=== PATIENT | female | born 1990 | race Caucasian/White ===

== ENCOUNTER 2017-10-14 06:07 | Inpatient (IN) | payer MEDICARE, MEDICAID ==
[~2017-10-14] VITALS: Ht 152.4 cm; Wt 53.1 kg
[~2017-10-14 06:07] MED LIST: ANAPROX DS550 MG PO; AUGMENTIN 875 M1 TAB PO; BACTRIM DS 8001 TA1 PO; CLARITIN10 MG PO; CLINDAMYCIN150 MG PO; CYMBALTA60 MG PO; DIFLUCAN150 MG PO; FLEXERIL10 MG; FLEXERIL10 MG PO; FLEXERIL5 MG PO; HUMALOG 751 UNIT/0.0 SC; HUMALOG100 U/ML SC; INSULIN REGULAR HUMAN IV; INSULIN SYRING1 EAC1 MC; LANTUS100 U/ML; LANTUS100 U/ML SC; LISINOPRIL10 MG PO; MIRALAX POWDER255 GM PO; MOTRIN400 MG PO; MOTRIN800 MG PO; NAPROSYN500 MG PO; NEURONTIN300 MG PO; NORCO 325 MG-51 TAB PO; PROVENTIL0.09 MG/AC IH; SEPTRA DS 800 M1 TAB PO; SEROQUEL200 MG PO; SLIDING SCALE INSULI; TEST STRIPS1 EACH MC; TRAMADOL HCL50 MG PO; TRICOR134 MG PO; ULTRAM50 MG PO; VICODIN 5/500 505 MG PO; VICODIN 500 MG-1 TAB PO; XANAX1 MG PO; ZANTAC150 MG PO; ZOCOR20 MG PO; ZOFRAN4 MG PO
[2017-10-14 06:10] VITALS: BP 132/92
[2017-10-14 06:38] LABS: BASO % 0.2 % (0.0-1.0); EOS % 0.1 % (1.0-4.0); HEMATOCRIT 42.2 % (37.0-47.0); HEMOGLOBIN 14.1 g/dl (12.0-16.0); LYMPH # 1.2 10*3/uL (1.3-4.4); MEAN CELL VOLUME 97.5 fl (81.0-99.0); MEAN CORPUSCULAR HGB 32.6 pg (27.0-31.0); MEAN CORPUSCULAR HGB CONC 33.4 g/dl (33.0-37.0); MEAN PLATELET VOLUME 10.2 fl (9.6-12.3); MONO # 0.7 10*3/uL (0.1-1.0); NEUT # 10.1 10*3/uL (2.3-7.9); NEUT % 82.6 % (47.0-73.0); PLATELET COUNT AUTOMATED 233 10*3/uL (130-400); RED BLOOD COUNT 4.33 10*6/uL (4.10-5.10); RED CELL DISTRI WIDTH 12.7 % (0-14.5); WHITE BLOOD COUNT 12.3 10*3/uL (4.8-10.8)
[2017-10-14 06:45] LABS: INTERNATIONAL NORM RATIO 0.9 (2.0-3.5)
[2017-10-14 06:53] LABS: ALBUMIN 3.9 gm/dl (3.1-4.5); ALKALINE PHOSPHATASE 184 U/L (45-117); BUN 25 mg/dl (7-24); CHLORIDE 86 mmol/L (98-107); CREATININE 2.11 mg/dL (0.55-1.02); LIPASE 48 U/L (73-393); POTASSIUM 3.9 mmol/L (3.5-5.1); SGOT/AST 15 IU/L (3-35); SGPT/ALT 28 U/L (12-78); SODIUM 129 mmol/L (136-145); TOTAL PROTEIN 8.8 gm/dL (6.4-8.2)
[2017-10-14 06:55] LABS: B-hCG (QUALITATIVE) NEGATIVE (NEGATIVE)
[2017-10-14 07:03] LABS: TROPONIN I < 0.015 ng/ml (<0.045)
[2017-10-14 07:31] VITALS: BP 118/72
[2017-10-14 08:00] VITALS: BP 123/54
[2017-10-14 09:05] LABS: BILIRUBIN NEGATIVE (NEGATIVE); BLOOD 1+ (NEGATIVE); CLARITY SL CLOUDY (CLEAR); COLOR YELLOW (YELLOW); GLUCOSE 2+ (NEGATIVE); KETONE 3+ (NEGATIVE); LEUKO ESTERASE NEGATIVE (NEGATIVE); NITRITE NEGATIVE (NEGATIVE); PH 5.5 (5.0-9.0); UROBILINOGEN 0.2 E.U./dl (0.2-1.0)
[2017-10-14 09:18] LABS: ALBUMIN 3.1 gm/dl (3.1-4.5); ALKALINE PHOSPHATASE 154 U/L (45-117); BUN 22 mg/dl (7-24); CHLORIDE 106 mmol/L (98-107); CREATININE 1.56 mg/dL (0.55-1.02); POTASSIUM 3.9 mmol/L (3.5-5.1); SGOT/AST 14 IU/L (3-35); SGPT/ALT 22 U/L (12-78); SODIUM 139 mmol/L (136-145)
[2017-10-14 09:27] LABS: TROPONIN I < 0.015 ng/ml (<0.045)
[2017-10-14] MEDS ORDERED: LANTUS SOL100 UNIT/1 SC (09:29)
[2017-10-14 09:37] LABS: BACTERIA 2+; EPITHELIAL CELLS 21-30; RBC 0-2 rbc/hpf (0-2)
[2017-10-14 09:54] LABS: VENOUS BLOOD GAS O2 SAT 85.9 % (40-85); VENOUS PH 7.102 (7.32-7.43)
[2017-10-14 12:00] VITALS: BP 131/89
[2017-10-14 12:23] LABS: ALBUMIN 3.2 gm/dl (3.1-4.5); ALKALINE PHOSPHATASE 145 U/L (45-117); BUN 19 mg/dl (7-24); CHLORIDE 109 mmol/L (98-107); PHOSPHOROUS 1.9 mg/dL (2.5-4.9); POTASSIUM 4.1 mmol/L (3.5-5.1); SGOT/AST 11 IU/L (3-35); SGPT/ALT 22 U/L (12-78); SODIUM 142 mmol/L (136-145); TOTAL PROTEIN 7.2 gm/dL (6.4-8.2)
[2017-10-14 12:24] LABS: TROPONIN I < 0.015 ng/ml (<0.045)
[2017-10-14 14:25] LABS: URINE AMPHETAMINES < 1000 (1000ng/ml); URINE BARBITURATES < 200 (200ng/ml); URINE BENZODIAZEPINES < 200 (200ng/ml); URINE CANNABINOIDS (THC) > 50 (50ng/ml); URINE COCAINE < 300 (300ng/ml); URINE METHADONE < 300 (300ng/ml); URINE OPIATES > 300 (300ng/ml); URINE PHENCYCLIDINE < 25 (25ng/ml)
[2017-10-14 16:00] VITALS: BP 108/69
[2017-10-14 16:11] LABS: ALBUMIN 3.1 gm/dl (3.1-4.5); CREATININE 1.41 mg/dL (0.55-1.02); PHOSPHOROUS 2.8 mg/dL (2.5-4.9); POTASSIUM 4.3 mmol/L (3.5-5.1); TOTAL PROTEIN 7.1 gm/dL (6.4-8.2)
[2017-10-14 18:35] LABS: ALBUMIN 2.8 gm/dl (3.1-4.5); CREATININE 1.37 mg/dL (0.55-1.02); PHOSPHOROUS 3.3 mg/dL (2.5-4.9); TOTAL PROTEIN 6.3 gm/dL (6.4-8.2)
[2017-10-14 20:00] VITALS: BP 120/78
[2017-10-15] VITALS: BP 92/58
[2017-10-15 00:20] LABS: BUN 11 mg/dl (7-24); CREATININE 1.25 mg/dL (0.55-1.02)
[2017-10-15 00:21] LABS: CHLORIDE 106 mmol/L (98-107); POTASSIUM 3.2 mmol/L (3.5-5.1); SODIUM 139 mmol/L (136-145)
[2017-10-15 04:00] VITALS: BP 95/62
[2017-10-15 04:05] LABS: BASO % 0.2 % (0.0-1.0); EOS # 0.1 10*3/uL (0.0-0.4); EOS % 0.8 % (1.0-4.0); LYMPH # 1.4 10*3/uL (1.3-4.4); LYMPH % 13.3 % (27.0-41.0); MEAN CELL VOLUME 96.4 fl (81.0-99.0); MEAN CORPUSCULAR HGB 32.5 pg (27.0-31.0); MEAN CORPUSCULAR HGB CONC 33.7 g/dl (33.0-37.0); MEAN PLATELET VOLUME 9.3 fl (9.6-12.3); MONO # 0.9 10*3/uL (0.1-1.0); MONO % 8.6 % (3.0-9.0); NEUT # 8.1 10*3/uL (2.3-7.9); NEUT % 76.7 % (47.0-73.0); RED BLOOD COUNT 3.05 10*6/uL (4.10-5.10); RED CELL DISTRI WIDTH 12.8 % (0-14.5); WHITE BLOOD COUNT 10.6 10*3/uL (4.8-10.8)
[2017-10-15 04:07] LABS: HEMATOCRIT 29.4 % (37.0-47.0); HEMOGLOBIN 9.9 g/dl (12.0-16.0); PLATELET COUNT AUTOMATED 162 10*3/uL (130-400)
[2017-10-15 04:38] LABS: BUN 9 mg/dl (7-24); CHLORIDE 106 mmol/L (98-107); CREATININE 1.13 mg/dL (0.55-1.02); POTASSIUM 3.5 mmol/L (3.5-5.1); SODIUM 139 mmol/L (136-145)
[2017-10-15 04:39] LABS: FREE T4 0.77 ng/dl (0.76-1.46); PHOSPHOROUS 1.3 mg/dL (2.5-4.9)
[2017-10-15 04:45] LABS: THYROID STIM HORMONE (HS) 1.85 uIU/ml (0.358-4.75)
[2017-10-15 07:24] LABS: VITAMIN D, 25-HYDROXY 12.8 ng/mL (30-100)
[2017-10-15 08:00] VITALS: BP 107/73
[2017-10-15 08:10] LABS: ALBUMIN 2.9 gm/dl (3.1-4.5); ALKALINE PHOSPHATASE 122 U/L (45-117); BUN 7 mg/dl (7-24); CHLORIDE 108 mmol/L (98-107); CREATININE 1.23 mg/dL (0.55-1.02); SGOT/AST 11 IU/L (3-35); SGPT/ALT 21 U/L (12-78); SODIUM 142 mmol/L (136-145); TOTAL PROTEIN 6.3 gm/dL (6.4-8.2)
[2017-10-15 08:17] LABS: PHOSPHOROUS 0.6 mg/dL (2.5-4.9)
[2017-10-15 10:52] LABS: ALBUMIN 2.8 gm/dl (3.1-4.5); ALKALINE PHOSPHATASE 117 U/L (45-117); BUN 6 mg/dl (7-24); CHLORIDE 106 mmol/L (98-107); CREATININE 1.16 mg/dL (0.55-1.02); PHOSPHOROUS 1.7 mg/dL (2.5-4.9); POTASSIUM 3.8 mmol/L (3.5-5.1); SGOT/AST 11 IU/L (3-35); SGPT/ALT 17 U/L (12-78); SODIUM 139 mmol/L (136-145); TOTAL PROTEIN 6.2 gm/dL (6.4-8.2)
[2017-10-15 12:00] VITALS: BP 108/66
[2017-10-15 13:24] LABS: BUN 6 mg/dl (7-24); CHLORIDE 105 mmol/L (98-107); POTASSIUM 3.5 mmol/L (3.5-5.1); SODIUM 138 mmol/L (136-145)
[2017-10-15 13:27] LABS: ALKALINE PHOSPHATASE 132 U/L (45-117); CREATININE 1.21 mg/dL (0.55-1.02); PHOSPHOROUS 3.1 mg/dL (2.5-4.9); SGOT/AST 12 IU/L (3-35); SGPT/ALT 21 U/L (12-78); TOTAL PROTEIN 6.7 gm/dL (6.4-8.2)
[2017-10-15 16:00] VITALS: BP 103/74
[2017-10-15 16:41] LABS: ALBUMIN 2.9 gm/dl (3.1-4.5); ALKALINE PHOSPHATASE 119 U/L (45-117); BUN 4 mg/dl (7-24); CHLORIDE 107 mmol/L (98-107); CREATININE 1.04 mg/dL (0.55-1.02); PHOSPHOROUS 2.8 mg/dL (2.5-4.9); POTASSIUM 3.5 mmol/L (3.5-5.1); SGOT/AST 12 IU/L (3-35); SGPT/ALT 18 U/L (12-78); SODIUM 140 mmol/L (136-145); TOTAL PROTEIN 6.4 gm/dL (6.4-8.2)
[2017-10-15 19:57] LABS: ALBUMIN 2.7 gm/dl (3.1-4.5); ALKALINE PHOSPHATASE 109 U/L (45-117); BUN 4 mg/dl (7-24); CHLORIDE 105 mmol/L (98-107); CREATININE 0.88 mg/dL (0.55-1.02); PHOSPHOROUS 3.9 mg/dL (2.5-4.9); POTASSIUM 3.8 mmol/L (3.5-5.1); SGOT/AST 13 IU/L (3-35); SGPT/ALT 16 U/L (12-78); SODIUM 138 mmol/L (136-145); TOTAL PROTEIN 5.9 gm/dL (6.4-8.2)
[2017-10-15 20:00] VITALS: BP 121/84
[2017-10-15 22:24] LABS: ALBUMIN 2.8 gm/dl (3.1-4.5); ALKALINE PHOSPHATASE 110 U/L (45-117); BUN 3 mg/dl (7-24); CHLORIDE 105 mmol/L (98-107); CREATININE 0.86 mg/dL (0.55-1.02); PHOSPHOROUS 2.4 mg/dL (2.5-4.9); POTASSIUM 3.5 mmol/L (3.5-5.1); SGOT/AST 11 IU/L (3-35); SGPT/ALT 19 U/L (12-78); SODIUM 139 mmol/L (136-145)
[2017-10-16] VITALS: BP 107/68
[2017-10-16 04:00] VITALS: BP 120/84
[2017-10-16 06:02] LABS: ALBUMIN 2.7 gm/dl (3.1-4.5); ALKALINE PHOSPHATASE 116 U/L (45-117); BUN 3 mg/dl (7-24); CHLORIDE 104 mmol/L (98-107); PHOSPHOROUS 1.7 mg/dL (2.5-4.9); POTASSIUM 3.6 mmol/L (3.5-5.1); SGOT/AST 15 IU/L (3-35); SGPT/ALT 18 U/L (12-78); SODIUM 138 mmol/L (136-145)
[2017-10-16 07:32] LABS: BASO % 0.1 % (0.0-1.0); EOS # 0.2 10*3/uL (0.0-0.4); EOS % 1.8 % (1.0-4.0); HEMOGLOBIN 10.3 g/dl (12.0-16.0); LYMPH # 1.7 10*3/uL (1.3-4.4); LYMPH % 19.5 % (27.0-41.0); MEAN CELL VOLUME 95.5 fl (81.0-99.0); MEAN CORPUSCULAR HGB 32.8 pg (27.0-31.0); MEAN CORPUSCULAR HGB CONC 34.3 g/dl (33.0-37.0); MEAN PLATELET VOLUME 10.4 fl (9.6-12.3); MONO # 0.6 10*3/uL (0.1-1.0); NEUT # 6.1 10*3/uL (2.3-7.9); NEUT % 71.4 % (47.0-73.0); PLATELET COUNT AUTOMATED 188 10*3/uL (130-400); RED BLOOD COUNT 3.14 10*6/uL (4.10-5.10); RED CELL DISTRI WIDTH 12.9 % (0-14.5); WHITE BLOOD COUNT 8.6 10*3/uL (4.8-10.8)
[2017-10-16 08:00] VITALS: BP 121/88
[2017-10-16 10:14] LABS: ALBUMIN 2.8 gm/dl (3.1-4.5); BUN 2 mg/dl (7-24); CHLORIDE 102 mmol/L (98-107); CREATININE 0.97 mg/dL (0.55-1.02); PHOSPHOROUS 2.1 mg/dL (2.5-4.9); POTASSIUM 3.8 mmol/L (3.5-5.1); SGOT/AST 16 IU/L (3-35); SGPT/ALT 16 U/L (12-78); SODIUM 136 mmol/L (136-145)
[2017-10-16 10:18] LABS: ALKALINE PHOSPHATASE 124 U/L (45-117)
[2017-10-16 12:00] VITALS: BP 106/74
[2017-10-16 14:52] LABS: ALKALINE PHOSPHATASE 126 U/L (45-117); BUN 2 mg/dl (7-24); CHLORIDE 105 mmol/L (98-107); CREATININE 0.96 mg/dL (0.55-1.02); PHOSPHOROUS 3.8 mg/dL (2.5-4.9); POTASSIUM 4.2 mmol/L (3.5-5.1); SGOT/AST 16 IU/L (3-35); SGPT/ALT 20 U/L (12-78); SODIUM 141 mmol/L (136-145); TOTAL PROTEIN 6.4 gm/dL (6.4-8.2)
[2017-10-16 16:00] VITALS: BP 119/83
[2017-10-16 18:07] LABS: ALKALINE PHOSPHATASE 132 U/L (45-117); BUN 2 mg/dl (7-24); CHLORIDE 103 mmol/L (98-107); CREATININE 0.85 mg/dL (0.55-1.02); PHOSPHOROUS 2.1 mg/dL (2.5-4.9); POTASSIUM 3.8 mmol/L (3.5-5.1); SGOT/AST 14 IU/L (3-35); SGPT/ALT 22 U/L (12-78); SODIUM 140 mmol/L (136-145); TOTAL PROTEIN 6.5 gm/dL (6.4-8.2)
[2017-10-16 20:00] VITALS: BP 134/86
[2017-10-17 00:06] VITALS: BP 122/78
[2017-10-17 04:07] VITALS: BP 95/59
[2017-10-17 05:37] LABS: ALBUMIN 2.8 gm/dl (3.1-4.5); ALKALINE PHOSPHATASE 124 U/L (45-117); BUN 7 mg/dl (7-24); CHLORIDE 102 mmol/L (98-107); PHOSPHOROUS 3.5 mg/dL (2.5-4.9); SGOT/AST 15 IU/L (3-35); SGPT/ALT 17 U/L (12-78); SODIUM 139 mmol/L (136-145)
[2017-10-17 05:54] LABS: BASO % 0.2 % (0.0-1.0); EOS # 0.2 10*3/uL (0.0-0.4); EOS % 3.6 % (1.0-4.0); HEMOGLOBIN 9.9 g/dl (12.0-16.0); LYMPH # 2.2 10*3/uL (1.3-4.4); LYMPH % 40.6 % (27.0-41.0); MEAN CELL VOLUME 95.4 fl (81.0-99.0); MEAN CORPUSCULAR HGB 32.6 pg (27.0-31.0); MEAN CORPUSCULAR HGB CONC 34.1 g/dl (33.0-37.0); MEAN PLATELET VOLUME 9.9 fl (9.6-12.3); MONO # 0.4 10*3/uL (0.1-1.0); MONO % 6.8 % (3.0-9.0); NEUT # 2.6 10*3/uL (2.3-7.9); NEUT % 48.6 % (47.0-73.0); PLATELET COUNT AUTOMATED 185 10*3/uL (130-400); RED BLOOD COUNT 3.04 10*6/uL (4.10-5.10); RED CELL DISTRI WIDTH 12.7 % (0-14.5); WHITE BLOOD COUNT 5.3 10*3/uL (4.8-10.8)
[2017-10-17 08:00] VITALS: BP 119/79
[2017-10-17 12:00] VITALS: BP 120/77
[2017-10-17] MEDS ORDERED: VITAMIN D5000 UNI1 PO (12:46)
[2017-10-17] MEDS ORDERED: NATURE'S BLEND F1 MG PO (12:46)
[2017-10-17] MEDS ORDERED: SEPTDS PO (12:46)
== END 2017-10-17 13:33 | disposition home or self-care (01) | DRG 871 ==
LOC: ED 06:07 → ICCU 06:27 → EDHOLD 06:27 → ICCU 07:15
PROVIDERS: Emergency Medicine Emergency Medical Services; Internal Medicine; Internal Medicine Hospice and Palliative Medicine
DX: A41.9 Sepsis, unspecified organism (principal); N17.0 Acute kidney failure with tubular necrosis; E10.10 Type 1 diabetes mellitus with ketoacidosis without coma; K31.84 Gastroparesis; E44.1 Mild protein-calorie malnutrition; E10.42 Type 1 diabetes mellitus with diabetic polyneuropathy; J18.9 Pneumonia, unspecified organism; N39.0 Urinary tract infection, site not specified; F31.30 Bipolar disorder, current episode depressed, mild or moderate severity, unspecified; E83.39 Other disorders of phosphorus metabolism; R65.20 Severe sepsis without septic shock; R31.9 Hematuria, unspecified; E87.8 Other disorders of electrolyte and fluid balance, not elsewhere classified; E83.51 Hypocalcemia; E83.41 Hypermagnesemia; R74.8 Abnormal levels of other serum enzymes; E10.65 Type 1 diabetes mellitus with hyperglycemia; E28.2 Polycystic ovarian syndrome; F41.1 Generalized anxiety disorder; D64.9 Anemia, unspecified; F11.10 Opioid abuse, uncomplicated; F12.10 Cannabis abuse, uncomplicated; E10.43 Type 1 diabetes mellitus with diabetic autonomic (poly)neuropathy; Z88.8 Allergy status to other drugs, medicaments and biological substances; Z91.040 Latex allergy status; Z79.899 Other long term (current) drug therapy; Z79.4 Long term (current) use of insulin; Z84.89 Family history of other specified conditions; Z68.22 Body mass index [BMI] 22.0-22.9, adult; M94.0 Chondrocostal junction syndrome [Tietze]; K21.9 Gastro-esophageal reflux disease without esophagitis

== ENCOUNTER 2019-09-20 12:33 | Inpatient (IN) | payer MEDICARE ==
[~2019-09-20] VITALS: Ht 152.4 cm; Wt 54.0 kg
[~2019-09-20 12:33] MED LIST changes: +LANTUS SOL100 UNIT/1 SC; +NATURE'S BLEND F1 MG PO; +SEPTDS PO; +VITAMIN D5000 UNI1 PO
[2019-09-20 12:41] VITALS: BP 124/82
[2019-09-20 13:00] VITALS: BP 118/80
[2019-09-20 13:01] LABS: BASO % 0.3 % (0.0-1.0); EOS % 0.1 % (1.0-4.0); HEMATOCRIT 46.1 % (37.0-47.0); LYMPH # 1.1 10*3/uL (1.3-4.4); LYMPH % 9.6 % (27.0-41.0); MEAN CELL VOLUME 94.1 fl (81.0-99.0); MEAN CORPUSCULAR HGB 32.4 pg (27.0-31.0); MEAN CORPUSCULAR HGB CONC 34.5 g/dl (33.0-37.0); MONO # 0.3 10*3/uL (0.1-1.0); MONO % 2.6 % (3.0-9.0); NEUT # 9.7 10*3/uL (2.3-7.9); NEUT % 87.1 % (47.0-73.0); PLATELET COUNT AUTOMATED 336 10*3/uL (130-400); RED CELL DISTRI WIDTH 12.1 % (0-14.5); WHITE BLOOD COUNT 11.1 10*3/uL (4.8-10.8)
[2019-09-20 13:14] LABS: ALBUMIN 4.2 gm/dl (3.1-4.5); CREATININE 1.56 mg/dL (0.55-1.02); POTASSIUM 4.2 mmol/L (3.5-5.1); TOTAL PROTEIN 8.7 gm/dL (6.4-8.2)
[2019-09-20 14:30] VITALS: BP 116/80
[2019-09-20 14:51] LABS: BILIRUBIN NEGATIVE (NEGATIVE); BLOOD 1+ (NEGATIVE); CLARITY SL CLOUDY (CLEAR); COLOR YELLOW (YELLOW); GLUCOSE 3+ (NEGATIVE); KETONE 3+ (NEGATIVE)
[2019-09-20 14:52] LABS: LEUKO ESTERASE NEGATIVE (NEGATIVE); NITRITE NEGATIVE (NEGATIVE); UROBILINOGEN 0.2 E.U./dl (0.2-1.0)
[2019-09-20 14:53] LABS: WBC 0-2 wbc/hpf (0-5)
[2019-09-20 14:54] LABS: BACTERIA 1+; EPITHELIAL CELLS 41-50
[2019-09-20 14:58] LABS: URINE AMPHETAMINES < 1000 (1000ng/ml); URINE BARBITURATES < 200 (200ng/ml); URINE BENZODIAZEPINES < 200 (200ng/ml); URINE CANNABINOIDS (THC) > 50 (50ng/ml); URINE COCAINE < 300 (300ng/ml); URINE METHADONE < 300 (300ng/ml); URINE OPIATES < 300 (300ng/ml)
[2019-09-20 15:00] VITALS: BP 121/82
[2019-09-20 15:00] LABS: URINE PHENCYCLIDINE < 25 (25ng/ml)
[2019-09-20 16:00] VITALS: BP 120/73; BP 126/73
--- NOTE | 2019-09-20 16:00 | NUR ---
A 28, admitted to [facility], under the services of CISCO Otto DO with a diagnosis of DKA. Chief complaint is HIGH BLOOD SUGAR,EMESIS. Patient arrived via stretcher from ER. Monitor applied. Initial assessment completed. Vital signs taken and recorded. CISCO OTTO DO notified of admission to the unit. Orders received. See assessment for past medical history, medications and allergies. Patient and/or family oriented to unit. [facility] visitation policy reviewed. Clothing/patient valuable form completed. EFRAIN GRULLON
--- NOTE | 2019-09-20 17:40 | NUR ---
MEDICATED WITH ZOFRAN AND TYLENOL FOR COMPLAINTS OF NAUSEA AND BODY ACHES.
[2019-09-20 17:44] LABS: BUN 13 mg/dl (7-24); CHLORIDE 106 mmol/L (98-107); CREATININE 1.15 mg/dL (0.55-1.02); POTASSIUM 4.4 mmol/L (3.5-5.1); SODIUM 137 mmol/L (136-145)
--- NOTE | 2019-09-20 18:30 | NUR ---
VOICES THAT ZOFRAN WAS EFFECTIVE FOR NAUSEA AND TYLENOL FOR BODY ACHES.
--- NOTE | 2019-09-20 19:52 | NUR ---
SHELLI INFORMED THAT PATIENTS HEART RATE HAS BEEN SITTING AT 130-140'S DURING REST. PATIENT DOES C/O PALITATIONS AND CURRENT HEADACHE. BGM IS 287 AND BLOOD PRESSURE OF 100/57. INFORMED OF WHAT PATIENT HAS RECEIVED IVF LEYVA. STATED HE WILL LOOK INTO CHART.
[2019-09-20 20:00] VITALS: BP 100/57
--- NOTE | 2019-09-20 20:23 | NUR ---
Pt. blood sugar result 287. Covered with 10 units of Regular Insulin as ordered. OLIVIA BARILLAS
--- NOTE | 2019-09-20 21:40 | NUR ---
PATIENT TAKEN OFF FLOOR FOR CT OF HEAD W/O CONTRAST.
--- NOTE | 2019-09-20 22:28 | NUR ---
PATIENT STATED THAT SHE WAS STARVING AND STATED THAT SHE WAS NO LONGER NAUSEATED, PATIENT REQUESTING FOR DIET TO BE UPGRADED. INFORMED. STATED HE WILL PLACED A SOFT DIET ORDER, AND OK TO GIVE BOX LUNCH.
[2019-09-20 22:40] LABS: BUN 10 mg/dl (7-24); CHLORIDE 110 mmol/L (98-107); CREATININE 1.15 mg/dL (0.55-1.02); POTASSIUM 3.7 mmol/L (3.5-5.1); SODIUM 138 mmol/L (136-145)
--- NOTE | 2019-09-20 23:00 | NUR ---
Pt. blood sugar result 129. NO COVERAGE NEEDED PER [facility] OLIVIA BARILLAS
[2019-09-21] VITALS: BP 106/57
--- NOTE | 2019-09-21 04:00 | NUR ---
PATIENT SLEEPING, EYES CLOSED. NO DISTRESS NOTED
[2019-09-21 05:52] LABS: BUN 8 mg/dl (7-24); CHLORIDE 112 mmol/L (98-107); CREATININE 1.09 mg/dL (0.55-1.02); POTASSIUM 3.2 mmol/L (3.5-5.1); SODIUM 143 mmol/L (136-145)
[2019-09-21 06:11] LABS: BASO % 0.1 % (0.0-1.0); EOS # 0.2 10*3/uL (0.0-0.4); EOS % 2.8 % (1.0-4.0); HEMATOCRIT 35.2 % (37.0-47.0); LYMPH # 2.8 10*3/uL (1.3-4.4); LYMPH % 39.4 % (27.0-41.0); MEAN CELL VOLUME 93.9 fl (81.0-99.0); MEAN CORPUSCULAR HGB CONC 34.1 g/dl (33.0-37.0); MEAN PLATELET VOLUME 9.4 fl (9.6-12.3); MONO # 0.5 10*3/uL (0.1-1.0); MONO % 7.2 % (3.0-9.0); NEUT # 3.5 10*3/uL (2.3-7.9); NEUT % 50.4 % (47.0-73.0); PLATELET COUNT AUTOMATED 277 10*3/uL (130-400); RED BLOOD COUNT 3.75 10*6/uL (4.10-5.10); RED CELL DISTRI WIDTH 12.2 % (0-14.5); WHITE BLOOD COUNT 7.1 10*3/uL (4.8-10.8)
--- NOTE | 2019-09-21 06:45 | NUR ---
IN TO SEE PATIENT. STATED 40 KDUR X1 ORDER WILL BE PLACED AND POSSIBLE D/C TODAY
[2019-09-21 08:00] VITALS: BP 112/75
--- NOTE | 2019-09-21 09:00 | NUR ---
ATE BREAKFAST WITH ANY SIGNS OF NAUSEA OR VOMITING. VOICS THAT SHE FEELS MUCH BETTER. IVF'S D/C'D. VITALS STABLE
[2019-09-21] MEDS ORDERED: INSULIN SYRING1 EA33 MC (09:48)
[2019-09-21] MEDS ORDERED: LANTUS SOL100 UNIT/1 SC (09:48)
[2019-09-21] MEDS ORDERED: ONDANSETRON4 MG/2 M3 PO (09:48)
[2019-09-21] MEDS ORDERED: HUMALOG100 UNIT/1 SC (09:48)
[2019-09-21] MEDS ORDERED: TEST STRIPS1 EACH MC (09:48)
--- NOTE | 2019-09-21 12:20 | NUR ---
PT BEING DISCHARGED TO HOME TODAY. NO NEEDS AT THIS TIME.
--- NOTE | 2019-09-21 12:30 | NUR ---
Discharge instructions reviewed with patient/family. Patient receptive and verbalizes understanding. Follow-up care arranged. Written instructions given to patient/family. FRANKLIN BORJA
== END 2019-09-21 12:30 | disposition home or self-care (01) | DRG 637 ==
LOC: ED 12:33 → EDBD 12:37 → EDHOLD 14:31 → ICCU 14:31
PROVIDERS: Internal Medicine; Nurse Practitioner Family; Student in an Organized Health Care Education/Training Program; ADMIT Internal Medicine
DX: E10.10 Type 1 diabetes mellitus with ketoacidosis without coma (principal); N17.0 Acute kidney failure with tubular necrosis; D72.829 Elevated white blood cell count, unspecified; R00.0 Tachycardia, unspecified; F31.9 Bipolar disorder, unspecified; E10.43 Type 1 diabetes mellitus with diabetic autonomic (poly)neuropathy; K31.84 Gastroparesis; F41.1 Generalized anxiety disorder; E10.40 Type 1 diabetes mellitus with diabetic neuropathy, unspecified; Z84.89 Family history of other specified conditions; Z88.8 Allergy status to other drugs, medicaments and biological substances; Z91.040 Latex allergy status

== ENCOUNTER 2019-11-27 16:25 | Inpatient (IN) | payer MEDICARE, OTHER ==
[~2019-11-27] VITALS: Ht 154.9 cm; Wt 60.5 kg
[~2019-11-27 16:25] MED LIST changes: +HUMALOG100 UNIT/1 SC; +INSULIN SYRING1 EA33 MC; +ONDANSETRON4 MG/2 M3 PO
[2019-11-27 16:30] VITALS: BP 124/77
[2019-11-27 17:49] LABS: BASO % 0.3 % (0.0-1.0); EOS # 0.4 10*3/uL (0.0-0.4); EOS % 3.9 % (1.0-4.0); LYMPH # 2.5 10*3/uL (1.3-4.4); LYMPH % 27.6 % (27.0-41.0); MEAN CELL VOLUME 91.1 fl (81.0-99.0); MEAN CORPUSCULAR HGB 31.4 pg (27.0-31.0); MEAN CORPUSCULAR HGB CONC 34.5 g/dl (33.0-37.0); MEAN PLATELET VOLUME 9.3 fl (9.6-12.3); MONO # 0.8 10*3/uL (0.1-1.0); MONO % 8.7 % (3.0-9.0); NEUT # 5.4 10*3/uL (2.3-7.9); NEUT % 59.4 % (47.0-73.0); PLATELET COUNT AUTOMATED 314 10*3/uL (130-400); RED BLOOD COUNT 4.17 10*6/uL (4.10-5.10); RED CELL DISTRI WIDTH 12.2 % (0-14.5); WHITE BLOOD COUNT 9.1 10*3/uL (4.8-10.8)
[2019-11-27 18:03] LABS: ALBUMIN 3.4 gm/dl (3.1-4.5); ALKALINE PHOSPHATASE 93 U/L (45-117); BUN 13 mg/dl (7-24); CHLORIDE 102 mmol/L (98-107); CREATININE 1.05 mg/dL (0.55-1.02); LIPASE 35 U/L (73-393); POTASSIUM 3.4 mmol/L (3.5-5.1); SGOT/AST 16 IU/L (3-35); SGPT/ALT 31 U/L (12-78); SODIUM 137 mmol/L (136-145); TOTAL PROTEIN 7.3 gm/dL (6.4-8.2)
[2019-11-27 18:47] LABS: CLARITY CLEAR (CLEAR); COLOR YELLOW (YELLOW); GLUCOSE 3+ (NEGATIVE)
[2019-11-27 18:48] LABS: BILIRUBIN NEGATIVE (NEGATIVE); BLOOD NEGATIVE (NEGATIVE); KETONE NEGATIVE (NEGATIVE); LEUKO ESTERASE NEGATIVE (NEGATIVE); NITRITE NEGATIVE (NEGATIVE); PH 6.5 (5.0-9.0); SPECIFIC GRAVITY 1.015 (1.005-1.030); UROBILINOGEN 0.2 E.U./dl (0.2-1.0)
[2019-11-27 18:55] LABS: BACTERIA 1+
[2019-11-27 20:22] VITALS: BP 102/64
[2019-11-27 22:34] VITALS: BP 94/60
[2019-11-27 22:50] VITALS: BP 98/60
[2019-11-28 00:50] VITALS: BP 111/71
[2019-11-28 03:15] VITALS: BP 107/69
[2019-11-28 06:11] LABS: BASO % 0.3 % (0.0-1.0); EOS # 0.5 10*3/uL (0.0-0.4); EOS % 4.8 % (1.0-4.0); HEMATOCRIT 36.1 % (37.0-47.0); LYMPH # 2.7 10*3/uL (1.3-4.4); LYMPH % 25.8 % (27.0-41.0); MEAN CORPUSCULAR HGB 31.5 pg (27.0-31.0); MEAN CORPUSCULAR HGB CONC 33.5 g/dl (33.0-37.0); MEAN PLATELET VOLUME 10.1 fl (9.6-12.3); MONO % 9.6 % (3.0-9.0); NEUT # 6.2 10*3/uL (2.3-7.9); NEUT % 59.3 % (47.0-73.0); PLATELET COUNT AUTOMATED 291 10*3/uL (130-400); RED BLOOD COUNT 3.84 10*6/uL (4.10-5.10); RED CELL DISTRI WIDTH 12.2 % (0-14.5); WHITE BLOOD COUNT 10.5 10*3/uL (4.8-10.8)
[2019-11-28 06:39] LABS: BUN 17 mg/dl (7-24); CHLORIDE 106 mmol/L (98-107); POTASSIUM 3.5 mmol/L (3.5-5.1); SODIUM 141 mmol/L (136-145)
[2019-11-28 06:52] LABS: CHOLESTEROL 162 mg/dL (<200); CREATININE 1.02 mg/dL (0.55-1.02); HDL CHOLESTEROL 33 mg/dl (40-60); LDL CHOLESTEROL 67 mg/dL (9-159); TRIGLYCERIDES 308 mg/dl (<150); VLDL CHOLESTEROL 62 mg/dL (6-40)
[2019-11-28 08:00] VITALS: BP 128/81
[2019-11-28 12:00] VITALS: BP 119/74
[2019-11-28 16:00] VITALS: BP 100/59
[2019-11-28 20:00] VITALS: BP 117/76
[2019-11-29] VITALS: BP 97/57
[2019-11-29 02:30] VITALS: BP 102/71
[2019-11-29 06:00] VITALS: BP 109/74
[2019-11-29 12:00] VITALS: BP 112/82
[2019-11-29 16:00] VITALS: BP 139/69
== END 2019-11-29 18:55 | disposition left against medical advice (07) | DRG 158 ==
LOC: ED 16:25 → EDHOLD 21:03 → 4E 21:03
PROVIDERS: Nurse Practitioner Family; Student in an Organized Health Care Education/Training Program; ADMIT Emergency Medicine
DX: K04.7 Periapical abscess without sinus (principal); E44.0 Moderate protein-calorie malnutrition; F41.1 Generalized anxiety disorder; E10.65 Type 1 diabetes mellitus with hyperglycemia; F12.90 Cannabis use, unspecified, uncomplicated; Z53.29 Procedure and treatment not carried out because of patient's decision for other reasons; E78.1 Pure hyperglyceridemia; F31.9 Bipolar disorder, unspecified; F17.210 Nicotine dependence, cigarettes, uncomplicated; E10.40 Type 1 diabetes mellitus with diabetic neuropathy, unspecified; Z81.1 Family history of alcohol abuse and dependence; Z88.8 Allergy status to other drugs, medicaments and biological substances; Z91.040 Latex allergy status; Z71.6 Tobacco abuse counseling; Z68.25 Body mass index [BMI] 25.0-25.9, adult

== ENCOUNTER 2020-01-05 15:28 | Inpatient (IN) | payer MEDICARE, OTHER ==
[~2020-01-05] VITALS: Ht 155 cm; Wt 55.9 kg
[~2020-01-05 15:28] MED LIST changes: -SEROQUEL200 MG PO; +SEROQUEL300 MG PO
[2020-01-05 15:36] VITALS: BP 125/88
[2020-01-05 16:04] LABS: BASO % 0.3 % (0.0-1.0); EOS % 0.3 % (1.0-4.0); HEMATOCRIT 42.2 % (37.0-47.0); LYMPH # 1.3 10*3/uL (1.3-4.4); LYMPH % 18.5 % (27.0-41.0); MEAN CELL VOLUME 93.4 fl (81.0-99.0); MEAN CORPUSCULAR HGB 31.2 pg (27.0-31.0); MEAN CORPUSCULAR HGB CONC 33.4 g/dl (33.0-37.0); MEAN PLATELET VOLUME 9.2 fl (9.6-12.3); MONO # 0.3 10*3/uL (0.1-1.0); MONO % 3.8 % (3.0-9.0); NEUT # 5.2 10*3/uL (2.3-7.9); PLATELET COUNT AUTOMATED 395 10*3/uL (130-400); RED BLOOD COUNT 4.52 10*6/uL (4.10-5.10); RED CELL DISTRI WIDTH 12.3 % (0-14.5); WHITE BLOOD COUNT 6.8 10*3/uL (4.8-10.8)
[2020-01-05 16:15] LABS: ACT PARTIAL THROMBO TIME 25.7 SECONDS (20.0-32.1); INTERNATIONAL NORM RATIO 0.9 (2.0-3.5)
[2020-01-05 16:20] LABS: ALKALINE PHOSPHATASE 93 U/L (45-117); BUN 13 mg/dl (7-24); CHLORIDE 102 mmol/L (98-107); CREATININE 1.53 mg/dL (0.55-1.02); LIPASE 32 U/L (73-393); POTASSIUM 4.1 mmol/L (3.5-5.1); SGOT/AST 13 IU/L (3-35); SGPT/ALT 21 U/L (12-78); SODIUM 137 mmol/L (136-145); TOTAL PROTEIN 8.7 gm/dL (6.4-8.2)
[2020-01-05 16:21] LABS: B-hCG (QUALITATIVE) NEGATIVE (NEGATIVE); TROPONIN I < 0.015 ng/ml (<0.045)
[2020-01-05 17:03] LABS: BILIRUBIN NEGATIVE; BLOOD TRACE-LYSED (NEGATIVE); CLARITY CLEAR (CLEAR); COLOR YELLOW (YELLOW); GLUCOSE 3+; KETONE 3+; LEUKO ESTERASE NEGATIVE (NEGATIVE); NITRITE NEGATIVE (NEGATIVE); SPECIFIC GRAVITY >= 1.030 (1.001-1.030)
[2020-01-05 17:05] LABS: BACTERIA TRACE; RBC 0-2 rbc/hpf (0-2); WBC 0-2 wbc/hpf (0-5)
[2020-01-05 17:06] LABS: HYALINE CAST 16-20
[2020-01-05 17:26] VITALS: BP 146/92
[2020-01-05 18:01] VITALS: BP 126/90
[2020-01-05 20:00] VITALS: BP 124/84
[2020-01-05 22:32] LABS: BUN 10 mg/dl (7-24); CHLORIDE 115 mmol/L (98-107); CREATININE 1.26 mg/dL (0.55-1.02); POTASSIUM 4.2 mmol/L (3.5-5.1); SODIUM 144 mmol/L (136-145)
[2020-01-06] VITALS: BP 91/55
[2020-01-06 04:00] VITALS: BP 112/70
[2020-01-06 04:26] LABS: BASO % 0.1 % (0.0-1.0); EOS % 0.3 % (1.0-4.0); HEMATOCRIT 32.3 % (37.0-47.0); LYMPH # 2.1 10*3/uL (1.3-4.4); LYMPH % 21.1 % (27.0-41.0); MEAN CORPUSCULAR HGB 31.3 pg (27.0-31.0); MEAN CORPUSCULAR HGB CONC 34.1 g/dl (33.0-37.0); MEAN PLATELET VOLUME 9.1 fl (9.6-12.3); MONO # 0.6 10*3/uL (0.1-1.0); MONO % 6.2 % (3.0-9.0); NEUT # 7.2 10*3/uL (2.3-7.9); NEUT % 72.1 % (47.0-73.0); PLATELET COUNT AUTOMATED 302 10*3/uL (130-400); RED BLOOD COUNT 3.51 10*6/uL (4.10-5.10); RED CELL DISTRI WIDTH 12.6 % (0-14.5); WHITE BLOOD COUNT 9.9 10*3/uL (4.8-10.8)
[2020-01-06 04:38] LABS: BUN 7 mg/dl (7-24); CHLORIDE 111 mmol/L (98-107); CREATININE 1.12 mg/dL (0.55-1.02); POTASSIUM 3.5 mmol/L (3.5-5.1); SODIUM 140 mmol/L (136-145)
[2020-01-06 08:00] VITALS: BP 108/73
[2020-01-06 12:00] VITALS: BP 104/67
[2020-01-06 16:00] VITALS: BP 131/85
== END 2020-01-06 19:43 | disposition home or self-care (01) | DRG 637 ==
LOC: ED 15:28 → EDHOLD 16:34 → ICCU 16:34
PROVIDERS: Emergency Medicine; Internal Medicine; ADMIT Family Medicine; ATTEND Family Medicine
DX: E10.10 Type 1 diabetes mellitus with ketoacidosis without coma (principal); N17.0 Acute kidney failure with tubular necrosis; R00.0 Tachycardia, unspecified; E28.2 Polycystic ovarian syndrome; F31.9 Bipolar disorder, unspecified; F12.90 Cannabis use, unspecified, uncomplicated; F41.1 Generalized anxiety disorder; E10.42 Type 1 diabetes mellitus with diabetic polyneuropathy; Z88.8 Allergy status to other drugs, medicaments and biological substances; Z91.040 Latex allergy status; Z79.899 Other long term (current) drug therapy

== ENCOUNTER 2020-02-09 10:56 | Inpatient (IN) | payer MEDICARE, OTHER ==
[~2020-02-09] VITALS: Ht 152.4 cm; Wt 54.4 kg
[2020-02-09 10:57] VITALS: BP 107/55
[2020-02-09 11:28] LABS: MEAN CORPUSCULAR HGB 31.7 pg (27.0-31.0); MEAN CORPUSCULAR HGB CONC 31.7 g/dl (33.0-37.0); MEAN PLATELET VOLUME 9.8 fl (9.6-12.3); PLATELET COUNT AUTOMATED 382 10*3/uL (130-400); RED CELL DISTRI WIDTH 12.2 % (0-14.5); WHITE BLOOD COUNT 25.1 10*3/uL (4.8-10.8)
[2020-02-09 11:39] LABS: ACT PARTIAL THROMBO TIME 27.6 SECONDS (20.0-32.1)
[2020-02-09 11:44] LABS: ALKALINE PHOSPHATASE 122 U/L (45-117); BUN 39 mg/dl (7-24); CHLORIDE 96 mmol/L (98-107); CREATININE 2.18 mg/dL (0.55-1.02); LIPASE 22 U/L (73-393); POTASSIUM 4.3 mmol/L (3.5-5.1); SGOT/AST 8 IU/L (3-35); SGPT/ALT 22 U/L (12-78); SODIUM 132 mmol/L (136-145); TOTAL PROTEIN 7.9 gm/dL (6.4-8.2)
[2020-02-09 11:46] LABS: PLATELET SUFFICIENCY NORMAL (NORMAL); TOTAL CELLS COUNTED 100 #CELLS
[2020-02-09 11:49] LABS: TROPONIN I < 0.015 ng/ml (<0.045)
[2020-02-09 12:28] LABS: BILIRUBIN Negative (Negative); BLOOD Negative (Negative); CLARITY Clear (Clear); COLOR Yellow (Yellow); GLUCOSE 3+ (Negative); LEUKO ESTERASE Negative (Negative); NITRITE Negative (Negative); UROBILINOGEN 0.2 E.U./dl (0.0-1.0)
[2020-02-09 12:38] VITALS: BP 96/40
[2020-02-09 12:49] LABS: KETONE 4+ (Negative)
[2020-02-09 12:59] LABS: RBC 0-2 rbc/hpf (0-2)
[2020-02-09 13:00] VITALS: BP 110/58
[2020-02-09] MEDS ORDERED: TYLENOL325 M1 PO (13:20)
[2020-02-09 13:39] LABS: ALBUMIN 3.3 gm/dl (3.1-4.5); CREATININE 1.84 mg/dL (0.55-1.02); POTASSIUM 4.2 mmol/L (3.5-5.1); TOTAL PROTEIN 6.5 gm/dL (6.4-8.2)
[2020-02-09 15:41] LABS: CREATININE 1.63 mg/dL (0.55-1.02); POTASSIUM 4.4 mmol/L (3.5-5.1)
[2020-02-09 16:00] VITALS: BP 93/45
[2020-02-09 18:10] LABS: CREATININE 1.61 mg/dL (0.55-1.02)
[2020-02-09 20:00] VITALS: BP 92/56
[2020-02-09 23:27] LABS: CREATININE 1.46 mg/dL (0.55-1.02); POTASSIUM 3.5 mmol/L (3.5-5.1)
[2020-02-10] VITALS: BP 90/50
[2020-02-10 00:09] LABS: URINE AMPHETAMINES < 1000 (1000ng/ml); URINE BARBITURATES < 200 (200ng/ml); URINE BENZODIAZEPINES < 200 (200ng/ml); URINE CANNABINOIDS (THC) > 50 (50ng/ml); URINE COCAINE < 300 (300ng/ml); URINE METHADONE < 300 (300ng/ml); URINE OPIATES > 300 (300ng/ml)
[2020-02-10 00:13] LABS: URINE PHENCYCLIDINE < 25 (25ng/ml)
[2020-02-10 04:00] VITALS: BP 94/50
[2020-02-10 05:21] LABS: ALBUMIN 2.8 gm/dl (3.1-4.5); CREATININE 1.28 mg/dL (0.55-1.02); FREE T4 0.78 ng/dl (0.76-1.46); POTASSIUM 3.5 mmol/L (3.5-5.1); TOTAL PROTEIN 5.4 gm/dL (6.4-8.2)
[2020-02-10 05:25] LABS: THYROID STIM HORMONE (HS) 4.35 uIU/ml (0.358-4.75)
[2020-02-10 06:24] LABS: BASO % 0.2 % (0.0-1.0); EOS # 0.1 10*3/uL (0.0-0.4); EOS % 0.6 % (1.0-4.0); HEMATOCRIT 29.2 % (37.0-47.0); LYMPH % 23.9 % (27.0-41.0); MEAN CORPUSCULAR HGB 32.4 pg (27.0-31.0); MEAN CORPUSCULAR HGB CONC 34.2 g/dl (33.0-37.0); MEAN PLATELET VOLUME 9.8 fl (9.6-12.3); MONO # 0.9 10*3/uL (0.1-1.0); MONO % 7.2 % (3.0-9.0); NEUT # 8.4 10*3/uL (2.3-7.9); NEUT % 67.7 % (47.0-73.0); RED BLOOD COUNT 3.09 10*6/uL (4.10-5.10); RED CELL DISTRI WIDTH 12.3 % (0-14.5); WHITE BLOOD COUNT 12.4 10*3/uL (4.8-10.8)
[2020-02-10 06:27] LABS: MEAN CELL VOLUME 94.5 fl (81.0-99.0); PLATELET COUNT AUTOMATED 239 10*3/uL (130-400)
[2020-02-10 07:44] LABS: VITAMIN D, 25-HYDROXY 8.6 ng/mL (30-100)
[2020-02-10 08:00] VITALS: BP 96/50
[2020-02-10 09:20] LABS: CREATININE 1.32 mg/dL (0.55-1.02); POTASSIUM 3.3 mmol/L (3.5-5.1)
[2020-02-10 12:00] VITALS: BP 96/50
[2020-02-10 14:36] LABS: BUN 13 mg/dl (7-24); CHLORIDE 115 mmol/L (98-107); CREATININE 1.19 mg/dL (0.55-1.02); POTASSIUM 3.6 mmol/L (3.5-5.1); SODIUM 142 mmol/L (136-145)
[2020-02-10 16:00] VITALS: BP 94/54
== END 2020-02-10 16:48 | disposition home or self-care (01) | DRG 637 ==
LOC: ED 10:56 → EDHOLD 12:32 → ICCU 12:32
PROVIDERS: Emergency Medicine; Student in an Organized Health Care Education/Training Program; ADMIT Internal Medicine; ATTEND Internal Medicine
DX: E10.10 Type 1 diabetes mellitus with ketoacidosis without coma (principal); N17.0 Acute kidney failure with tubular necrosis; R65.10 Systemic inflammatory response syndrome (SIRS) of non-infectious origin without acute organ dysfunction; E87.1 Hypo-osmolality and hyponatremia; E86.0 Dehydration; E10.40 Type 1 diabetes mellitus with diabetic neuropathy, unspecified; F31.9 Bipolar disorder, unspecified; F41.1 Generalized anxiety disorder; E87.8 Other disorders of electrolyte and fluid balance, not elsewhere classified; E83.39 Other disorders of phosphorus metabolism; Z88.8 Allergy status to other drugs, medicaments and biological substances; Z91.040 Latex allergy status; Z84.89 Family history of other specified conditions

== ENCOUNTER 2020-03-14 16:26 | Inpatient (IN) | payer MEDICARE, OTHER ==
[~2020-03-14] VITALS: Ht 154.9 cm; Wt 55.0 kg
[~2020-03-14 16:26] MED LIST changes: +TYLENOL325 M1 PO
[2020-03-14 16:38] VITALS: BP 109/72
[2020-03-14 17:23] LABS: BASO % 0.5 % (0.0-1.0); EOS # 0.2 10*3/uL (0.0-0.4); EOS % 2.3 % (1.0-4.0); HEMATOCRIT 41.6 % (37.0-47.0); LYMPH # 2.2 10*3/uL (1.3-4.4); LYMPH % 24.6 % (27.0-41.0); MEAN CELL VOLUME 91.4 fl (81.0-99.0); MEAN CORPUSCULAR HGB 31.6 pg (27.0-31.0); MEAN CORPUSCULAR HGB CONC 34.6 g/dl (33.0-37.0); MEAN PLATELET VOLUME 9.5 fl (9.6-12.3); MONO # 0.5 10*3/uL (0.1-1.0); MONO % 5.8 % (3.0-9.0); NEUT # 5.8 10*3/uL (2.3-7.9); NEUT % 66.5 % (47.0-73.0); PLATELET COUNT AUTOMATED 317 10*3/uL (130-400); RED BLOOD COUNT 4.55 10*6/uL (4.10-5.10); RED CELL DISTRI WIDTH 12.4 % (0-14.5); WHITE BLOOD COUNT 8.8 10*3/uL (4.8-10.8)
[2020-03-14 17:39] LABS: ALBUMIN 3.7 gm/dl (3.1-4.5); CREATININE 1.55 mg/dL (0.55-1.02); TOTAL PROTEIN 7.4 gm/dL (6.4-8.2)
[2020-03-14 18:59] VITALS: BP 102/49
[2020-03-14 19:15] VITALS: BP 107/58
[2020-03-14 20:29] LABS: CREATININE 1.8 mg/dL (0.55-1.02); POTASSIUM 3.5 mmol/L (3.5-5.1)
[2020-03-14 21:19] LABS: BILIRUBIN Negative (Negative); BLOOD Negative (Negative); CLARITY Clear (Clear); COLOR Yellow (Yellow); GLUCOSE 3+ (Negative); KETONE 3+ (Negative); LEUKO ESTERASE Negative (Negative); NITRITE Negative (Negative); PH 5.5 (4.5-8.0); SPECIFIC GRAVITY >= 1.030 (1.001-1.030); UROBILINOGEN 0.2 E.U./dl (0.0-1.0)
[2020-03-14 21:30] LABS: BACTERIA TRACE; RBC 0-2 rbc/hpf (0-2); WBC 0-2 wbc/hpf (0-5)
[2020-03-14 23:34] VITALS: BP 98/53
[2020-03-15 00:27] LABS: CREATININE 1.41 mg/dL (0.55-1.02); POTASSIUM 3.5 mmol/L (3.5-5.1)
[2020-03-15 04:00] VITALS: BP 110/69
[2020-03-15 06:18] LABS: BASO % 0.4 % (0.0-1.0); EOS # 0.3 10*3/uL (0.0-0.4); EOS % 5.1 % (1.0-4.0); HEMATOCRIT 34.8 % (37.0-47.0); LYMPH # 2.9 10*3/uL (1.3-4.4); LYMPH % 42.7 % (27.0-41.0); MEAN CELL VOLUME 92.8 fl (81.0-99.0); MEAN CORPUSCULAR HGB 31.7 pg (27.0-31.0); MEAN CORPUSCULAR HGB CONC 34.2 g/dl (33.0-37.0); MEAN PLATELET VOLUME 9.8 fl (9.6-12.3); MONO # 0.5 10*3/uL (0.1-1.0); NEUT % 44.7 % (47.0-73.0); PLATELET COUNT AUTOMATED 277 10*3/uL (130-400); RED BLOOD COUNT 3.75 10*6/uL (4.10-5.10); RED CELL DISTRI WIDTH 12.3 % (0-14.5); WHITE BLOOD COUNT 6.7 10*3/uL (4.8-10.8)
[2020-03-15 06:42] LABS: ALBUMIN 2.8 gm/dl (3.1-4.5); POTASSIUM 3.1 mmol/L (3.5-5.1)
[2020-03-15 06:53] LABS: CREATININE 1.31 mg/dL (0.55-1.02); THYROID STIM HORMONE (HS) 3.98 uIU/ml (0.358-4.75); TOTAL PROTEIN 5.8 gm/dL (6.4-8.2)
[2020-03-15 08:00] VITALS: BP 110/66
[2020-03-15 12:00] VITALS: BP 116/70
[2020-03-15] MEDS ORDERED: AVPAK AZITHROM250 MG PO ×2 (15:19)
[2020-03-15 16:00] VITALS: BP 118/65
[2020-03-15] MEDS ORDERED: HUMALOG100 UNIT/1 SC (16:28)
[2020-03-15] MEDS ORDERED: LANTUS SOL100 UNIT/1 SC (16:28)
== END 2020-03-15 17:31 | disposition home or self-care (01) | DRG 637 ==
LOC: ED 16:26 → ICCU 18:11 → EDHOLD 18:11 → ICCU 18:16
PROVIDERS: Nurse Practitioner Family; Student in an Organized Health Care Education/Training Program; ADMIT Internal Medicine; ATTEND Internal Medicine
DX: E10.10 Type 1 diabetes mellitus with ketoacidosis without coma (principal); N17.0 Acute kidney failure with tubular necrosis; E87.1 Hypo-osmolality and hyponatremia; F32.9 Major depressive disorder, single episode, unspecified; E10.40 Type 1 diabetes mellitus with diabetic neuropathy, unspecified; F41.1 Generalized anxiety disorder; E86.0 Dehydration; E10.69 Type 1 diabetes mellitus with other specified complication; E83.39 Other disorders of phosphorus metabolism; E10.42 Type 1 diabetes mellitus with diabetic polyneuropathy; Z88.8 Allergy status to other drugs, medicaments and biological substances; Z91.040 Latex allergy status; W55.03XA Scratched by cat, initial encounter

== ENCOUNTER 2020-05-09 04:39 | Inpatient (IN) | payer MEDICARE, OTHER ==
[~2020-05-09] VITALS: Ht 155 cm; Wt 54.0 kg
[2020-05-09] VITALS (7 sets, daily range): BP systolic 111–137; BP diastolic 62–86
[~2020-05-09 04:39] MED LIST changes: +AVPAK AZITHROM250 MG PO
[2020-05-09] MEDS ORDERED: MINIPRESS2 M1 PO (04:43)
[2020-05-09] MEDS ORDERED: CYMBALTA60 MG PO (04:43)
[2020-05-09 05:33] LABS: ABG BASE EXCESS -13.9 mmol/L (-2.0-2.0); ARTERIAL BLOOD GAS PH 7.27 (7.35-7.45)
[2020-05-09 05:38] LABS: ALBUMIN 4.1 gm/dl (3.1-4.5); CREATININE 1.73 mg/dL (0.55-1.02); POTASSIUM 3.9 mmol/L (3.5-5.1); TOTAL PROTEIN 8.7 gm/dL (6.4-8.2)
[2020-05-09 06:01] LABS: HEMATOCRIT 46.1 % (37.0-47.0); MEAN CELL VOLUME 98.7 fl (81.0-99.0); MEAN CORPUSCULAR HGB 31.7 pg (27.0-31.0); MEAN CORPUSCULAR HGB CONC 32.1 g/dl (33.0-37.0); MEAN PLATELET VOLUME 10.2 fl (9.6-12.3); PLATELET COUNT AUTOMATED 330 10*3/uL (130-400); RED BLOOD COUNT 4.67 10*6/uL (4.10-5.10); RED CELL DISTRI WIDTH 12.5 % (0-14.5); WHITE BLOOD COUNT 27.2 10*3/uL (4.8-10.8)
--- NOTE | 2020-05-09 06:06 | NUR ---
PATIENT IN BED AWAKE AND ALERT NO DISTRESS NOTED. STATES FEELS BETTER AFTER MEDICATION GIVEN. RN WILL CONT TO MONITOR
[2020-05-09 06:28] LABS: BILIRUBIN Negative (Negative); BLOOD Trace-Lysed (Negative); CLARITY Clear (Clear); COLOR Yellow (Yellow); GLUCOSE 3+ (Negative); KETONE 3+ (Negative); LEUKO ESTERASE Negative (Negative); NITRITE Negative (Negative); SPECIFIC GRAVITY 1.025 (1.001-1.030); UROBILINOGEN 0.2 E.U./dl (0.0-1.0)
[2020-05-09 06:36] LABS: BACTERIA 2+; RBC 0-2 rbc/hpf (0-2)
[2020-05-09 07:07] LABS: PLATELET SUFFICIENCY NORMAL (NORMAL); TOTAL CELLS COUNTED 100 #CELLS
--- NOTE | 2020-05-09 07:28 | NUR ---
PT W/O ACUTE DISTRESS NOTED WITH [employer] INTACT AND CALL LIGHT WITHIN REACH,NO ADDITIONAL COMPLAINTS VOICED @ THIS TIME,WILL CONTINUE TO MONITOR.
--- NOTE | 2020-05-09 07:40 | NUR ---
PT C/O NAUSEA W/O EMESIS.
[2020-05-09 09:05] LABS: CREATININE 1.43 mg/dL (0.55-1.02); POTASSIUM 4.5 mmol/L (3.5-5.1)
[2020-05-09 11:02] LABS: URINE AMPHETAMINES < 1000 (1000ng/ml); URINE BARBITURATES < 200 (200ng/ml); URINE BENZODIAZEPINES < 200 (200ng/ml); URINE CANNABINOIDS (THC) > 50 (50ng/ml); URINE COCAINE < 300 (300ng/ml); URINE METHADONE < 300 (300ng/ml); URINE OPIATES < 300 (300ng/ml)
[2020-05-09 11:03] LABS: URINE PHENCYCLIDINE < 25 (25ng/ml)
--- NOTE | 2020-05-09 15:49 | NUR ---
INSULIN DRIP TURNED DOWN TO 2. PER DR. BAKER. SEEN PT IN ER.
--- NOTE | 2020-05-09 18:04 | NUR ---
PT REFUSED DINNER TRAY. PT REPORTS NAUSEA AND IT MADE HER SICK. PRN PHENERGAN WAS GIVEN.
--- NOTE | 2020-05-09 19:15 | NUR ---
PT VOMITING AFTER MEDS GIVEN, AND REPORTING PAIN. CALLED DR. BAKER. HE ORDERED PAIN MEDS.
[2020-05-09 20:09] LABS: BUN 13 mg/dl (7-24); CHLORIDE 107 mmol/L (98-107); CREATININE 1.27 mg/dL (0.55-1.02); POTASSIUM 3.4 mmol/L (3.5-5.1); SODIUM 139 mmol/L (136-145)
--- NOTE | 2020-05-09 23:32 | NUR ---
PT BGM 109. PT STATES THAT SHE TOOK 10 UNITS OF HER OWN RAPID ACTING INSULING ABOUT AN HOUR AGO. PATIENT EDUCATED ON THE RISKS OF RAPIDLY LOWERING BLOOD GLUCOSE IN DKA. DR. WHELAN NOTIFIED. INSULIN DRIP DECREASED TO 1U/H.
[2020-05-09 23:59] LABS: BUN 11 mg/dl (7-24); CHLORIDE 112 mmol/L (98-107); CREATININE 1.16 mg/dL (0.55-1.02); POTASSIUM 3.5 mmol/L (3.5-5.1); SODIUM 144 mmol/L (136-145)
[2020-05-10 01:29] VITALS: BP 126/68
[2020-05-10 02:52] LABS: BUN 10 mg/dl (7-24); CHLORIDE 111 mmol/L (98-107); CREATININE 1.02 mg/dL (0.55-1.02); POTASSIUM 3.8 mmol/L (3.5-5.1); SODIUM 142 mmol/L (136-145)
--- NOTE | 2020-05-10 03:09 | NUR ---
INSULIN DRIP INCREASED TO 3U/H. DR. WHELAN AWARE.
--- NOTE | 2020-05-10 04:23 | NUR ---
BGM WAS 236 AND INSULIN DRIP WAS INCREASED TO 3U/H. DR. CLEOPATRA CRABTREE.
[2020-05-10 04:50] VITALS: BP 122/68
[2020-05-10 05:55] LABS: BUN 8 mg/dl (7-24); CHLORIDE 109 mmol/L (98-107); CREATININE 1.11 mg/dL (0.55-1.02); POTASSIUM 3.4 mmol/L (3.5-5.1); SODIUM 139 mmol/L (136-145)
[2020-05-10 06:08] LABS: BASO % 0.2 % (0.0-1.0); EOS % 0.1 % (1.0-4.0); HEMATOCRIT 33.8 % (37.0-47.0); LYMPH # 1.6 10*3/uL (1.3-4.4); LYMPH % 9.3 % (27.0-41.0); MEAN CELL VOLUME 97.4 fl (81.0-99.0); MEAN CORPUSCULAR HGB 31.7 pg (27.0-31.0); MEAN CORPUSCULAR HGB CONC 32.5 g/dl (33.0-37.0); MEAN PLATELET VOLUME 10.3 fl (9.6-12.3); MONO % 5.8 % (3.0-9.0); NEUT # 14.5 10*3/uL (2.3-7.9); NEUT % 84.3 % (47.0-73.0); PLATELET COUNT AUTOMATED 236 10*3/uL (130-400); RED BLOOD COUNT 3.47 10*6/uL (4.10-5.10); RED CELL DISTRI WIDTH 12.6 % (0-14.5); WHITE BLOOD COUNT 17.2 10*3/uL (4.8-10.8)
--- NOTE | 2020-05-10 08:00 | NUR ---
RESIDENT PHONE CONTACTED AT THIS TIME ABOUT MEDICATION DUPLICATIONS. MD REQUESTS THAT ONE DOSE OF MEDICATION BE DC'D AT THIS TIME. THIS RN PUT IN DC ORDER. WILL CONTINUE TO MONITOR.
[2020-05-10 08:35] LABS: VITAMIN D, 25-HYDROXY 7.2 ng/mL (30-100)
[2020-05-10 09:45] VITALS: BP 122/68
[2020-05-10 09:45] LABS: BUN 7 mg/dl (7-24); CHLORIDE 109 mmol/L (98-107); CREATININE 1.02 mg/dL (0.55-1.02); SODIUM 142 mmol/L (136-145)
--- NOTE | 2020-05-10 10:23 | NUR ---
UNABLE TO INITIATE NEWLY MEDICATIONS AT THIS TIME D/T AMOUNT OF MEDICATIONS CURRENTLY RUNNING AT THIS TIME.
[2020-05-10 11:37] VITALS: BP 143/89
[2020-05-10 13:29] LABS: BUN 5 mg/dl (7-24); CHLORIDE 105 mmol/L (98-107); CREATININE 1.09 mg/dL (0.55-1.02); POTASSIUM 3.7 mmol/L (3.5-5.1); SODIUM 141 mmol/L (136-145)
--- NOTE | 2020-05-10 13:30 | NUR ---
PT REQUESTING MEDICATION FOR PAIN OF 10/18. THIS RN TO GIVE NORCO AT THIS TIME. WILL CONTINUE TO MONITOR.
[2020-05-10 15:38] LABS: BUN 5 mg/dl (7-24); CHLORIDE 106 mmol/L (98-107); CREATININE 0.97 mg/dL (0.55-1.02); POTASSIUM 3.8 mmol/L (3.5-5.1); SODIUM 142 mmol/L (136-145)
--- NOTE | 2020-05-10 18:47 | NUR ---
PT REQUESTING MD AT THIS TIME. STATES SHE "DOES NOT WANT TO PUKE ANY MORE". THIS RN WILL CONTACT RESIDENTS AT THIS TIME.
[2020-05-10 18:54] LABS: BUN 4 mg/dl (7-24); CHLORIDE 105 mmol/L (98-107); CREATININE 1.01 mg/dL (0.55-1.02); POTASSIUM 3.6 mmol/L (3.5-5.1); SODIUM 140 mmol/L (136-145)
[2020-05-10 20:00] VITALS: BP 137/70
--- NOTE | 2020-05-10 21:43 | NUR ---
THE PATIENT C/O NAUSEA. 12.5 IV PHENERGAN GIVEN PER EMAR. THE PT DID REFUSE THE PO POTASSIUM. THE RESIDENT NOTIFIED
--- NOTE | 2020-05-10 22:10 | NUR ---
THE IV IN THE RIGHT FOREARM INFILTRATED. IT WAS DISCONTINUED
[2020-05-10] MEDS ORDERED: SEROQUEL300 MG PO (23:09)
[2020-05-10] MEDS ORDERED: CYMBALTA60 MG PO (23:10)
[2020-05-10] MEDS ORDERED: MINIPRESS2 M2 PO (23:10)
--- NOTE | 2020-05-11 04:12 | NUR ---
THE PATIENT IS SIGNING OUT AMA THE RESIDENT WAS NOTIFIED.
--- NOTE | 2020-05-11 04:14 | NUR ---
THE PATIENT IS NOT SURE NOW IF SHE WANTS TO SIGN OUT AMA. SHE IS GOING TO TALK WITH HER MOM. I WILL LET THE RESIDENT WHEN SHE DECIDES
[2020-05-11 05:45] LABS: BUN 6 mg/dl (7-24); CHLORIDE 106 mmol/L (98-107); CREATININE 0.94 mg/dL (0.55-1.02); POTASSIUM 3.4 mmol/L (3.5-5.1); SODIUM 142 mmol/L (136-145)
[2020-05-11 06:15] LABS: BASO % 0.1 % (0.0-1.0); EOS % 0.1 % (1.0-4.0); LYMPH # 1.5 10*3/uL (1.3-4.4); LYMPH % 10.2 % (27.0-41.0); MEAN CELL VOLUME 95.4 fl (81.0-99.0); MEAN CORPUSCULAR HGB 31.6 pg (27.0-31.0); MEAN CORPUSCULAR HGB CONC 33.1 g/dl (33.0-37.0); MEAN PLATELET VOLUME 10.5 fl (9.6-12.3); MONO # 1.2 10*3/uL (0.1-1.0); MONO % 8.5 % (3.0-9.0); NEUT # 11.4 10*3/uL (2.3-7.9); NEUT % 80.8 % (47.0-73.0); PLATELET COUNT AUTOMATED 211 10*3/uL (130-400); RED BLOOD COUNT 3.67 10*6/uL (4.10-5.10); RED CELL DISTRI WIDTH 12.3 % (0-14.5); WHITE BLOOD COUNT 14.2 10*3/uL (4.8-10.8)
[2020-05-11 08:11] VITALS: BP 128/70
[2020-05-11 10:47] LABS: BUN 7 mg/dl (7-24); CHLORIDE 106 mmol/L (98-107); CREATININE 0.99 mg/dL (0.55-1.02); POTASSIUM 3.3 mmol/L (3.5-5.1); SODIUM 141 mmol/L (136-145)
[2020-05-11] MEDS ORDERED: CIPRO500 MG PO (11:50)
[2020-05-11] MEDS ORDERED: FLAGYL500 MG PO (11:50)
== END 2020-05-11 12:32 | disposition home or self-care (01) | DRG 637 ==
LOC: ED 04:39 → EDHOLD 06:10 → ICCU 05-11 09:12 → EDHOLD 05-11 09:12 → ICCU 05-11 09:12 → EDHOLD 05-11 12:32
PROVIDERS: Emergency Medicine; Hospitalist; Internal Medicine; Student in an Organized Health Care Education/Training Program; ADMIT Student in an Organized Health Care Education/Training Program; ATTEND Student in an Organized Health Care Education/Training Program
DX: E10.10 Type 1 diabetes mellitus with ketoacidosis without coma (principal); N17.0 Acute kidney failure with tubular necrosis; R65.11 Systemic inflammatory response syndrome (SIRS) of non-infectious origin with acute organ dysfunction; E86.0 Dehydration; F31.9 Bipolar disorder, unspecified; E10.40 Type 1 diabetes mellitus with diabetic neuropathy, unspecified; F41.1 Generalized anxiety disorder; E10.69 Type 1 diabetes mellitus with other specified complication; E83.51 Hypocalcemia; F12.10 Cannabis abuse, uncomplicated; D72.829 Elevated white blood cell count, unspecified; E87.8 Other disorders of electrolyte and fluid balance, not elsewhere classified; E87.6 Hypokalemia; D64.9 Anemia, unspecified; E83.39 Other disorders of phosphorus metabolism; Z88.8 Allergy status to other drugs, medicaments and biological substances; Z91.040 Latex allergy status; Z81.3 Family history of other psychoactive substance abuse and dependence; Z79.899 Other long term (current) drug therapy; K52.9 Noninfective gastroenteritis and colitis, unspecified

== ENCOUNTER 2020-08-14 17:23 | Inpatient (IN) | payer MEDICARE, OTHER ==
[~2020-08-14] VITALS: Ht 154.9 cm; Wt 59.0 kg
[~2020-08-14 17:23] MED LIST changes: +CIPRO500 MG PO; +FLAGYL500 MG PO; +MINIPRESS2 M1 PO; +MINIPRESS2 M2 PO
[2020-08-14 17:26] VITALS: BP 111/74
[2020-08-14 18:18] LABS: HEMATOCRIT 41.1 % (37.0-47.0); MEAN CELL VOLUME 97.6 fl (81.0-99.0); MEAN CORPUSCULAR HGB 31.8 pg (27.0-31.0); MEAN CORPUSCULAR HGB CONC 32.6 g/dl (33.0-37.0); MEAN PLATELET VOLUME 9.7 fl (9.6-12.3); PLATELET COUNT AUTOMATED 310 10*3/uL (130-400); RED BLOOD COUNT 4.21 10*6/uL (4.10-5.10); RED CELL DISTRI WIDTH 12.6 % (0-14.5)
[2020-08-14 18:37] LABS: BASOPHILS 1 % (0-1); PLATELET SUFFICIENCY NORMAL (NORMAL); TOTAL CELLS COUNTED 100 #CELLS
[2020-08-14 18:38] LABS: BURR CELLS FEW
[2020-08-14 18:48] LABS: ALBUMIN 3.9 gm/dl (3.1-4.5); ALKALINE PHOSPHATASE 102 U/L (45-117); BUN 18 mg/dl (7-24); CHLORIDE 103 mmol/L (98-107); CREATININE 1.38 mg/dL (0.55-1.02); POTASSIUM 3.8 mmol/L (3.5-5.1); SGOT/AST 15 IU/L (3-35); SGPT/ALT 26 U/L (12-78); SODIUM 137 mmol/L (136-145); TOTAL PROTEIN 7.8 gm/dL (6.4-8.2)
[2020-08-14 18:49] LABS: B-hCG (QUALITATIVE) NEGATIVE (NEGATIVE)
[2020-08-14 18:56] LABS: TROPONIN I < 0.015 ng/ml (<0.045)
[2020-08-14 20:27] VITALS: BP 101/54
[2020-08-14 20:31] LABS: BUN 17 mg/dl (7-24); CHLORIDE 110 mmol/L (98-107); CREATININE 1.17 mg/dL (0.55-1.02); POTASSIUM 4.5 mmol/L (3.5-5.1); SODIUM 139 mmol/L (136-145)
[2020-08-14 20:45] VITALS: BP 105/62
[2020-08-14 22:16] LABS: BUN 14 mg/dl (7-24); CHLORIDE 114 mmol/L (98-107); CREATININE 1.04 mg/dL (0.55-1.02); SODIUM 143 mmol/L (136-145)
[2020-08-14 22:19] LABS: POTASSIUM 3.3 mmol/L (3.5-5.1)
[2020-08-15] VITALS: BP 93/53
[2020-08-15 00:03] LABS: BILIRUBIN Negative (Negative); BLOOD Negative (Negative); CLARITY Clear (Clear); COLOR Yellow (Yellow); GLUCOSE 3+ (Negative); KETONE 4+ (Negative); LEUKO ESTERASE Negative (Negative); NITRITE Negative (Negative); SPECIFIC GRAVITY >= 1.030 (1.001-1.030); UROBILINOGEN 0.2 E.U./dl (0.0-1.0)
[2020-08-15 00:20] LABS: WBC 0-2 wbc/hpf (0-5); YEAST TRACE
[2020-08-15 00:21] LABS: RBC 0-2 rbc/hpf (0-2)
[2020-08-15 00:48] LABS: BUN 14 mg/dl (7-24); CHLORIDE 113 mmol/L (98-107); CREATININE 0.94 mg/dL (0.55-1.02); SODIUM 142 mmol/L (136-145)
[2020-08-15 02:22] LABS: BUN 14 mg/dl (7-24); CHLORIDE 113 mmol/L (98-107); CREATININE 1.01 mg/dL (0.55-1.02); POTASSIUM 4.3 mmol/L (3.5-5.1); SODIUM 141 mmol/L (136-145)
[2020-08-15 04:00] VITALS: BP 92/56
[2020-08-15 04:09] LABS: BUN 13 mg/dl (7-24); CHLORIDE 111 mmol/L (98-107); CREATININE 1.08 mg/dL (0.55-1.02); POTASSIUM 4.6 mmol/L (3.5-5.1); SODIUM 140 mmol/L (136-145)
[2020-08-15 06:15] LABS: BASO % 0.4 % (0.0-1.0); EOS # 0.3 10*3/uL (0.0-0.4); EOS % 2.4 % (1.0-4.0); HEMATOCRIT 34.3 % (37.0-47.0); LYMPH # 2.8 10*3/uL (1.3-4.4); LYMPH % 27.8 % (27.0-41.0); MEAN CORPUSCULAR HGB 31.6 pg (27.0-31.0); MEAN CORPUSCULAR HGB CONC 33.2 g/dl (33.0-37.0); MEAN PLATELET VOLUME 9.7 fl (9.6-12.3); MONO # 0.6 10*3/uL (0.1-1.0); NEUT # 6.5 10*3/uL (2.3-7.9); NEUT % 63.1 % (47.0-73.0); PLATELET COUNT AUTOMATED 291 10*3/uL (130-400); RED BLOOD COUNT 3.61 10*6/uL (4.10-5.10); RED CELL DISTRI WIDTH 12.6 % (0-14.5); WHITE BLOOD COUNT 10.2 10*3/uL (4.8-10.8)
[2020-08-15 06:28] LABS: ALBUMIN 2.8 gm/dl (3.1-4.5); ALKALINE PHOSPHATASE 74 U/L (45-117); BUN 14 mg/dl (7-24); CHLORIDE 109 mmol/L (98-107); CREATININE 1.08 mg/dL (0.55-1.02); POTASSIUM 4.6 mmol/L (3.5-5.1); SGOT/AST 12 IU/L (3-35); SGPT/ALT 19 U/L (12-78); SODIUM 137 mmol/L (136-145); TOTAL PROTEIN 5.6 gm/dL (6.4-8.2)
[2020-08-15 06:34] LABS: FREE T4 0.86 ng/dl (0.76-1.46); THYROID STIM HORMONE (HS) 0.853 uIU/ml (0.358-4.75)
[2020-08-15 08:00] VITALS: BP 92/50
[2020-08-15 12:00] VITALS: BP 109/71
[2020-08-15 14:10] VITALS: BP 91/74
== END 2020-08-15 16:03 | disposition left against medical advice (07) | DRG 637 ==
LOC: ED 17:23 → EDHOLD 19:34 → ICCU 19:34 → 5E 08-15 13:49
PROVIDERS: Emergency Medicine; Internal Medicine; ADMIT Family Medicine; ATTEND Family Medicine
DX: E10.10 Type 1 diabetes mellitus with ketoacidosis without coma (principal); N17.0 Acute kidney failure with tubular necrosis; R65.10 Systemic inflammatory response syndrome (SIRS) of non-infectious origin without acute organ dysfunction; E10.42 Type 1 diabetes mellitus with diabetic polyneuropathy; F31.9 Bipolar disorder, unspecified; F41.1 Generalized anxiety disorder; F43.10 Post-traumatic stress disorder, unspecified; Z53.29 Procedure and treatment not carried out because of patient's decision for other reasons; Z88.8 Allergy status to other drugs, medicaments and biological substances; Z91.040 Latex allergy status; Z84.89 Family history of other specified conditions; Z79.899 Other long term (current) drug therapy

== ENCOUNTER 2020-09-22 01:27 | Inpatient (IN) | payer MEDICARE, OTHER ==
[~2020-09-22] VITALS: Ht 154.9 cm; Wt 54.4 kg
[2020-09-22 01:30] VITALS: BP 116/80
[2020-09-22 02:54] LABS: BASO % 0.3 % (0.0-1.0); EOS % 0.3 % (1.0-4.0); HEMATOCRIT 37.6 % (37.0-47.0); LYMPH # 1.8 10*3/uL (1.3-4.4); LYMPH % 25.2 % (27.0-41.0); MEAN CORPUSCULAR HGB CONC 35.1 g/dl (33.0-37.0); MEAN PLATELET VOLUME 9.1 fl (9.6-12.3); MONO # 0.5 10*3/uL (0.1-1.0); MONO % 6.4 % (3.0-9.0); NEUT % 67.7 % (47.0-73.0); PLATELET COUNT AUTOMATED 317 10*3/uL (130-400); RED BLOOD COUNT 4.13 10*6/uL (4.10-5.10); RED CELL DISTRI WIDTH 12.9 % (0-14.5); WHITE BLOOD COUNT 7.3 10*3/uL (4.8-10.8)
[2020-09-22 03:00] VITALS: BP 96/54
[2020-09-22 03:17] LABS: ALBUMIN 3.1 gm/dl (3.1-4.5); CREATININE 1.4 mg/dL (0.55-1.02); POTASSIUM 3.8 mmol/L (3.5-5.1); TOTAL PROTEIN 6.9 gm/dL (6.4-8.2)
[2020-09-22 04:16] VITALS: BP 100/61
[2020-09-22 05:10] VITALS: BP 99/63
== END 2020-09-22 06:16 | disposition left against medical advice (07) | DRG 638 ==
LOC: ED 01:27 → EDHOLD 05:09
PROVIDERS: Emergency Medicine; ADMIT Family Medicine; ATTEND Family Medicine
DX: E10.649 Type 1 diabetes mellitus with hypoglycemia without coma (principal); R65.10 Systemic inflammatory response syndrome (SIRS) of non-infectious origin without acute organ dysfunction; R10.9 Unspecified abdominal pain; N17.0 Acute kidney failure with tubular necrosis; E86.0 Dehydration; F31.9 Bipolar disorder, unspecified; E10.40 Type 1 diabetes mellitus with diabetic neuropathy, unspecified; F41.1 Generalized anxiety disorder; F43.10 Post-traumatic stress disorder, unspecified; Z53.29 Procedure and treatment not carried out because of patient's decision for other reasons; Z88.8 Allergy status to other drugs, medicaments and biological substances; Z91.040 Latex allergy status; Z84.89 Family history of other specified conditions; Z79.899 Other long term (current) drug therapy

== ENCOUNTER 2020-10-13 10:39 | Inpatient (IN) | payer MEDICARE, OTHER ==
[~2020-10-13] VITALS: Ht 154.9 cm; Wt 56.3 kg
[2020-10-13 10:41] VITALS: BP 111/81
[2020-10-13 10:56] LABS: BASO % 0.3 % (0.0-1.0); EOS % 0.2 % (1.0-4.0); HEMATOCRIT 46.5 % (37.0-47.0); LYMPH # 1.9 10*3/uL (1.3-4.4); LYMPH % 14.1 % (27.0-41.0); MEAN CELL VOLUME 95.5 fl (81.0-99.0); MEAN CORPUSCULAR HGB 32.9 pg (27.0-31.0); MEAN CORPUSCULAR HGB CONC 34.4 g/dl (33.0-37.0); MEAN PLATELET VOLUME 9.2 fl (9.6-12.3); MONO # 0.6 10*3/uL (0.1-1.0); MONO % 4.8 % (3.0-9.0); NEUT # 10.6 10*3/uL (2.3-7.9); NEUT % 80.3 % (47.0-73.0); PLATELET COUNT AUTOMATED 447 10*3/uL (130-400); RED BLOOD COUNT 4.87 10*6/uL (4.10-5.10); RED CELL DISTRI WIDTH 14.4 % (0-14.5); WHITE BLOOD COUNT 13.2 10*3/uL (4.8-10.8)
[2020-10-13 11:10] LABS: CREATININE 2.63 mg/dL (0.55-1.02); POTASSIUM 3.6 mmol/L (3.5-5.1); TOTAL PROTEIN 8.7 gm/dL (6.4-8.2)
[2020-10-13 13:00] VITALS: BP 102/64
[2020-10-13 13:19] VITALS: BP 114/65
[2020-10-13 16:37] VITALS: BP 104/65
[2020-10-13 19:00] VITALS: BP 128/79
[2020-10-13 19:40] LABS: BILIRUBIN Negative (Negative); BLOOD Trace-Lysed (Negative); CLARITY Cloudy (Clear); COLOR Dark Yellow (Yellow); GLUCOSE 2+ (Negative); KETONE 1+ (Negative); LEUKO ESTERASE 1+ (Negative); NITRITE Negative (Negative); SPECIFIC GRAVITY 1.025 (1.001-1.030)
[2020-10-13 19:47] LABS: BACTERIA 2+; CALCIUM OXALATE CRYSTALS 4+; EPITHELIAL CELLS TNTC; MUCOUS TRACE; RBC 0-2 rbc/hpf (0-2)
[2020-10-13] MEDS ORDERED: ATIVAN0.5 MG PO (20:20)
[2020-10-13 20:59] VITALS: BP 140/97
[2020-10-14] VITALS (7 sets, daily range): BP systolic 90–122; BP diastolic 50–84
[2020-10-14 05:17] LABS: ALBUMIN 2.6 gm/dl (3.1-4.5); CREATININE 1.43 mg/dL (0.55-1.02); POTASSIUM 4.3 mmol/L (3.5-5.1); TOTAL PROTEIN 5.8 gm/dL (6.4-8.2)
[2020-10-14 05:23] LABS: THYROID STIM HORMONE (HS) 2.12 uIU/ml (0.358-4.75)
[2020-10-14 06:10] LABS: BASO % 0.4 % (0.0-1.0); EOS # 0.2 10*3/uL (0.0-0.4); EOS % 2.1 % (1.0-4.0); HEMATOCRIT 35.7 % (37.0-47.0); LYMPH # 2.5 10*3/uL (1.3-4.4); LYMPH % 34.7 % (27.0-41.0); MEAN CELL VOLUME 97.8 fl (81.0-99.0); MEAN CORPUSCULAR HGB 32.3 pg (27.0-31.0); MEAN CORPUSCULAR HGB CONC 33.1 g/dl (33.0-37.0); MONO # 0.4 10*3/uL (0.1-1.0); NEUT # 4.1 10*3/uL (2.3-7.9); NEUT % 56.7 % (47.0-73.0); PLATELET COUNT AUTOMATED 320 10*3/uL (130-400); RED BLOOD COUNT 3.65 10*6/uL (4.10-5.10); RED CELL DISTRI WIDTH 14.4 % (0-14.5); WHITE BLOOD COUNT 7.2 10*3/uL (4.8-10.8)
[2020-10-14 07:49] LABS: VITAMIN D, 25-HYDROXY 12.6 ng/mL (30-100)
[2020-10-15] VITALS: BP 106/65
[2020-10-15 06:37] LABS: BUN 20 mg/dl (7-24); CHLORIDE 111 mmol/L (98-107); CREATININE 1.03 mg/dL (0.55-1.02); POTASSIUM 4.4 mmol/L (3.5-5.1); SODIUM 143 mmol/L (136-145)
[2020-10-15 08:00] VITALS: BP 117/79
[2020-10-15] MEDS ORDERED: ATORVASTATIN CA40 M1 PO (08:52)
[2020-10-15] MEDS ORDERED: NATURE'S BLEND F1 MG PO (08:52)
[2020-10-15] MEDS ORDERED: VITAMIN D350 MC2 PO (08:52)
[2020-10-15] MEDS ORDERED: PHARMASSURE V500 MCG PO (08:52)
== END 2020-10-15 13:00 | disposition home or self-care (01) | DRG 637 ==
LOC: ED 10:39 → 4E 11:52 → EDHOLD 11:52 → 4E 10-14 12:53
PROVIDERS: Student in an Organized Health Care Education/Training Program; ADMIT Family Medicine; ATTEND Family Medicine
DX: E10.65 Type 1 diabetes mellitus with hyperglycemia (principal); N17.0 Acute kidney failure with tubular necrosis; R65.10 Systemic inflammatory response syndrome (SIRS) of non-infectious origin without acute organ dysfunction; F31.60 Bipolar disorder, current episode mixed, unspecified; E86.0 Dehydration; E28.2 Polycystic ovarian syndrome; F41.1 Generalized anxiety disorder; F12.10 Cannabis abuse, uncomplicated; E10.40 Type 1 diabetes mellitus with diabetic neuropathy, unspecified; D72.829 Elevated white blood cell count, unspecified; R00.0 Tachycardia, unspecified; Z79.4 Long term (current) use of insulin; Z79.899 Other long term (current) drug therapy; Z91.040 Latex allergy status; Z88.8 Allergy status to other drugs, medicaments and biological substances

== ENCOUNTER 2020-12-14 10:32 | Inpatient (IN) | payer MEDICARE, OTHER ==
[~2020-12-14] VITALS: Ht 154.9 cm; Wt 51.5 kg
[2020-12-14 10:32] VITALS: BP 125/58
[~2020-12-14 10:32] MED LIST changes: +ATIVAN0.5 MG PO; +ATORVASTATIN CA40 M1 PO; +PHARMASSURE V500 MCG PO; +VITAMIN D350 MC2 PO
[2020-12-14 11:17] LABS: HEMATOCRIT 42.3 % (37.0-47.0); MEAN CORPUSCULAR HGB 34.2 pg (27.0-31.0); MEAN CORPUSCULAR HGB CONC 32.6 g/dl (33.0-37.0); MEAN PLATELET VOLUME 9.7 fl (9.6-12.3); PLATELET COUNT AUTOMATED 416 10*3/uL (130-400); RED BLOOD COUNT 4.03 10*6/uL (4.10-5.10); RED CELL DISTRI WIDTH 12.3 % (0-14.5); WHITE BLOOD COUNT 26.5 10*3/uL (4.8-10.8)
[2020-12-14 11:35] LABS: ALBUMIN 3.8 gm/dl (3.1-4.5); ALKALINE PHOSPHATASE 117 U/L (45-117); BUN 25 mg/dl (7-24); CHLORIDE 98 mmol/L (98-107); CREATININE 1.58 mg/dL (0.55-1.02); LIPASE 34 U/L (73-393); PLATELET SUFFICIENCY HIGH (NORMAL); POTASSIUM 5.5 mmol/L (3.5-5.1); SGOT/AST 15 IU/L (3-35); SGPT/ALT 33 U/L (12-78); SODIUM 134 mmol/L (136-145); TOTAL CELLS COUNTED 100 #CELLS; TOTAL PROTEIN 7.6 gm/dL (6.4-8.2)
[2020-12-14 11:38] LABS: BETA-HCG, QUANT < 1.0 mIU/mL (1-3); TROPONIN I < 0.015 ng/ml (<0.045)
[2020-12-14 13:54] LABS: CREATININE 1.64 mg/dL (0.55-1.02); POTASSIUM 4.7 mmol/L (3.5-5.1)
[2020-12-14 14:35] LABS: BILIRUBIN Negative (Negative); BLOOD Negative (Negative); CLARITY Clear (Clear); COLOR Yellow (Yellow); GLUCOSE 3+ (Negative); KETONE 4+ (Negative); LEUKO ESTERASE Negative (Negative); NITRITE Negative (Negative); SPECIFIC GRAVITY 1.025 (1.001-1.030); UROBILINOGEN 0.2 E.U./dl (0.0-1.0)
[2020-12-14 14:40] VITALS: BP 120/58
[2020-12-14 14:48] LABS: BACTERIA 3+; EPITHELIAL CELLS 16-20; MUCOUS 1+
[2020-12-14 16:00] VITALS: BP 120/64
[2020-12-14 18:35] LABS: CREATININE 1.3 mg/dL (0.55-1.02); POTASSIUM 4.6 mmol/L (3.5-5.1)
[2020-12-14 20:00] VITALS: BP 124/72
[2020-12-14 21:59] LABS: HEMATOCRIT 32.1 % (37.0-47.0); MEAN CELL VOLUME 103.2 fl (81.0-99.0); MEAN CORPUSCULAR HGB 33.8 pg (27.0-31.0); MEAN CORPUSCULAR HGB CONC 32.7 g/dl (33.0-37.0); MEAN PLATELET VOLUME 8.9 fl (9.6-12.3); PLATELET COUNT AUTOMATED 306 10*3/uL (130-400); RED BLOOD COUNT 3.11 10*6/uL (4.10-5.10); RED CELL DISTRI WIDTH 12.4 % (0-14.5); WHITE BLOOD COUNT 21.2 10*3/uL (4.8-10.8)
[2020-12-14 22:12] LABS: BUN 17 mg/dl (7-24); CHLORIDE 114 mmol/L (98-107); CREATININE 1.25 mg/dL (0.55-1.02); POTASSIUM 3.9 mmol/L (3.5-5.1); SODIUM 142 mmol/L (136-145)
[2020-12-14 22:53] LABS: TOTAL CELLS COUNTED 100 #CELLS
[2020-12-14 22:54] LABS: BURR CELLS FEW; PLATELET SUFFICIENCY NORMAL (NORMAL)
[2020-12-15] VITALS: BP 113/60
[2020-12-15 02:22] LABS: CREATININE 1.28 mg/dL (0.55-1.02)
[2020-12-15 02:28] LABS: POTASSIUM 4.2 mmol/L (3.5-5.1)
[2020-12-15 04:00] VITALS: BP 115/67
[2020-12-15 06:00] LABS: BASO # 0.1 10*3/uL (0.0-0.1); BASO % 0.3 % (0.0-1.0); EOS # 0.1 10*3/uL (0.0-0.4); EOS % 0.3 % (1.0-4.0); HEMATOCRIT 33.7 % (37.0-47.0); LYMPH # 2.4 10*3/uL (1.3-4.4); LYMPH % 13.3 % (27.0-41.0); MEAN CELL VOLUME 101.8 fl (81.0-99.0); MEAN CORPUSCULAR HGB 33.8 pg (27.0-31.0); MEAN CORPUSCULAR HGB CONC 33.2 g/dl (33.0-37.0); MEAN PLATELET VOLUME 9.5 fl (9.6-12.3); MONO # 1.5 10*3/uL (0.1-1.0); MONO % 8.2 % (3.0-9.0); NEUT # 13.9 10*3/uL (2.3-7.9); NEUT % 76.3 % (47.0-73.0); PLATELET COUNT AUTOMATED 333 10*3/uL (130-400); RED BLOOD COUNT 3.31 10*6/uL (4.10-5.10); RED CELL DISTRI WIDTH 12.2 % (0-14.5); WHITE BLOOD COUNT 18.2 10*3/uL (4.8-10.8)
[2020-12-15 06:15] LABS: ALBUMIN 3.4 gm/dl (3.1-4.5); BUN 13 mg/dl (7-24); CHLORIDE 107 mmol/L (98-107); CREATININE 1.16 mg/dL (0.55-1.02); POTASSIUM 3.5 mmol/L (3.5-5.1); SGOT/AST 9 IU/L (3-35); SGPT/ALT 25 U/L (12-78); SODIUM 138 mmol/L (136-145); TOTAL PROTEIN 6.2 gm/dL (6.4-8.2)
[2020-12-15 06:20] LABS: ALKALINE PHOSPHATASE 94 U/L (45-117)
[2020-12-15 08:00] VITALS: BP 99/51
[2020-12-15 09:50] LABS: BUN 12 mg/dl (7-24); CHLORIDE 111 mmol/L (98-107); POTASSIUM 3.5 mmol/L (3.5-5.1); SODIUM 140 mmol/L (136-145)
[2020-12-15 12:00] VITALS: BP 97/53
[2020-12-15 14:26] LABS: BUN 10 mg/dl (7-24); CHLORIDE 110 mmol/L (98-107); CREATININE 1.04 mg/dL (0.55-1.02); POTASSIUM 3.9 mmol/L (3.5-5.1); SODIUM 139 mmol/L (136-145)
[2020-12-15 15:38] LABS: CLARITY CLEAR; COLOR COLORLESS
[2020-12-15 15:53] LABS: CSF GLUCOSE 142 mg/dL (40-70); CSF TOTAL PROTEIN 49.5 mg/dL (15-45)
[2020-12-15 15:57] LABS: CSF RBC 1000 /uL; CSF WBC 3 /uL
[2020-12-15 15:59] VITALS: BP 136/73
[2020-12-15 16:43] LABS: CSF LYMPHOCYTES 69 % (40-80); CSF MONOCYTES 31 % (15-45)
[2020-12-15 18:27] LABS: BUN 8 mg/dl (7-24); CHLORIDE 110 mmol/L (98-107); CREATININE 1.04 mg/dL (0.55-1.02); POTASSIUM 3.9 mmol/L (3.5-5.1); SODIUM 140 mmol/L (136-145)
[2020-12-15 20:00] VITALS: BP 131/80
[2020-12-16] VITALS: BP 134/83
== END 2020-12-16 03:36 | disposition short-term general hospital (02) | DRG 64 ==
LOC: ED 10:32 → EDHOLD 12:19 → ICCU 14:25
PROVIDERS: Emergency Medicine; Internal Medicine; ADMIT Internal Medicine; ATTEND Internal Medicine
PROC: 009U3ZX Drainage of Spinal Canal, Percutaneous Approach, Diagnostic (ICD-10-PCS; principal; 2020-12-15)
DX: I60.9 Nontraumatic subarachnoid hemorrhage, unspecified (principal); E10.10 Type 1 diabetes mellitus with ketoacidosis without coma; N17.0 Acute kidney failure with tubular necrosis; R65.10 Systemic inflammatory response syndrome (SIRS) of non-infectious origin without acute organ dysfunction; E87.1 Hypo-osmolality and hyponatremia; E86.0 Dehydration; D47.3 Essential (hemorrhagic) thrombocythemia; E87.5 Hyperkalemia; F31.9 Bipolar disorder, unspecified; E10.42 Type 1 diabetes mellitus with diabetic polyneuropathy; E10.22 Type 1 diabetes mellitus with diabetic chronic kidney disease; N18.9 Chronic kidney disease, unspecified; E28.2 Polycystic ovarian syndrome; F41.1 Generalized anxiety disorder; R51.9 Headache, unspecified; F43.10 Post-traumatic stress disorder, unspecified; Z88.8 Allergy status to other drugs, medicaments and biological substances; Z91.040 Latex allergy status; Z84.89 Family history of other specified conditions; Z79.899 Other long term (current) drug therapy

== ENCOUNTER 2020-12-26 11:44 | Inpatient (IN) | payer MEDICARE, OTHER ==
[~2020-12-26] VITALS: Ht 154.9 cm; Wt 56.3 kg
[2020-12-26 11:46] VITALS: BP 137/94
[2020-12-26 12:31] VITALS: BP 136/85
[2020-12-26 12:42] LABS: BASO % 0.3 % (0.0-1.0); EOS % 0.3 % (1.0-4.0); HEMATOCRIT 35.6 % (37.0-47.0); LYMPH # 1.1 10*3/uL (1.3-4.4); LYMPH % 12.5 % (27.0-41.0); MEAN CELL VOLUME 99.2 fl (81.0-99.0); MEAN CORPUSCULAR HGB 33.7 pg (27.0-31.0); MEAN PLATELET VOLUME 9.2 fl (9.6-12.3); MONO # 0.4 10*3/uL (0.1-1.0); MONO % 4.2 % (3.0-9.0); NEUT # 7.1 10*3/uL (2.3-7.9); NEUT % 82.4 % (47.0-73.0); PLATELET COUNT AUTOMATED 297 10*3/uL (130-400); RED BLOOD COUNT 3.59 10*6/uL (4.10-5.10); WHITE BLOOD COUNT 8.6 10*3/uL (4.8-10.8)
[2020-12-26 12:57] LABS: ALBUMIN 3.6 gm/dl (3.1-4.5); ALKALINE PHOSPHATASE 92 U/L (45-117); BUN 17 mg/dl (7-24); CHLORIDE 101 mmol/L (98-107); CREATININE 1.01 mg/dL (0.55-1.02); POTASSIUM 3.6 mmol/L (3.5-5.1); SGOT/AST 22 IU/L (3-35); SGPT/ALT 50 U/L (12-78); SODIUM 140 mmol/L (136-145); TOTAL PROTEIN 7.2 gm/dL (6.4-8.2)
[2020-12-26 13:00] LABS: BETA-HCG, QUANT < 1.0 mIU/mL (1-3)
[2020-12-26 14:10] VITALS: BP 131/78
[2020-12-26 14:58] VITALS: BP 128/80
[2020-12-26 16:25] LABS: BILIRUBIN Negative (Negative); BLOOD Negative (Negative); CLARITY Turbid (Clear); COLOR Yellow (Yellow); GLUCOSE 2+ (Negative); KETONE Negative (Negative); LEUKO ESTERASE Negative (Negative); NITRITE Negative (Negative); PH 8.5 (4.5-8.0); UROBILINOGEN 0.2 E.U./dl (0.0-1.0)
[2020-12-26 16:34] LABS: BACTERIA 2+; RBC 0-2 rbc/hpf (0-2); WBC 0-2 wbc/hpf (0-5)
[2020-12-26 17:15] LABS: URINE AMPHETAMINES < 1000 (1000ng/ml); URINE BARBITURATES < 200 (200ng/ml); URINE BENZODIAZEPINES > 200 (200ng/ml); URINE CANNABINOIDS (THC) > 50 (50ng/ml); URINE COCAINE < 300 (300ng/ml); URINE METHADONE < 300 (300ng/ml); URINE OPIATES > 300 (300ng/ml)
[2020-12-26 17:24] LABS: URINE PHENCYCLIDINE < 25 (25ng/ml)
[2020-12-26 22:03] VITALS: BP 131/84
[2020-12-27 02:31] VITALS: BP 156/98
[2020-12-27 04:37] LABS: BASO % 0.3 % (0.0-1.0); EOS # 0.1 10*3/uL (0.0-0.4); EOS % 1.9 % (1.0-4.0); HEMATOCRIT 30.9 % (37.0-47.0); LYMPH # 1.9 10*3/uL (1.3-4.4); LYMPH % 25.3 % (27.0-41.0); MEAN CELL VOLUME 101.6 fl (81.0-99.0); MEAN CORPUSCULAR HGB 33.6 pg (27.0-31.0); MEAN PLATELET VOLUME 9.2 fl (9.6-12.3); MONO # 0.7 10*3/uL (0.1-1.0); MONO % 9.1 % (3.0-9.0); NEUT # 4.6 10*3/uL (2.3-7.9); PLATELET COUNT AUTOMATED 255 10*3/uL (130-400); RED BLOOD COUNT 3.04 10*6/uL (4.10-5.10); RED CELL DISTRI WIDTH 12.1 % (0-14.5); WHITE BLOOD COUNT 7.4 10*3/uL (4.8-10.8)
[2020-12-27 04:57] LABS: ALBUMIN 2.8 gm/dl (3.1-4.5); BUN 15 mg/dl (7-24); CHLORIDE 105 mmol/L (98-107); CREATININE 1.14 mg/dL (0.55-1.02); POTASSIUM 4.1 mmol/L (3.5-5.1); SGOT/AST 27 IU/L (3-35); SGPT/ALT 38 U/L (12-78); SODIUM 137 mmol/L (136-145)
[2020-12-27 05:05] LABS: ALKALINE PHOSPHATASE 69 U/L (45-117); TOTAL PROTEIN 5.8 gm/dL (6.4-8.2)
[2020-12-27 05:06] LABS: FREE T4 0.56 ng/dl (0.76-1.46)
[2020-12-27 06:34] VITALS: BP 165/92
[2020-12-27 08:01] VITALS: BP 138/74
[2020-12-27 12:00] VITALS: BP 142/71
[2020-12-27 13:50] VITALS: BP 143/88
== END 2020-12-27 16:40 | disposition left against medical advice (07) | DRG 103 ==
LOC: ED 11:44 → EDHOLD 20:08 → 4E 12-27 08:32 → EDHOLD 12-27 08:45 → 5E 12-27 13:17
PROVIDERS: Emergency Medicine; Internal Medicine; ADMIT Family Medicine; ATTEND Family Medicine
DX: G43.919 Migraine, unspecified, intractable, without status migrainosus (principal); E87.2 Acidosis; R65.10 Systemic inflammatory response syndrome (SIRS) of non-infectious origin without acute organ dysfunction; G89.29 Other chronic pain; F31.9 Bipolar disorder, unspecified; F41.1 Generalized anxiety disorder; R82.71 Bacteriuria; E11.65 Type 2 diabetes mellitus with hyperglycemia; E11.40 Type 2 diabetes mellitus with diabetic neuropathy, unspecified; F12.90 Cannabis use, unspecified, uncomplicated; F43.10 Post-traumatic stress disorder, unspecified; Z53.29 Procedure and treatment not carried out because of patient's decision for other reasons; Z88.8 Allergy status to other drugs, medicaments and biological substances; Z91.040 Latex allergy status

== ENCOUNTER 2021-01-05 15:06 | Emergency (ER) | payer MEDICARE, OTHER ==
[~2021-01-05] VITALS: Ht 154.9 cm; Wt 52.2 kg
[2021-01-05 15:28] LABS: BASO % 0.3 % (0.0-1.0); EOS # 0.3 10*3/uL (0.0-0.4); EOS % 3.3 % (1.0-4.0); HEMATOCRIT 35.9 % (37.0-47.0); LYMPH # 1.8 10*3/uL (1.3-4.4); LYMPH % 18.1 % (27.0-41.0); MEAN CELL VOLUME 96.8 fl (81.0-99.0); MEAN CORPUSCULAR HGB 33.7 pg (27.0-31.0); MEAN CORPUSCULAR HGB CONC 34.8 g/dl (33.0-37.0); MEAN PLATELET VOLUME 8.9 fl (9.6-12.3); MONO # 0.7 10*3/uL (0.1-1.0); MONO % 6.8 % (3.0-9.0); NEUT % 71.1 % (47.0-73.0); PLATELET COUNT AUTOMATED 410 10*3/uL (130-400); RED BLOOD COUNT 3.71 10*6/uL (4.10-5.10); RED CELL DISTRI WIDTH 11.8 % (0-14.5); WHITE BLOOD COUNT 9.8 10*3/uL (4.8-10.8)
[2021-01-05 15:43] LABS: ALBUMIN 3.5 gm/dl (3.1-4.5); ALKALINE PHOSPHATASE 93 U/L (45-117); BUN 15 mg/dl (7-24); CHLORIDE 101 mmol/L (98-107); CREATININE 0.91 mg/dL (0.55-1.02); POTASSIUM 4.6 mmol/L (3.5-5.1); SGOT/AST 20 IU/L (3-35); SGPT/ALT 30 U/L (12-78); SODIUM 135 mmol/L (136-145); TOTAL PROTEIN 6.8 gm/dL (6.4-8.2)
[2021-01-05 15:45] LABS: B-hCG (QUALITATIVE) NEGATIVE (NEGATIVE)
[2021-01-05 15:48] LABS: ETHYL ALCOHOL < 3.0 mg/dl (<3)
[2021-01-05 15:55] LABS: BILIRUBIN Negative (Negative); BLOOD Negative (Negative); CLARITY Cloudy (Clear); COLOR Yellow (Yellow); GLUCOSE 3+ (Negative); KETONE Negative (Negative); LEUKO ESTERASE Negative (Negative); NITRITE Negative (Negative); SPECIFIC GRAVITY 1.015 (1.001-1.030); UROBILINOGEN 0.2 E.U./dl (0.0-1.0)
[2021-01-05 16:02] LABS: URINE AMPHETAMINES < 1000 (1000ng/ml); URINE BARBITURATES < 200 (200ng/ml); URINE BENZODIAZEPINES > 200 (200ng/ml); URINE CANNABINOIDS (THC) > 50 (50ng/ml); URINE COCAINE < 300 (300ng/ml); URINE METHADONE < 300 (300ng/ml); URINE OPIATES < 300 (300ng/ml); URINE PHENCYCLIDINE < 25 (25ng/ml)
[2021-01-05 16:06] LABS: BACTERIA 2+; RBC 0-2 rbc/hpf (0-2)
== END 2021-01-05 19:00 | disposition home or self-care (01) ==
LOC: ED 15:06
PROVIDERS: Emergency Medicine
DX: G43.119 Migraine with aura, intractable, without status migrainosus (principal); E10.9 Type 1 diabetes mellitus without complications; Z79.899 Other long term (current) drug therapy; Z91.040 Latex allergy status

== ENCOUNTER 2021-04-21 12:37 | Emergency (ER) | payer MEDICARE, OTHER ==
[~2021-04-21] VITALS: Ht 154.9 cm; Wt 54.4 kg
== END 2021-04-21 17:39 | disposition home or self-care (01) ==
LOC: ED 12:37
DX: G43.909 Migraine, unspecified, not intractable, without status migrainosus (principal); H57.12 Ocular pain, left eye; Z88.8 Allergy status to other drugs, medicaments and biological substances; Z91.040 Latex allergy status; Z79.899 Other long term (current) drug therapy

== ENCOUNTER 2021-05-30 08:01 | Inpatient (IN) | payer OTHER ==
[~2021-05-30] VITALS: Ht 154.9 cm; Wt 56.7 kg
[2021-05-30 08:06] VITALS: BP 112/68
[2021-05-30] MEDS ORDERED: TOPAMAX100 M1 PO (08:15)
[2021-05-30] MEDS ORDERED: IMITREX50 MG PO (08:16)
[2021-05-30 09:13] LABS: BASO % 0.4 % (0.0-1.0); EOS # 0.1 10*3/uL (0.0-0.4); EOS % 1.6 % (1.0-4.0); HEMATOCRIT 35.6 % (37.0-47.0); LYMPH # 0.5 10*3/uL (1.3-4.4); LYMPH % 7.3 % (27.0-41.0); MEAN CELL VOLUME 98.9 fl (81.0-99.0); MEAN CORPUSCULAR HGB 33.1 pg (27.0-31.0); MEAN CORPUSCULAR HGB CONC 33.4 g/dl (33.0-37.0); MONO # 0.6 10*3/uL (0.1-1.0); MONO % 8.2 % (3.0-9.0); NEUT # 5.5 10*3/uL (2.3-7.9); NEUT % 82.4 % (47.0-73.0); PLATELET COUNT AUTOMATED 350 10*3/uL (130-400); RED CELL DISTRI WIDTH 12.4 % (0-14.5); WHITE BLOOD COUNT 6.7 10*3/uL (4.8-10.8)
[2021-05-30 09:36] LABS: ALBUMIN 2.8 gm/dl (3.1-4.5); ALKALINE PHOSPHATASE 171 U/L (45-117); BUN 15 mg/dl (7-24); CHLORIDE 105 mmol/L (98-107); CREATININE 1.21 mg/dL (0.55-1.02); POTASSIUM 4.5 mmol/L (3.5-5.1); SGPT/ALT 406 U/L (12-78); SODIUM 141 mmol/L (136-145)
[2021-05-30 09:41] LABS: SGOT/AST 1357 IU/L (3-35)
[2021-05-30 09:49] LABS: BILIRUBIN Negative (Negative); BLOOD 1+ (Negative); CLARITY Turbid (Clear); COLOR Yellow (Yellow); GLUCOSE 2+ (Negative); KETONE Negative (Negative); LEUKO ESTERASE 3+ (Negative); NITRITE Negative (Negative); UROBILINOGEN 0.2 E.U./dl (0.0-1.0)
[2021-05-30 10:09] LABS: WBC TNTC wbc/hpf (0-5)
[2021-05-30 10:19] LABS: URINE AMPHETAMINES < 1000 (1000ng/ml); URINE BARBITURATES < 200 (200ng/ml); URINE BENZODIAZEPINES > 200 (200ng/ml); URINE CANNABINOIDS (THC) > 50 (50ng/ml); URINE COCAINE < 300 (300ng/ml); URINE METHADONE < 300 (300ng/ml); URINE OPIATES > 300 (300ng/ml); URINE PHENCYCLIDINE < 25 (25ng/ml)
[2021-05-30 19:15] VITALS: BP 120/76
[2021-05-30 22:08] VITALS: BP 153/66
[2021-05-31 01:30] VITALS: BP 136/87
[2021-05-31 04:31] VITALS: BP 135/80
[2021-05-31 06:02] LABS: BASO % 0.7 % (0.0-1.0); EOS # 0.5 10*3/uL (0.0-0.4); EOS % 7.8 % (1.0-4.0); HEMATOCRIT 31.3 % (37.0-47.0); LYMPH # 1.3 10*3/uL (1.3-4.4); LYMPH % 22.4 % (27.0-41.0); MEAN CELL VOLUME 99.4 fl (81.0-99.0); MEAN CORPUSCULAR HGB CONC 33.2 g/dl (33.0-37.0); MEAN PLATELET VOLUME 9.1 fl (9.6-12.3); MONO # 0.5 10*3/uL (0.1-1.0); MONO % 8.8 % (3.0-9.0); NEUT # 3.6 10*3/uL (2.3-7.9); NEUT % 60.1 % (47.0-73.0); PLATELET COUNT AUTOMATED 303 10*3/uL (130-400); RED BLOOD COUNT 3.15 10*6/uL (4.10-5.10); RED CELL DISTRI WIDTH 12.3 % (0-14.5); WHITE BLOOD COUNT 5.9 10*3/uL (4.8-10.8)
[2021-05-31 06:13] LABS: ALBUMIN 2.2 gm/dl (3.1-4.5); BUN 13 mg/dl (7-24); CHLORIDE 104 mmol/L (98-107); POTASSIUM 4.4 mmol/L (3.5-5.1); SGOT/AST 251 IU/L (3-35); SGPT/ALT 238 U/L (12-78); SODIUM 138 mmol/L (136-145)
[2021-05-31 06:20] LABS: ALKALINE PHOSPHATASE 138 U/L (45-117); CHOLESTEROL 153 mg/dL (<200); FREE T4 0.71 ng/dl (0.76-1.46); LDL CHOLESTEROL 74 mg/dL (9-159); TOTAL PROTEIN 5.8 gm/dL (6.4-8.2); TRIGLYCERIDES 224 mg/dl (<150)
[2021-05-31 07:06] LABS: HEP B CORE AB, IGM Negative (Negative); HEPATITIS B SURFACE AG Negative (Negative); HEPATITIS C VIRUS ANTIBODY <0.1 s/co (0.0-0.9)
[2021-05-31 08:00] VITALS: BP 114/76
[2021-05-31 12:00] VITALS: BP 117/68
[2021-05-31 16:00] VITALS: BP 116/73
[2021-05-31 20:00] VITALS: BP 112/75
[2021-06-01] VITALS: BP 112/74
[2021-06-01 06:32] LABS: ALBUMIN 2.3 gm/dl (3.1-4.5); ALKALINE PHOSPHATASE 118 U/L (45-117); BUN 7 mg/dl (7-24); CHLORIDE 112 mmol/L (98-107); POTASSIUM 3.7 mmol/L (3.5-5.1); SGOT/AST 74 IU/L (3-35); SGPT/ALT 158 U/L (12-78); SODIUM 145 mmol/L (136-145); TOTAL PROTEIN 5.8 gm/dL (6.4-8.2)
[2021-06-01 08:00] VITALS: BP 113/77
[2021-06-01 11:43] VITALS: BP 91/62
[2021-06-01 16:00] VITALS: BP 113/77
[2021-06-01 20:00] VITALS: BP 117/73
[2021-06-02] VITALS: BP 120/77
[2021-06-02 06:57] LABS: BASO % 0.8 % (0.0-1.0); EOS # 0.6 10*3/uL (0.0-0.4); EOS % 11.8 % (1.0-4.0); LYMPH # 1.5 10*3/uL (1.3-4.4); LYMPH % 27.8 % (27.0-41.0); MEAN CELL VOLUME 96.9 fl (81.0-99.0); MEAN CORPUSCULAR HGB 32.5 pg (27.0-31.0); MEAN CORPUSCULAR HGB CONC 33.5 g/dl (33.0-37.0); MEAN PLATELET VOLUME 9.1 fl (9.6-12.3); MONO # 0.4 10*3/uL (0.1-1.0); MONO % 7.4 % (3.0-9.0); NEUT # 2.7 10*3/uL (2.3-7.9); NEUT % 51.8 % (47.0-73.0); PLATELET COUNT AUTOMATED 392 10*3/uL (130-400); RED BLOOD COUNT 3.51 10*6/uL (4.10-5.10); RED CELL DISTRI WIDTH 12.3 % (0-14.5); WHITE BLOOD COUNT 5.3 10*3/uL (4.8-10.8)
[2021-06-02 07:17] LABS: ALBUMIN 2.7 gm/dl (3.1-4.5); BUN 6 mg/dl (7-24); CHLORIDE 111 mmol/L (98-107); CREATININE 0.85 mg/dL (0.55-1.02); POTASSIUM 3.3 mmol/L (3.5-5.1); SGOT/AST 56 IU/L (3-35); SGPT/ALT 134 U/L (12-78); SODIUM 143 mmol/L (136-145); TOTAL PROTEIN 6.4 gm/dL (6.4-8.2)
[2021-06-02 07:18] LABS: ALKALINE PHOSPHATASE 118 U/L (45-117)
[2021-06-02 08:00] VITALS: BP 127/85
[2021-06-02] MEDS ORDERED: OMNICEF300 MG PO (11:14)
[2021-06-02] MEDS ORDERED: HYDROCODONE-AC1 EAC1 PO (11:15)
== END 2021-06-02 12:23 | disposition home or self-care (01) | DRG 689 ==
LOC: ED 08:01 → EDHOLD 12:02 → 4E 12:02
PROVIDERS: Emergency Medicine; Internal Medicine; Student in an Organized Health Care Education/Training Program; ADMIT Internal Medicine; ATTEND Internal Medicine
DX: N10 Acute pyelonephritis (principal); E43 Unspecified severe protein-calorie malnutrition; N17.0 Acute kidney failure with tubular necrosis; Z20.822 Contact with and (suspected) exposure to COVID-19; R74.01 Elevation of levels of liver transaminase levels; D64.9 Anemia, unspecified; B96.20 Unspecified Escherichia coli [E. coli] as the cause of diseases classified elsewhere; K82.8 Other specified diseases of gallbladder; G43.909 Migraine, unspecified, not intractable, without status migrainosus; E10.65 Type 1 diabetes mellitus with hyperglycemia; E10.42 Type 1 diabetes mellitus with diabetic polyneuropathy; Z68.23 Body mass index [BMI] 23.0-23.9, adult; Z79.4 Long term (current) use of insulin; Z91.040 Latex allergy status; Z88.8 Allergy status to other drugs, medicaments and biological substances; Z79.899 Other long term (current) drug therapy

== ENCOUNTER 2021-07-15 23:17 | Inpatient (IN) | payer OTHER ==
[~2021-07-15] VITALS: Ht 154.9 cm; Wt 55.3 kg
[~2021-07-15 23:17] MED LIST changes: +HYDROCODONE-AC1 EAC1 PO; +IMITREX50 MG PO; +OMNICEF300 MG PO; +TOPAMAX100 M1 PO
[2021-07-15 23:25] VITALS: BP 140/85
[2021-07-15 23:42] LABS: BASO # 0.1 10*3/uL (0.0-0.1); BASO % 0.4 % (0.0-1.0); EOS # 0.1 10*3/uL (0.0-0.4); EOS % 0.4 % (1.0-4.0); HEMATOCRIT 40.4 % (37.0-47.0); LYMPH # 2.5 10*3/uL (1.3-4.4); LYMPH % 16.6 % (27.0-41.0); MEAN CELL VOLUME 96.2 fl (81.0-99.0); MEAN CORPUSCULAR HGB 32.4 pg (27.0-31.0); MEAN CORPUSCULAR HGB CONC 33.7 g/dl (33.0-37.0); MEAN PLATELET VOLUME 9.5 fl (9.6-12.3); MONO # 0.9 10*3/uL (0.1-1.0); MONO % 5.9 % (3.0-9.0); NEUT # 11.1 10*3/uL (2.3-7.9); NEUT % 75.3 % (47.0-73.0); PLATELET COUNT AUTOMATED 375 10*3/uL (130-400); RED CELL DISTRI WIDTH 12.2 % (0-14.5); WHITE BLOOD COUNT 14.8 10*3/uL (4.8-10.8)
[2021-07-15 23:57] LABS: CREATININE 1.64 mg/dL (0.55-1.02); POTASSIUM 4.1 mmol/L (3.5-5.1); TOTAL PROTEIN 7.9 gm/dL (6.4-8.2)
[2021-07-16] VITALS (12 sets, daily range): BP systolic 113–153; BP diastolic 56–89
[2021-07-16 02:55] LABS: BUN 24 mg/dl (7-24); CHLORIDE 104 mmol/L (98-107); CREATININE 1.59 mg/dL (0.55-1.02); POTASSIUM 3.7 mmol/L (3.5-5.1); SODIUM 139 mmol/L (136-145)
[2021-07-16 03:00] LABS: BETA-HCG, QUANT < 1.0 mIU/mL (1-3)
[2021-07-16 05:56] LABS: CREATININE 1.72 mg/dL (0.55-1.02); POTASSIUM 3.8 mmol/L (3.5-5.1)
[2021-07-16 06:18] LABS: HEMATOCRIT 40.8 % (37.0-47.0); MEAN CORPUSCULAR HGB CONC 33.3 g/dl (33.0-37.0); MEAN PLATELET VOLUME 9.8 fl (9.6-12.3); PLATELET COUNT AUTOMATED 350 10*3/uL (130-400); RED BLOOD COUNT 4.12 10*6/uL (4.10-5.10); RED CELL DISTRI WIDTH 12.4 % (0-14.5); WHITE BLOOD COUNT 23.9 10*3/uL (4.8-10.8)
[2021-07-16 06:19] LABS: MANUAL DIFF REFLEX YES
[2021-07-16 07:02] LABS: PLATELET SUFFICIENCY NORMAL (NORMAL); TOTAL CELLS COUNTED 100 #CELLS
[2021-07-16 07:12] LABS: VITAMIN D, 25-HYDROXY 9.7 ng/mL (30-100)
[2021-07-16 08:01] LABS: BILIRUBIN Negative (Negative); BLOOD Negative (Negative); CLARITY Clear (Clear); COLOR Yellow (Yellow); GLUCOSE 3+ (Negative); KETONE 4+ (Negative); LEUKO ESTERASE Negative (Negative); NITRITE Negative (Negative); UROBILINOGEN 0.2 E.U./dl (0.0-1.0)
[2021-07-16 08:10] LABS: BACTERIA 2+; EPITHELIAL CELLS 16-20; RBC 0-2 rbc/hpf (0-2)
[2021-07-16 08:12] LABS: URINE AMPHETAMINES < 1000 (1000ng/ml); URINE BARBITURATES < 200 (200ng/ml); URINE BENZODIAZEPINES < 200 (200ng/ml); URINE CANNABINOIDS (THC) > 50 (50ng/ml); URINE COCAINE < 300 (300ng/ml); URINE METHADONE < 300 (300ng/ml); URINE OPIATES > 300 (300ng/ml)
[2021-07-16 08:23] LABS: URINE PHENCYCLIDINE < 25 (25ng/ml)
[2021-07-16 09:43] LABS: CREATININE 1.6 mg/dL (0.55-1.02); POTASSIUM 4.7 mmol/L (3.5-5.1)
[2021-07-16 12:23] LABS: CREATININE 1.83 mg/dL (0.55-1.02); POTASSIUM 4.2 mmol/L (3.5-5.1)
[2021-07-16 15:40] LABS: CREATININE 1.82 mg/dL (0.55-1.02); POTASSIUM 3.6 mmol/L (3.5-5.1)
[2021-07-16 22:41] LABS: CREATININE 1.89 mg/dL (0.55-1.02); POTASSIUM 3.5 mmol/L (3.5-5.1)
[2021-07-17] VITALS: BP 164/89
[2021-07-17 04:00] VITALS: BP 133/85
[2021-07-17 06:35] LABS: BASO % 0.1 % (0.0-1.0); EOS % 0.1 % (1.0-4.0); LYMPH # 1.4 10*3/uL (1.3-4.4); LYMPH % 9.9 % (27.0-41.0); MEAN CELL VOLUME 98.6 fl (81.0-99.0); MEAN CORPUSCULAR HGB CONC 33.4 g/dl (33.0-37.0); MEAN PLATELET VOLUME 9.9 fl (9.6-12.3); MONO # 0.9 10*3/uL (0.1-1.0); MONO % 6.4 % (3.0-9.0); NEUT # 11.6 10*3/uL (2.3-7.9); RED BLOOD COUNT 2.94 10*6/uL (4.10-5.10); RED CELL DISTRI WIDTH 12.5 % (0-14.5)
[2021-07-17 06:36] LABS: CREATININE 1.66 mg/dL (0.55-1.02); POTASSIUM 2.7 mmol/L (3.5-5.1)
[2021-07-17 06:38] LABS: PLATELET COUNT AUTOMATED 237 10*3/uL (130-400)
[2021-07-17 08:00] VITALS: BP 133/81
[2021-07-17 12:00] VITALS: BP 137/72
[2021-07-17 16:00] VITALS: BP 112/74
[2021-07-17 17:39] LABS: CREATININE 1.45 mg/dL (0.55-1.02)
[2021-07-17 20:00] VITALS: BP 100/63
[2021-07-17 23:55] LABS: CREATININE 1.29 mg/dL (0.55-1.02); POTASSIUM 3.2 mmol/L (3.5-5.1)
[2021-07-18] VITALS: BP 147/82
[2021-07-18 04:00] VITALS: BP 118/80
[2021-07-18 05:42] LABS: CREATININE 1.28 mg/dL (0.55-1.02); POTASSIUM 3.3 mmol/L (3.5-5.1)
[2021-07-18 06:18] LABS: BASO % 0.2 % (0.0-1.0); EOS # 0.1 10*3/uL (0.0-0.4); EOS % 0.5 % (1.0-4.0); HEMATOCRIT 29.8 % (37.0-47.0); LYMPH % 27.8 % (27.0-41.0); MEAN CELL VOLUME 95.8 fl (81.0-99.0); MEAN CORPUSCULAR HGB 32.8 pg (27.0-31.0); MEAN CORPUSCULAR HGB CONC 34.2 g/dl (33.0-37.0); MEAN PLATELET VOLUME 9.8 fl (9.6-12.3); MONO # 0.8 10*3/uL (0.1-1.0); MONO % 6.9 % (3.0-9.0); NEUT % 64.2 % (47.0-73.0); PLATELET COUNT AUTOMATED 228 10*3/uL (130-400); RED BLOOD COUNT 3.11 10*6/uL (4.10-5.10); RED CELL DISTRI WIDTH 12.1 % (0-14.5); WHITE BLOOD COUNT 10.9 10*3/uL (4.8-10.8)
[2021-07-18 08:00] VITALS: BP 142/89
[2021-07-18 12:00] VITALS: BP 157/86
== END 2021-07-18 16:10 | disposition left against medical advice (07) | DRG 871 ==
LOC: ED 23:17 → EDBD 23:22 → ICCU 07-16 02:15 → EDHOLD 07-16 02:15 → ICCU 07-16 10:43
PROVIDERS: Internal Medicine; Student in an Organized Health Care Education/Training Program; ADMIT Family Medicine; ATTEND Family Medicine
DX: A41.9 Sepsis, unspecified organism (principal); N17.0 Acute kidney failure with tubular necrosis; E10.10 Type 1 diabetes mellitus with ketoacidosis without coma; K52.9 Noninfective gastroenteritis and colitis, unspecified; K20.90 Esophagitis, unspecified without bleeding; F31.9 Bipolar disorder, unspecified; E28.2 Polycystic ovarian syndrome; F41.1 Generalized anxiety disorder; E10.49 Type 1 diabetes mellitus with other diabetic neurological complication; F43.10 Post-traumatic stress disorder, unspecified; Z53.29 Procedure and treatment not carried out because of patient's decision for other reasons; R65.20 Severe sepsis without septic shock; Z79.1 Long term (current) use of non-steroidal anti-inflammatories (NSAID); Z79.899 Other long term (current) drug therapy; Z91.040 Latex allergy status; Z88.8 Allergy status to other drugs, medicaments and biological substances

== ENCOUNTER 2021-09-21 09:50 | Emergency (ER) | payer OTHER ==
[~2021-09-21] VITALS: Wt 54.4 kg
[2021-09-21 10:51] LABS: BASO % 0.3 % (0.0-1.0); EOS # 0.2 10*3/uL (0.0-0.4); EOS % 3.6 % (1.0-4.0); HEMATOCRIT 36.2 % (37.0-47.0); LYMPH # 2.4 10*3/uL (1.3-4.4); LYMPH % 35.6 % (27.0-41.0); MEAN CELL VOLUME 95.8 fl (81.0-99.0); MEAN CORPUSCULAR HGB 33.1 pg (27.0-31.0); MEAN CORPUSCULAR HGB CONC 34.5 g/dl (33.0-37.0); MEAN PLATELET VOLUME 8.7 fl (9.6-12.3); MONO # 0.5 10*3/uL (0.1-1.0); MONO % 7.4 % (3.0-9.0); NEUT # 3.6 10*3/uL (2.3-7.9); NEUT % 52.8 % (47.0-73.0); PLATELET COUNT AUTOMATED 351 10*3/uL (130-400); RED BLOOD COUNT 3.78 10*6/uL (4.10-5.10); RED CELL DISTRI WIDTH 13.3 % (0-14.5); WHITE BLOOD COUNT 6.7 10*3/uL (4.8-10.8)
[2021-09-21 11:07] LABS: BUN 20 mg/dl (7-24); CHLORIDE 109 mmol/L (98-107); CREATININE 1.09 mg/dL (0.55-1.02); SODIUM 141 mmol/L (136-145)
[2021-09-21] MEDS ORDERED: SEPTDS PO (14:14)
[2021-09-21] MEDS ORDERED: AUGMENTIN 875-875 MG PO (14:14)
== END 2021-09-21 14:37 | disposition home or self-care (01) ==
LOC: ED 09:50
PROVIDERS: Emergency Medicine
DX: L03.213 Periorbital cellulitis (principal); R51.9 Headache, unspecified; F12.90 Cannabis use, unspecified, uncomplicated; E10.40 Type 1 diabetes mellitus with diabetic neuropathy, unspecified; Z79.4 Long term (current) use of insulin; Z91.040 Latex allergy status; Z88.8 Allergy status to other drugs, medicaments and biological substances

== ENCOUNTER 2021-12-06 14:23 | Inpatient (IN) | payer OTHER ==
[~2021-12-06] VITALS: Ht 154.9 cm; Wt 57.4 kg
[~2021-12-06 14:23] MED LIST changes: +AUGMENTIN 875-875 MG PO; +COMPAZINE10 M1 PO; +MINIPRESS1 M1 PO; +TOPIRAMATE100 M2 PO
[2021-12-06 14:27] VITALS: BP 145/80
[2021-12-06 15:08] LABS: BASO # 0.1 10*3/uL (0.0-0.1); BASO % 0.5 % (0.0-1.0); EOS # 0.1 10*3/uL (0.0-0.4); EOS % 0.8 % (1.0-4.0); HEMATOCRIT 40.9 % (37.0-47.0); LYMPH # 1.9 10*3/uL (1.3-4.4); LYMPH % 17.4 % (27.0-41.0); MEAN CELL VOLUME 95.1 fl (81.0-99.0); MEAN CORPUSCULAR HGB 32.3 pg (27.0-31.0); MONO # 0.6 10*3/uL (0.1-1.0); MONO % 5.1 % (3.0-9.0); NEUT # 8.2 10*3/uL (2.3-7.9); NEUT % 75.7 % (47.0-73.0); PLATELET COUNT AUTOMATED 317 10*3/uL (130-400); WHITE BLOOD COUNT 10.8 10*3/uL (4.8-10.8)
[2021-12-06 15:24] LABS: ACT PARTIAL THROMBO TIME 21.3 SECONDS (20.0-32.1); INTERNATIONAL NORM RATIO 0.9 (2.0-3.5)
[2021-12-06 15:27] LABS: ALKALINE PHOSPHATASE 82 U/L (45-117); BUN 13 mg/dl (7-24); CHLORIDE 104 mmol/L (98-107); POTASSIUM 3.5 mmol/L (3.5-5.1); SGOT/AST 22 IU/L (3-35); SGPT/ALT 23 U/L (12-78); SODIUM 141 mmol/L (136-145); TOTAL PROTEIN 7.6 gm/dL (6.4-8.2)
[2021-12-06 15:30] LABS: B-hCG (QUALITATIVE) NEGATIVE (NEGATIVE)
[2021-12-06 16:08] LABS: BILIRUBIN Negative (Negative); BLOOD Trace-Lysed (Negative); CLARITY Clear (Clear); COLOR Yellow (Yellow); GLUCOSE 3+ (Negative); KETONE 4+ (Negative); LEUKO ESTERASE Negative (Negative); NITRITE Negative (Negative); PH 5.5 (4.5-8.0); UROBILINOGEN 0.2 E.U./dl (0.0-1.0)
[2021-12-06 16:17] LABS: BACTERIA 3+
[2021-12-06] MEDS ORDERED: QUETIAPINE FUM300 M1 PO (17:50)
[2021-12-06] MEDS ORDERED: ONETOUCH ULTRA1 EACH MC (17:50)
[2021-12-06] MEDS ORDERED: NOVOLOG FL100 UNIT/2 SQ (17:51)
[2021-12-06] MEDS ORDERED: BASAG SOL SQ (17:51)
[2021-12-06 18:21] LABS: BUN 10 mg/dl (7-24); CHLORIDE 111 mmol/L (98-107); CREATININE 0.99 mg/dL (0.55-1.02); POTASSIUM 3.5 mmol/L (3.5-5.1); SODIUM 142 mmol/L (136-145)
[2021-12-06 18:44] VITALS: BP 140/79
[2021-12-06 22:22] LABS: BUN 9 mg/dl (7-24); CHLORIDE 112 mmol/L (98-107); CREATININE 1.19 mg/dL (0.55-1.02); POTASSIUM 3.6 mmol/L (3.5-5.1); SODIUM 139 mmol/L (136-145)
[2021-12-07 02:21] LABS: BUN 6 mg/dl (7-24); CHLORIDE 108 mmol/L (98-107); CREATININE 1.07 mg/dL (0.55-1.02); POTASSIUM 3.4 mmol/L (3.5-5.1); SODIUM 140 mmol/L (136-145)
[2021-12-07 06:06] LABS: BASO % 0.1 % (0.0-1.0); EOS # 0.1 10*3/uL (0.0-0.4); EOS % 0.6 % (1.0-4.0); HEMATOCRIT 31.9 % (37.0-47.0); LYMPH # 2.9 10*3/uL (1.3-4.4); LYMPH % 29.5 % (27.0-41.0); MEAN CELL VOLUME 94.1 fl (81.0-99.0); MEAN CORPUSCULAR HGB CONC 35.1 g/dl (33.0-37.0); MONO # 0.7 10*3/uL (0.1-1.0); MONO % 7.4 % (3.0-9.0); NEUT % 62.1 % (47.0-73.0); PLATELET COUNT AUTOMATED 265 10*3/uL (130-400); RED BLOOD COUNT 3.39 10*6/uL (4.10-5.10); RED CELL DISTRI WIDTH 11.9 % (0-14.5); WHITE BLOOD COUNT 9.7 10*3/uL (4.8-10.8)
[2021-12-07 06:21] LABS: BUN 5 mg/dl (7-24); CHLORIDE 111 mmol/L (98-107); CHOLESTEROL 167 mg/dL (<200); CREATININE 1.13 mg/dL (0.55-1.02); LDL CHOLESTEROL 83 mg/dL (9-159); POTASSIUM 3.2 mmol/L (3.5-5.1); SGOT/AST 18 IU/L (3-35); SGPT/ALT 17 U/L (12-78); SODIUM 143 mmol/L (136-145); TOTAL PROTEIN 5.8 gm/dL (6.4-8.2); TRIGLYCERIDES 240 mg/dl (<150)
[2021-12-07 06:27] LABS: ALKALINE PHOSPHATASE 64 U/L (45-117); FREE T4 0.78 ng/dl (0.76-1.46)
[2021-12-07 07:01] VITALS: BP 118/76
[2021-12-07 09:44] LABS: VITAMIN D, 25-HYDROXY 12.6 ng/mL (30-100)
[2021-12-07 09:46] VITALS: BP 120/68
[2021-12-07 11:11] LABS: BUN 4 mg/dl (7-24); CHLORIDE 112 mmol/L (98-107); CREATININE 1.09 mg/dL (0.55-1.02); POTASSIUM 3.6 mmol/L (3.5-5.1); SODIUM 141 mmol/L (136-145)
[2021-12-07 15:02] VITALS: BP 107/71
[2021-12-07 20:00] VITALS: BP 107/69
[2021-12-08] VITALS: BP 112/73
[2021-12-08 06:05] LABS: BUN 5 mg/dl (7-24); CHLORIDE 116 mmol/L (98-107); CREATININE 0.88 mg/dL (0.55-1.02); POTASSIUM 3.3 mmol/L (3.5-5.1); SODIUM 144 mmol/L (136-145)
[2021-12-08 06:08] LABS: BASO % 0.4 % (0.0-1.0); EOS # 0.2 10*3/uL (0.0-0.4); EOS % 3.6 % (1.0-4.0); HEMATOCRIT 38.8 % (37.0-47.0); LYMPH # 1.8 10*3/uL (1.3-4.4); LYMPH % 33.8 % (27.0-41.0); MEAN CORPUSCULAR HGB 33.4 pg (27.0-31.0); MEAN PLATELET VOLUME 9.2 fl (9.6-12.3); MONO # 0.5 10*3/uL (0.1-1.0); MONO % 8.7 % (3.0-9.0); NEUT # 2.8 10*3/uL (2.3-7.9); NEUT % 53.3 % (47.0-73.0); PLATELET COUNT AUTOMATED 272 10*3/uL (130-400); RED BLOOD COUNT 3.95 10*6/uL (4.10-5.10); RED CELL DISTRI WIDTH 11.9 % (0-14.5); WHITE BLOOD COUNT 5.3 10*3/uL (4.8-10.8)
[2021-12-08 06:26] LABS: MEAN CELL VOLUME 98.2 fl (81.0-99.0)
[2021-12-08 08:00] VITALS: BP 128/82
[2021-12-08] MEDS ORDERED: OMNICEF300 MG PO (09:57)
== END 2021-12-08 11:25 | disposition home or self-care (01) | DRG 637 ==
LOC: ED 14:23 → EDHOLD 16:09 → 5E 12-07 14:09
PROVIDERS: Emergency Medicine; Family Medicine; Internal Medicine; ADMIT Emergency Medicine; ATTEND Emergency Medicine
DX: E10.10 Type 1 diabetes mellitus with ketoacidosis without coma (principal); N17.0 Acute kidney failure with tubular necrosis; N18.30 Chronic kidney disease, stage 3 unspecified; F41.1 Generalized anxiety disorder; F32.9 Major depressive disorder, single episode, unspecified; E87.6 Hypokalemia; F12.90 Cannabis use, unspecified, uncomplicated; R82.71 Bacteriuria; E10.42 Type 1 diabetes mellitus with diabetic polyneuropathy; E10.22 Type 1 diabetes mellitus with diabetic chronic kidney disease

== ENCOUNTER 2023-02-12 12:38 | Inpatient (IN) | payer OTHER ==
[~2023-02-12] VITALS: Ht 154.9 cm; Wt 63.2 kg
[~2023-02-12 12:38] MED LIST changes: +BASAG SOL SQ; +LANTUS SOL100 UNIT/1 SQ; +NOVOLOG FL100 UNIT/2 SQ; +ONETOUCH ULTRA1 EACH MC; +ONETOUCH ULTRA1 EACH SC; +PRILOSEC20 M1 PO; +QUETIAPINE FUM300 M1 PO; +REGLAN10 M1 PO
[2023-02-12 12:53] VITALS: BP 94/63
[2023-02-12 13:46] LABS: BASO % 0.2 % (0.0-1.0); EOS % 0.1 % (1.0-4.0); HEMATOCRIT 42.4 % (37.0-47.0); LYMPH # 1.3 10*3/uL (1.3-4.4); LYMPH % 7.7 % (27.0-41.0); MEAN CELL VOLUME 97.5 fl (81.0-99.0); MEAN CORPUSCULAR HGB CONC 32.8 g/dl (33.0-37.0); MEAN PLATELET VOLUME 9.3 fl (9.6-12.3); MONO # 0.5 10*3/uL (0.1-1.0); MONO % 3.3 % (3.0-9.0); NEUT # 14.6 10*3/uL (2.3-7.9); NEUT % 88.2 % (47.0-73.0); PLATELET COUNT AUTOMATED 355 10*3/uL (130-400); RED BLOOD COUNT 4.35 10*6/uL (4.10-5.10); RED CELL DISTRI WIDTH 12.6 % (0-14.5); WHITE BLOOD COUNT 16.5 10*3/uL (4.8-10.8)
[2023-02-12 14:02] LABS: ACT PARTIAL THROMBO TIME 23.5 SECONDS (20.0-32.1); INTERNATIONAL NORM RATIO 0.9 (2.0-3.5)
[2023-02-12 14:03] VITALS: BP 105/62
[2023-02-12 14:17] LABS: ALKALINE PHOSPHATASE 124 U/L (46-116); BUN 21 mg/dl (9-23); CHLORIDE 105 mmol/L (98-107); LIPASE 25 U/L (12-53); POTASSIUM 4.1 mmol/L (3.4-5.1); SGPT/ALT 30 U/L (10-49); TOTAL PROTEIN 8.4 gm/dL (6.0-8.0)
[2023-02-12 14:52] VITALS: BP 108/63
[2023-02-12 16:28] LABS: ARTERIAL BLOOD GAS PH 7.211 (7.35-7.45)
[2023-02-12 16:30] LABS: ABG BASE EXCESS -11.1 mmol/L (-2.0-2.0); ARTERIAL BLOOD GAS PO2 38.9 (80-90)
[2023-02-12] MEDS ORDERED: BASAG SOL SC (20:25)
[2023-02-12] MEDS ORDERED: ATORVASTATIN CA40 M1 PO (20:26)
[2023-02-12 20:32] VITALS: BP 102/61
[2023-02-12 20:45] VITALS: BP 102/57
[2023-02-12 20:57] LABS: POTASSIUM 5.1 mmol/L (3.4-5.1)
[2023-02-12 22:16] LABS: POTASSIUM 4.2 mmol/L (3.4-5.1)
[2023-02-13] VITALS: BP 108/61
[2023-02-13 02:23] LABS: POTASSIUM 4.4 mmol/L (3.4-5.1)
[2023-02-13 04:00] VITALS: BP 110/69
[2023-02-13 05:24] LABS: BILIRUBIN Negative (Negative); BLOOD Negative (Negative); CLARITY Clear (Clear); COLOR Yellow (Yellow); GLUCOSE 3+ (Negative); KETONE 3+ (Negative); LEUKO ESTERASE Negative (Negative); NITRITE Negative (Negative); PH 5.5 (4.5-8.0); SPECIFIC GRAVITY 1.025 (1.001-1.030)
[2023-02-13 05:31] LABS: BACTERIA TRACE; FINE GRANULAR CAST 0-2; MUCOUS 1+; RBC 0-2 rbc/hpf (0-2)
[2023-02-13 05:32] LABS: URINE AMPHETAMINES Negative (1000ng/ml); URINE BARBITURATES Negative (200ng/ml); URINE BENZODIAZEPINES Positive (200ng/ml); URINE CANNABINOIDS (THC) Positive (50ng/ml); URINE COCAINE Negative (300ng/ml); URINE METHADONE Negative (300ng/ml); URINE OPIATES Negative (300ng/ml); URINE PHENCYCLIDINE Negative (25ng/ml)
[2023-02-13 06:40] LABS: BASO % 0.3 % (0.0-1.0); EOS # 0.1 10*3/uL (0.0-0.4); EOS % 0.8 % (1.0-4.0); HEMATOCRIT 30.2 % (37.0-47.0); LYMPH # 3.6 10*3/uL (1.3-4.4); LYMPH % 30.4 % (27.0-41.0); MEAN CELL VOLUME 94.7 fl (81.0-99.0); MEAN CORPUSCULAR HGB 32.9 pg (27.0-31.0); MEAN CORPUSCULAR HGB CONC 34.8 g/dl (33.0-37.0); MEAN PLATELET VOLUME 9.3 fl (9.6-12.3); MONO # 0.9 10*3/uL (0.1-1.0); MONO % 7.1 % (3.0-9.0); NEUT # 7.3 10*3/uL (2.3-7.9); NEUT % 61.1 % (47.0-73.0); PLATELET COUNT AUTOMATED 272 10*3/uL (130-400); RED BLOOD COUNT 3.19 10*6/uL (4.10-5.10); RED CELL DISTRI WIDTH 12.6 % (0-14.5)
[2023-02-13 06:50] LABS: ACT PARTIAL THROMBO TIME 24.5 SECONDS (20.0-32.1)
[2023-02-13 07:09] LABS: FREE T4 0.65 ng/dl (0.89-1.76); POTASSIUM 4.1 mmol/L (3.4-5.1)
[2023-02-13 08:00] VITALS: BP 100/52
[2023-02-13 10:49] LABS: POTASSIUM 3.8 mmol/L (3.4-5.1)
[2023-02-13] MEDS ORDERED: AMOX-CLAV 500-1 EACH PO (12:21)
== END 2023-02-13 14:00 | disposition home or self-care (01) | DRG 637 ==
LOC: ED 12:38 → EDHOLD 14:42 → ICCU 14:42
PROVIDERS: Emergency Medicine; Student in an Organized Health Care Education/Training Program; ADMIT Internal Medicine; ATTEND Internal Medicine
DX: E10.10 Type 1 diabetes mellitus with ketoacidosis without coma (principal); N17.0 Acute kidney failure with tubular necrosis; R65.10 Systemic inflammatory response syndrome (SIRS) of non-infectious origin without acute organ dysfunction; E10.40 Type 1 diabetes mellitus with diabetic neuropathy, unspecified; F41.1 Generalized anxiety disorder; N18.32 Chronic kidney disease, stage 3b; E55.9 Vitamin D deficiency, unspecified; E10.22 Type 1 diabetes mellitus with diabetic chronic kidney disease; F32.9 Major depressive disorder, single episode, unspecified; Z88.8 Allergy status to other drugs, medicaments and biological substances; Z91.040 Latex allergy status

== ENCOUNTER 2023-07-24 20:28 | Inpatient (IN) | payer OTHER ==
[~2023-07-24] VITALS: Ht 157.4 cm; Wt 60.8 kg
[~2023-07-24 20:28] MED LIST changes: +AMOX-CLAV 500-1 EACH PO; +BASAG SOL SC; +PHENERGAN25 M3 PO; +Phenergan25 MG PO
[2023-07-24 20:32] VITALS: BP 140/88
[2023-07-24] MEDS ORDERED: SODIUM CHLORIDE 0.9% 1,000 ML IV ONE ×3 (20:35→21:30)
[2023-07-24] MEDS ORDERED: INSULIN REGULAR, HUMAN 1 UNIT/0.01 ML IV ONE ×2 (20:35)
[2023-07-24 20:42] LABS: HEMATOCRIT 38.6 % (37.0-47.0); MEAN CELL VOLUME 95.1 fl (81.0-99.0); MEAN CORPUSCULAR HGB 30.8 pg (27.0-31.0); MEAN CORPUSCULAR HGB CONC 32.4 g/dl (33.0-37.0); MEAN PLATELET VOLUME 9.5 fl (9.6-12.3); PLATELET COUNT AUTOMATED 420 10*3/uL (130-400); RED BLOOD COUNT 4.06 10*6/uL (4.10-5.10); RED CELL DISTRI WIDTH 12.5 % (0-14.5); WHITE BLOOD COUNT 26.6 10*3/uL (4.8-10.8)
[2023-07-24] MEDS ORDERED: TOUJEO MAX300 UNIT/1 SQ (20:42)
[2023-07-24] MEDS ORDERED: LIPITOR40 MG PO (20:43)
[2023-07-24 20:44] LABS: MANUAL DIFF REFLEX YES
[2023-07-24 20:51] LABS: ARTERIAL BLOOD GAS PH 7.286 (7.35-7.45)
[2023-07-24 20:55] LABS: ABG BASE EXCESS -12.1 mmol/L (-2.0-2.0)
[2023-07-24 21:11] LABS: OVALOCYTES FEW; PLATELET SUFFICIENCY HIGH (NORMAL); SPHEROCYTES FEW; STOMATOCYTE FEW; TOTAL CELLS COUNTED 100 #CELLS
[2023-07-24 21:21] LABS: POTASSIUM 4.5 mmol/L (3.4-5.1); TOTAL PROTEIN 7.9 gm/dL (6.0-8.0)
[2023-07-24] MEDS ORDERED: INSULIN REGULAR IN 0.9 % NACL 100 ML IV SCH (21:30)
[2023-07-24 21:43] VITALS: BP 134/81
[2023-07-24] MEDS ORDERED: TEMAZEPAM 15 MG CAP PO PRN (22:05)
[2023-07-24] MEDS ORDERED: Magnesium Hydroxide 30 ML UDC PO PRN (22:05)
[2023-07-24] MEDS ORDERED: Ondansetron Hydrochloride 4 MG/2 ML VIAL IV PRN (22:05)
[2023-07-24] MEDS ORDERED: ACETAMINOPHEN 650 MG SUPP R PRN (22:05)
[2023-07-24] MEDS ORDERED: ACETAMINOPHEN 325 MG TAB PO PRN (22:05)
[2023-07-24] MEDS ORDERED: BISACODYL 5 MG TAB PO PRN (22:05)
[2023-07-24] MEDS ORDERED: MORPHINE Sulfate 2 MG/ML SYR IV PRN (22:05)
[2023-07-24] MEDS ORDERED: BISACODYL 10 MG SUPP R PRN (22:05)
[2023-07-24] MEDS ORDERED: POTASSIUM CHLORIDE 20 MEQ TAB PO PRN (22:10)
[2023-07-24] MEDS ORDERED: DEXTROSE 10 % IN WATER 250 ML IV PRN (22:10)
[2023-07-24] MEDS ORDERED: POTASSIUM CHLORIDE IN WATER 100 ML IV PRN (22:10)
[2023-07-24 22:37] VITALS: BP 130/85
[2023-07-24 23:00] VITALS: BP 148/89
[2023-07-24] MEDS ORDERED: SODIUM CHLORIDE 0.9% 10 ML VIAL IV SCH (23:55)
[2023-07-25] VITALS: BP 137/81
[2023-07-25] MEDS ORDERED: SODIUM CHLORIDE 0.9% 1,000 ML IV SCH (00:05)
[2023-07-25] MEDS ORDERED: DEXTROSE 5% SALINE 0.9% 1,000 ML IV SCH (00:25)
[2023-07-25 00:46] LABS: POTASSIUM 4.5 mmol/L (3.4-5.1)
[2023-07-25 04:00] VITALS: BP 159/84
[2023-07-25 04:35] LABS: HEMATOCRIT 33.7 % (37.0-47.0); MEAN CORPUSCULAR HGB 31.4 pg (27.0-31.0); MEAN CORPUSCULAR HGB CONC 34.7 g/dl (33.0-37.0); MEAN PLATELET VOLUME 8.9 fl (9.6-12.3); PLATELET COUNT AUTOMATED 362 10*3/uL (130-400); RED BLOOD COUNT 3.73 10*6/uL (4.10-5.10); RED CELL DISTRI WIDTH 12.8 % (0-14.5); WHITE BLOOD COUNT 22.1 10*3/uL (4.8-10.8)
[2023-07-25 04:36] LABS: MANUAL DIFF REFLEX YES; MEAN CELL VOLUME 90.3 fl (81.0-99.0)
[2023-07-25 04:50] LABS: POTASSIUM 3.9 mmol/L (3.4-5.1)
[2023-07-25 05:23] LABS: PLATELET SUFFICIENCY NORMAL (NORMAL); TOTAL CELLS COUNTED 100 #CELLS
[2023-07-25] MEDS ORDERED: Pantoprazole Sodium 40 MG VIAL IV SCH (06:00)
[2023-07-25] MEDS ORDERED: INSULIN LISPRO 1 UNIT/0.01 ML SQ SCH (07:30)
[2023-07-25 08:00] VITALS: BP 147/86
[2023-07-25 09:05] LABS: BILIRUBIN Negative (Negative); BLOOD Trace-Lysed (Negative); CLARITY Clear (Clear); COLOR Yellow (Yellow); GLUCOSE 3+ (Negative); KETONE 3+ (Negative); LEUKO ESTERASE Negative (Negative); NITRITE Negative (Negative); PH 5.5 (4.5-8.0); UROBILINOGEN 0.2 E.U./dl (0.0-1.0)
[2023-07-25] MEDS ORDERED: DEXTROSE 5% SALINE 0.45% 1,000 ML IV SCH (09:10)
[2023-07-25 09:59] LABS: POTASSIUM 3.7 mmol/L (3.4-5.1)
[2023-07-25] MEDS ORDERED: HEPARIN SODIUM 5,000 UNIT/ML VIAL SC SCH (10:00)
[2023-07-25 10:06] LABS: BACTERIA 2+
[2023-07-25] MEDS ORDERED: Promethazine Hydrochloride 25 MG/ML VIAL IV PRN (10:35)
[2023-07-25 12:00] VITALS: BP 144/94
[2023-07-25 16:00] VITALS: BP 117/70
[2023-07-25 20:00] VITALS: BP 161/92
[2023-07-25 20:30] LABS: CHLORIDE 103 mmol/L (98-107); POTASSIUM 3.3 mmol/L (3.4-5.1)
[2023-07-25 20:35] LABS: BUN 10 mg/dl (9-23)
[2023-07-25] MEDS ORDERED: LORazepam 0.5 MG TAB PO SCH (22:00)
[2023-07-25] MEDS ORDERED: QUETIAPINE FUMARATE 300 MG TAB PO SCH (22:00)
[2023-07-26] VITALS: BP 144/84
[2023-07-26 04:00] VITALS: BP 125/74
[2023-07-26 05:46] LABS: BUN 7 mg/dl (9-23); CHLORIDE 104 mmol/L (98-107); POTASSIUM 3.1 mmol/L (3.4-5.1)
[2023-07-26 06:25] LABS: BASO % 0.1 % (0.0-1.0); EOS % 0.1 % (1.0-4.0); HEMATOCRIT 30.9 % (37.0-47.0); LYMPH # 1.9 10*3/uL (1.3-4.4); LYMPH % 12.5 % (27.0-41.0); MEAN CORPUSCULAR HGB 30.7 pg (27.0-31.0); MEAN CORPUSCULAR HGB CONC 33.3 g/dl (33.0-37.0); MEAN PLATELET VOLUME 9.5 fl (9.6-12.3); MONO % 6.3 % (3.0-9.0); NEUT # 12.3 10*3/uL (2.3-7.9); NEUT % 80.8 % (47.0-73.0); PLATELET COUNT AUTOMATED 301 10*3/uL (130-400); RED BLOOD COUNT 3.36 10*6/uL (4.10-5.10); RED CELL DISTRI WIDTH 12.6 % (0-14.5); WHITE BLOOD COUNT 15.2 10*3/uL (4.8-10.8)
[2023-07-26 08:00] VITALS: BP 123/77
[2023-07-26] MEDS ORDERED: Duloxetine Hydrochloride 60 MG CAP PO SCH (10:00)
[2023-07-26] MEDS ORDERED: ATORVASTATIN CALCIUM 40 MG TABLET PO SCH (10:00)
[2023-07-26 12:00] VITALS: BP 158/86
[2023-07-26] MEDS ORDERED: FAMOTIDINE 50 ML IV ONE (12:10)
[2023-07-26 12:43] LABS: CHLORIDE 103 mmol/L (98-107); POTASSIUM 2.7 mmol/L (3.4-5.1)
[2023-07-26 12:44] LABS: BUN < 5 mg/dl (9-23)
[2023-07-26] MEDS ORDERED: POTASSIUM CHLORIDE IN WATER 100 ML IV SCH (14:00)
[2023-07-26] MEDS ORDERED: POTASSIUM CL D5/.45NS SOL. 1,000 ML IV SCH (15:55)
[2023-07-26 16:00] VITALS: BP 150/86
[2023-07-26 16:26] LABS: BUN 7 mg/dl (9-23); CHLORIDE 101 mmol/L (98-107)
[2023-07-26] MEDS ORDERED: POTASSIUM CHLORIDE 20 MEQ TAB PO ONE (16:30)
[2023-07-26 16:31] LABS: POTASSIUM 4.3 mmol/L (3.4-5.1)
[2023-07-26 20:00] VITALS: BP 156/97
[2023-07-26 20:27] LABS: BUN 9 mg/dl (9-23); CHLORIDE 102 mmol/L (98-107); POTASSIUM 3.7 mmol/L (3.4-5.1)
[2023-07-26] MEDS ORDERED: POTASSIUM CH/0.45 NS 1,000 ML IV SCH (21:05)
[2023-07-26] MEDS ORDERED: DEXTROSE 5% SALINE 0.45% 1,000 ML IV SCH (22:25)
[2023-07-27] VITALS: BP 156/97
[2023-07-27 00:34] LABS: BUN 7 mg/dl (9-23); CHLORIDE 102 mmol/L (98-107); POTASSIUM 3.7 mmol/L (3.4-5.1)
[2023-07-27 04:00] VITALS: BP 136/86
[2023-07-27 05:26] LABS: BUN 6 mg/dl (9-23); CHLORIDE 102 mmol/L (98-107); POTASSIUM 3.6 mmol/L (3.4-5.1)
[2023-07-27 06:32] LABS: BASO % 0.1 % (0.0-1.0); EOS % 0.3 % (1.0-4.0); LYMPH # 2.8 10*3/uL (1.3-4.4); LYMPH % 24.8 % (27.0-41.0); MEAN CELL VOLUME 92.3 fl (81.0-99.0); MEAN CORPUSCULAR HGB 30.7 pg (27.0-31.0); MEAN CORPUSCULAR HGB CONC 33.2 g/dl (33.0-37.0); MEAN PLATELET VOLUME 9.4 fl (9.6-12.3); MONO # 0.8 10*3/uL (0.1-1.0); MONO % 6.9 % (3.0-9.0); NEUT # 7.6 10*3/uL (2.3-7.9); NEUT % 67.6 % (47.0-73.0); PLATELET COUNT AUTOMATED 299 10*3/uL (130-400); RED BLOOD COUNT 3.36 10*6/uL (4.10-5.10); RED CELL DISTRI WIDTH 11.9 % (0-14.5); WHITE BLOOD COUNT 11.2 10*3/uL (4.8-10.8)
[2023-07-27 08:00] VITALS: BP 156/97
[2023-07-27 12:00] VITALS: BP 169/92
[2023-07-27] MEDS ORDERED: Dicyclomine Hydrochloride 20 MG/10 ML OSYR PO STA (13:46)
[2023-07-27] MEDS ORDERED: Lidocaine Hydrochloride 15 ML UDC PO STA (13:46)
[2023-07-27] MEDS ORDERED: MG-AL HYDROXIDE/SIMETICONE 30 ML UDC PO STA (13:46)
[2023-07-27 16:00] VITALS: BP 152/99
[2023-07-27 16:54] LABS: BUN 6 mg/dl (9-23); CHLORIDE 100 mmol/L (98-107); POTASSIUM 3.7 mmol/L (3.4-5.1)
[2023-07-27] MEDS ORDERED: Insulin Glargine, Recombinan 1 UNIT/0.01 ML SC ONE (18:00)
[2023-07-27 20:00] VITALS: BP 143/97
[2023-07-28] VITALS: BP 127/88
[2023-07-28 04:00] VITALS: BP 117/81
[2023-07-28 04:59] LABS: BUN 6 mg/dl (9-23); CHLORIDE 103 mmol/L (98-107); POTASSIUM 3.4 mmol/L (3.4-5.1)
[2023-07-28 06:06] LABS: BASO % 0.3 % (0.0-1.0); EOS # 0.2 10*3/uL (0.0-0.4); EOS % 2.4 % (1.0-4.0); LYMPH # 3.6 10*3/uL (1.3-4.4); LYMPH % 46.2 % (27.0-41.0); MEAN CELL VOLUME 91.2 fl (81.0-99.0); MEAN CORPUSCULAR HGB 31.1 pg (27.0-31.0); MEAN CORPUSCULAR HGB CONC 34.1 g/dl (33.0-37.0); MEAN PLATELET VOLUME 9.5 fl (9.6-12.3); MONO # 0.7 10*3/uL (0.1-1.0); MONO % 8.3 % (3.0-9.0); NEUT # 3.3 10*3/uL (2.3-7.9); NEUT % 42.7 % (47.0-73.0); PLATELET COUNT AUTOMATED 301 10*3/uL (130-400); RED BLOOD COUNT 3.51 10*6/uL (4.10-5.10); WHITE BLOOD COUNT 7.8 10*3/uL (4.8-10.8)
[2023-07-28 08:00] VITALS: BP 131/89
[2023-07-28 12:00] VITALS: BP 137/89
== END 2023-07-28 13:58 | disposition home or self-care (01) | DRG 637 ==
LOC: ED 20:28 → ICCU 21:50 → EDHOLD 21:50 → ICCU 22:43
PROVIDERS: Family Medicine; Internal Medicine; Student in an Organized Health Care Education/Training Program; ADMIT Internal Medicine; ATTEND Internal Medicine
DX: E10.10 Type 1 diabetes mellitus with ketoacidosis without coma (principal); N17.0 Acute kidney failure with tubular necrosis; R65.10 Systemic inflammatory response syndrome (SIRS) of non-infectious origin without acute organ dysfunction; E78.5 Hyperlipidemia, unspecified; E55.9 Vitamin D deficiency, unspecified; N18.31 Chronic kidney disease, stage 3a; F41.1 Generalized anxiety disorder; E10.22 Type 1 diabetes mellitus with diabetic chronic kidney disease; E10.49 Type 1 diabetes mellitus with other diabetic neurological complication; F32.9 Major depressive disorder, single episode, unspecified; E87.8 Other disorders of electrolyte and fluid balance, not elsewhere classified; Z91.040 Latex allergy status; Z88.8 Allergy status to other drugs, medicaments and biological substances; Z79.4 Long term (current) use of insulin; Z79.899 Other long term (current) drug therapy

== ENCOUNTER → 2023-08-08 | Outpatient (CLI) | payer OTHER ==
[~2023-08-08] MED LIST changes: +LIPITOR40 MG PO; +TOUJEO MAX300 UNIT/1 SQ
[2023-08-08 09:56] LABS: BASO % 0.6 % (0.0-1.0); EOS # 0.5 10*3/uL (0.0-0.4); EOS % 8.2 % (1.0-4.0); HEMATOCRIT 38.3 % (37.0-47.0); LYMPH # 2.6 10*3/uL (1.3-4.4); LYMPH % 41.5 % (27.0-41.0); MEAN CELL VOLUME 96.5 fl (81.0-99.0); MEAN CORPUSCULAR HGB CONC 32.1 g/dl (33.0-37.0); MEAN PLATELET VOLUME 8.4 fl (9.6-12.3); MONO # 0.4 10*3/uL (0.1-1.0); MONO % 6.6 % (3.0-9.0); NEUT # 2.7 10*3/uL (2.3-7.9); NEUT % 42.8 % (47.0-73.0); PLATELET COUNT AUTOMATED 397 10*3/uL (130-400); RED BLOOD COUNT 3.97 10*6/uL (4.10-5.10); RED CELL DISTRI WIDTH 13.2 % (0-14.5); WHITE BLOOD COUNT 6.4 10*3/uL (4.8-10.8)
[2023-08-08 10:19] LABS: TOTAL PROTEIN 7.4 gm/dL (6.0-8.0)
== END | disposition home or self-care (01) ==
LOC: LAB 09:35
PROVIDERS: ATTEND Internal Medicine
DX: E11.10 Type 2 diabetes mellitus with ketoacidosis without coma (principal); N17.0 Acute kidney failure with tubular necrosis

== ENCOUNTER → 2023-08-12 | Outpatient (CLI) | payer MEDICARE, OTHER | END | disposition home or self-care (01) | LOC: WOUNDCARE | PROVIDERS: ATTEND Nurse Practitioner Family | DX: E11.621 Type 2 diabetes mellitus with foot ulcer (principal); L97.521 Non-pressure chronic ulcer of other part of left foot limited to breakdown of skin; L97.511 Non-pressure chronic ulcer of other part of right foot limited to breakdown of skin; L97.411 Non-pressure chronic ulcer of right heel and midfoot limited to breakdown of skin; L84 Corns and callosities; E11.65 Type 2 diabetes mellitus with hyperglycemia; E11.22 Type 2 diabetes mellitus with diabetic chronic kidney disease; N18.30 Chronic kidney disease, stage 3 unspecified; E11.10 Type 2 diabetes mellitus with ketoacidosis without coma; E11.40 Type 2 diabetes mellitus with diabetic neuropathy, unspecified; E55.9 Vitamin D deficiency, unspecified; E78.5 Hyperlipidemia, unspecified; L20.9 Atopic dermatitis, unspecified; F31.9 Bipolar disorder, unspecified; Z98.890 Other specified postprocedural states; Z79.4 Long term (current) use of insulin; Z79.899 Other long term (current) drug therapy ==

== ENCOUNTER → 2023-08-19 | Outpatient (CLI) | payer MEDICARE, OTHER | END | disposition home or self-care (01) | LOC: WOUNDCARE 01:43 | PROVIDERS: ATTEND Nurse Practitioner Family | DX: E11.621 Type 2 diabetes mellitus with foot ulcer (principal); L97.412 Non-pressure chronic ulcer of right heel and midfoot with fat layer exposed; L97.521 Non-pressure chronic ulcer of other part of left foot limited to breakdown of skin; L97.511 Non-pressure chronic ulcer of other part of right foot limited to breakdown of skin; E11.65 Type 2 diabetes mellitus with hyperglycemia; E11.22 Type 2 diabetes mellitus with diabetic chronic kidney disease; N18.30 Chronic kidney disease, stage 3 unspecified; E11.10 Type 2 diabetes mellitus with ketoacidosis without coma; E11.40 Type 2 diabetes mellitus with diabetic neuropathy, unspecified; E55.9 Vitamin D deficiency, unspecified; E78.5 Hyperlipidemia, unspecified; L20.9 Atopic dermatitis, unspecified; L84 Corns and callosities; F31.9 Bipolar disorder, unspecified; Z79.4 Long term (current) use of insulin; Z79.899 Other long term (current) drug therapy ==

== ENCOUNTER → 2023-08-27 | Outpatient (CLI) | payer MEDICARE, OTHER | END | disposition home or self-care (01) | LOC: WOUNDCARE 02:42 | PROVIDERS: ATTEND Nurse Practitioner Family | DX: E11.621 Type 2 diabetes mellitus with foot ulcer (principal); L97.411 Non-pressure chronic ulcer of right heel and midfoot limited to breakdown of skin; L97.521 Non-pressure chronic ulcer of other part of left foot limited to breakdown of skin; L97.511 Non-pressure chronic ulcer of other part of right foot limited to breakdown of skin; E11.65 Type 2 diabetes mellitus with hyperglycemia; E11.22 Type 2 diabetes mellitus with diabetic chronic kidney disease; N18.30 Chronic kidney disease, stage 3 unspecified; E11.10 Type 2 diabetes mellitus with ketoacidosis without coma; E11.40 Type 2 diabetes mellitus with diabetic neuropathy, unspecified; E55.9 Vitamin D deficiency, unspecified; E78.5 Hyperlipidemia, unspecified; L20.9 Atopic dermatitis, unspecified; L84 Corns and callosities; F31.9 Bipolar disorder, unspecified; F12.90 Cannabis use, unspecified, uncomplicated; Z79.4 Long term (current) use of insulin; Z79.899 Other long term (current) drug therapy ==

== ENCOUNTER → 2023-09-03 | Outpatient (CLI) | payer MEDICARE, OTHER | END | disposition home or self-care (01) | LOC: WOUNDCARE 00:54 | PROVIDERS: ATTEND Nurse Practitioner Family | DX: E10.621 Type 1 diabetes mellitus with foot ulcer (principal); L97.411 Non-pressure chronic ulcer of right heel and midfoot limited to breakdown of skin; L97.521 Non-pressure chronic ulcer of other part of left foot limited to breakdown of skin; L97.511 Non-pressure chronic ulcer of other part of right foot limited to breakdown of skin; L84 Corns and callosities; E10.65 Type 1 diabetes mellitus with hyperglycemia; E10.22 Type 1 diabetes mellitus with diabetic chronic kidney disease; N18.30 Chronic kidney disease, stage 3 unspecified; E10.40 Type 1 diabetes mellitus with diabetic neuropathy, unspecified; E55.9 Vitamin D deficiency, unspecified; E78.5 Hyperlipidemia, unspecified; L20.9 Atopic dermatitis, unspecified; F31.9 Bipolar disorder, unspecified; F12.90 Cannabis use, unspecified, uncomplicated; Z79.4 Long term (current) use of insulin; Z79.899 Other long term (current) drug therapy ==

== ENCOUNTER → 2023-09-10 | Outpatient (CLI) | payer MEDICARE, OTHER | END | disposition home or self-care (01) | LOC: WOUNDCARE 00:55 | PROVIDERS: ATTEND Nurse Practitioner Family | DX: E10.621 Type 1 diabetes mellitus with foot ulcer (principal); L97.521 Non-pressure chronic ulcer of other part of left foot limited to breakdown of skin; L97.511 Non-pressure chronic ulcer of other part of right foot limited to breakdown of skin; L97.411 Non-pressure chronic ulcer of right heel and midfoot limited to breakdown of skin; L84 Corns and callosities; E10.65 Type 1 diabetes mellitus with hyperglycemia; E10.22 Type 1 diabetes mellitus with diabetic chronic kidney disease; N18.30 Chronic kidney disease, stage 3 unspecified; E10.40 Type 1 diabetes mellitus with diabetic neuropathy, unspecified; E10.620 Type 1 diabetes mellitus with diabetic dermatitis; E55.9 Vitamin D deficiency, unspecified; E78.5 Hyperlipidemia, unspecified; L30.1 Dyshidrosis [pompholyx]; F31.9 Bipolar disorder, unspecified; F12.90 Cannabis use, unspecified, uncomplicated; Z79.4 Long term (current) use of insulin; Z79.899 Other long term (current) drug therapy ==

== ENCOUNTER → 2023-09-18 | Outpatient (CLI) | payer MEDICARE, OTHER | END | disposition home or self-care (01) | LOC: WOUNDCARE 01:07 | PROVIDERS: ATTEND Nurse Practitioner Family | DX: E10.621 Type 1 diabetes mellitus with foot ulcer (principal); L97.511 Non-pressure chronic ulcer of other part of right foot limited to breakdown of skin; L97.521 Non-pressure chronic ulcer of other part of left foot limited to breakdown of skin; L30.1 Dyshidrosis [pompholyx]; L20.9 Atopic dermatitis, unspecified; E10.65 Type 1 diabetes mellitus with hyperglycemia; E10.22 Type 1 diabetes mellitus with diabetic chronic kidney disease; N18.30 Chronic kidney disease, stage 3 unspecified; E10.40 Type 1 diabetes mellitus with diabetic neuropathy, unspecified; E78.5 Hyperlipidemia, unspecified; F31.9 Bipolar disorder, unspecified ==

== ENCOUNTER → 2023-09-24 | Outpatient (CLI) | payer MEDICARE, OTHER | END | disposition home or self-care (01) | LOC: WOUNDCARE 01:06 | PROVIDERS: ATTEND Nurse Practitioner Family | DX: E10.621 Type 1 diabetes mellitus with foot ulcer (principal); L97.511 Non-pressure chronic ulcer of other part of right foot limited to breakdown of skin; L97.521 Non-pressure chronic ulcer of other part of left foot limited to breakdown of skin; L84 Corns and callosities; E10.65 Type 1 diabetes mellitus with hyperglycemia; E10.40 Type 1 diabetes mellitus with diabetic neuropathy, unspecified; E10.22 Type 1 diabetes mellitus with diabetic chronic kidney disease; N18.30 Chronic kidney disease, stage 3 unspecified; E55.9 Vitamin D deficiency, unspecified; E78.5 Hyperlipidemia, unspecified; L30.1 Dyshidrosis [pompholyx]; L20.9 Atopic dermatitis, unspecified; F31.9 Bipolar disorder, unspecified; F41.9 Anxiety disorder, unspecified; F12.90 Cannabis use, unspecified, uncomplicated; Z79.4 Long term (current) use of insulin; Z79.899 Other long term (current) drug therapy ==

== ENCOUNTER → 2023-10-01 | Outpatient (CLI) | payer MEDICARE, OTHER | END | disposition home or self-care (01) | LOC: WOUNDCARE 00:33 | PROVIDERS: ATTEND Nurse Practitioner Family | DX: E10.621 Type 1 diabetes mellitus with foot ulcer (principal); L97.511 Non-pressure chronic ulcer of other part of right foot limited to breakdown of skin; L97.521 Non-pressure chronic ulcer of other part of left foot limited to breakdown of skin; L84 Corns and callosities; E10.65 Type 1 diabetes mellitus with hyperglycemia; E10.40 Type 1 diabetes mellitus with diabetic neuropathy, unspecified; E10.22 Type 1 diabetes mellitus with diabetic chronic kidney disease; N18.30 Chronic kidney disease, stage 3 unspecified; E55.9 Vitamin D deficiency, unspecified; E78.5 Hyperlipidemia, unspecified; L30.1 Dyshidrosis [pompholyx]; L20.9 Atopic dermatitis, unspecified; F31.9 Bipolar disorder, unspecified; F41.9 Anxiety disorder, unspecified; F12.90 Cannabis use, unspecified, uncomplicated; Z79.4 Long term (current) use of insulin; Z79.899 Other long term (current) drug therapy ==

== ENCOUNTER → 2023-10-15 | Outpatient (CLI) | payer MEDICARE, OTHER | END | disposition home or self-care (01) | LOC: WOUNDCARE 02:07 | PROVIDERS: ATTEND Nurse Practitioner Family | DX: E10.621 Type 1 diabetes mellitus with foot ulcer (principal); L97.511 Non-pressure chronic ulcer of other part of right foot limited to breakdown of skin; L97.521 Non-pressure chronic ulcer of other part of left foot limited to breakdown of skin; L84 Corns and callosities; E10.65 Type 1 diabetes mellitus with hyperglycemia; E10.40 Type 1 diabetes mellitus with diabetic neuropathy, unspecified; E10.22 Type 1 diabetes mellitus with diabetic chronic kidney disease; N18.30 Chronic kidney disease, stage 3 unspecified; E55.9 Vitamin D deficiency, unspecified; E78.5 Hyperlipidemia, unspecified; L30.1 Dyshidrosis [pompholyx]; L20.9 Atopic dermatitis, unspecified; F31.9 Bipolar disorder, unspecified; F41.9 Anxiety disorder, unspecified; F12.90 Cannabis use, unspecified, uncomplicated; Z79.4 Long term (current) use of insulin; Z79.899 Other long term (current) drug therapy ==

== ENCOUNTER 2023-11-08 17:41 | Inpatient (IN) | payer MEDICARE, OTHER ==
[~2023-11-08] VITALS: Ht 154.9 cm; Wt 58.6 kg
[2023-11-08 17:55] VITALS: BP 146/93
[2023-11-08] MEDS ORDERED: ACETAMINOPHEN 325 MG TAB PO ONE (17:55)
[2023-11-08] MEDS ORDERED: SODIUM CHLORIDE 0.9% 1,000 ML IV ONE (17:55)
[2023-11-08 18:23] LABS: BASO % 0.2 % (0.0-1.0); HEMATOCRIT 41.2 % (37.0-47.0); MEAN CELL VOLUME 96.7 fl (81.0-99.0); MEAN CORPUSCULAR HGB 32.2 pg (27.0-31.0); MEAN CORPUSCULAR HGB CONC 33.3 g/dl (33.0-37.0); MEAN PLATELET VOLUME 9.4 fl (9.6-12.3); MONO # 0.5 10*3/uL (0.1-1.0); MONO % 3.6 % (3.0-9.0); NEUT # 13.1 10*3/uL (2.3-7.9); NEUT % 88.6 % (47.0-73.0); PLATELET COUNT AUTOMATED 334 10*3/uL (130-400); RED BLOOD COUNT 4.26 10*6/uL (4.10-5.10); WHITE BLOOD COUNT 14.8 10*3/uL (4.8-10.8)
[2023-11-08 18:58] LABS: POTASSIUM 3.8 mmol/L (3.4-5.1); TOTAL PROTEIN 7.8 gm/dL (6.0-8.0)
[2023-11-08] MEDS ORDERED: INSULIN REGULAR, HUMAN 1 UNIT/0.01 ML IV ONE (19:20)
[2023-11-08] MEDS ORDERED: MORPHINE Sulfate 2 MG/ML SYR IV ONE (19:20)
[2023-11-08] MEDS ORDERED: COMPAZINE10 M1 PO (19:45)
[2023-11-08] MEDS ORDERED: TEMAZEPAM 15 MG CAP PO PRN (20:05)
[2023-11-08] MEDS ORDERED: BISACODYL 10 MG SUPP R PRN (20:05)
[2023-11-08] MEDS ORDERED: Magnesium Hydroxide 30 ML UDC PO PRN (20:05)
[2023-11-08] MEDS ORDERED: ACETAMINOPHEN 650 MG SUPP R PRN (20:05)
[2023-11-08] MEDS ORDERED: Acetaminophen/Hydrocodone 5 MG/325 MG TABLET PO PRN (20:05)
[2023-11-08] MEDS ORDERED: BISACODYL 5 MG TAB PO PRN (20:05)
[2023-11-08] MEDS ORDERED: ACETAMINOPHEN 325 MG TAB PO PRN (20:05)
[2023-11-08] MEDS ORDERED: Ondansetron Hydrochloride 4 MG/2 ML VIAL IV PRN (20:05)
[2023-11-08 20:07] VITALS: BP 131/92
[2023-11-08 20:10] LABS: BILIRUBIN Negative (Negative); BLOOD Negative (Negative); CLARITY Clear (Clear); COLOR Yellow (Yellow); GLUCOSE 3+ (Negative); KETONE 2+ (Negative); LEUKO ESTERASE Negative (Negative); NITRITE Negative (Negative); SPECIFIC GRAVITY >= 1.030 (1.001-1.030)
[2023-11-08] MEDS ORDERED: POTASSIUM CHLORIDE 20 MEQ/100 ML BAG IV PRN (20:15)
[2023-11-08] MEDS ORDERED: INSULIN REGULAR IN 0.9 % NACL 100 ML IV SCH (20:15)
[2023-11-08] MEDS ORDERED: POTASSIUM CHLORIDE 20 MEQ TAB PO PRN (20:15)
[2023-11-08] MEDS ORDERED: SODIUM CHLORIDE 0.9% 1,000 ML IV SCH (20:20)
[2023-11-08 20:50] LABS: BACTERIA 1+
[2023-11-08 23:17] LABS: POTASSIUM 3.8 mmol/L (3.4-5.1)
[2023-11-08] MEDS ORDERED: DEXTROSE 5% SALINE 0.45% 1,000 ML IV SCH (23:45)
[2023-11-09] MEDS ORDERED: Ampicillin Sodium/Sulbactam 3 GM in SODIUM CHLORIDE 0.9% 100 ML IV SCH
[2023-11-09 00:01] VITALS: BP 128/76
[2023-11-09 02:04] LABS: POTASSIUM 3.6 mmol/L (3.4-5.1)
[2023-11-09 03:55] VITALS: BP 118/77
[2023-11-09 06:52] LABS: BASO % 0.2 % (0.0-1.0); EOS # 0.1 10*3/uL (0.0-0.4); EOS % 0.8 % (1.0-4.0); HEMATOCRIT 35.9 % (37.0-47.0); LYMPH # 2.8 10*3/uL (1.3-4.4); LYMPH % 23.2 % (27.0-41.0); MEAN CORPUSCULAR HGB 31.6 pg (27.0-31.0); MEAN CORPUSCULAR HGB CONC 32.6 g/dl (33.0-37.0); MEAN PLATELET VOLUME 9.1 fl (9.6-12.3); MONO # 0.9 10*3/uL (0.1-1.0); MONO % 7.2 % (3.0-9.0); NEUT # 8.4 10*3/uL (2.3-7.9); NEUT % 68.3 % (47.0-73.0); PLATELET COUNT AUTOMATED 315 10*3/uL (130-400); RED CELL DISTRI WIDTH 12.8 % (0-14.5); WHITE BLOOD COUNT 12.2 10*3/uL (4.8-10.8)
[2023-11-09 07:05] LABS: POTASSIUM 3.3 mmol/L (3.4-5.1)
[2023-11-09 08:07] VITALS: BP 130/85
[2023-11-09] MEDS ORDERED: POTASSIUM CHLORIDE IN WATER 100 ML IV SCH (09:00)
[2023-11-09] MEDS ORDERED: LORazepam 0.5 MG TAB PO SCH (10:00)
[2023-11-09] MEDS ORDERED: ATORVASTATIN CALCIUM 40 MG TABLET PO SCH (10:00)
[2023-11-09] MEDS ORDERED: Duloxetine Hydrochloride 60 MG CAP PO SCH (10:00)
[2023-11-09] MEDS ORDERED: Enoxaparin Sodium 30 MG/0.3 ML SYR SC SCH (10:00)
[2023-11-09 10:55] LABS: POTASSIUM 3.8 mmol/L (3.4-5.1)
[2023-11-09] MEDS ORDERED: AMOX-CLAV 875-1 EACH PO (11:03)
[2023-11-09] MEDS ORDERED: DEXTROSE 10 % IN WATER 250 ML IV PRN (11:50)
[2023-11-09] MEDS ORDERED: INSULIN LISPRO 1 UNIT/0.01 ML SQ SCH (16:30)
[2023-11-09] MEDS ORDERED: QUETIAPINE FUMARATE 100 MG TAB PO SCH (22:00)
== END 2023-11-09 11:14 | disposition home or self-care (01) | DRG 871 ==
LOC: ED 17:41 → EDHOLD 19:34
PROVIDERS: Physician Assistant Medical; Student in an Organized Health Care Education/Training Program; ADMIT Internal Medicine; ATTEND Internal Medicine
DX: A41.9 Sepsis, unspecified organism (principal); E10.10 Type 1 diabetes mellitus with ketoacidosis without coma; N17.0 Acute kidney failure with tubular necrosis; K04.7 Periapical abscess without sinus; F41.1 Generalized anxiety disorder; E78.5 Hyperlipidemia, unspecified; D72.9 Disorder of white blood cells, unspecified; E87.8 Other disorders of electrolyte and fluid balance, not elsewhere classified; F31.9 Bipolar disorder, unspecified; E10.69 Type 1 diabetes mellitus with other specified complication; E10.22 Type 1 diabetes mellitus with diabetic chronic kidney disease; I12.9 Hypertensive chronic kidney disease with stage 1 through stage 4 chronic kidney disease, or unspecified chronic kidney disease; E10.49 Type 1 diabetes mellitus with other diabetic neurological complication; F43.10 Post-traumatic stress disorder, unspecified; N18.32 Chronic kidney disease, stage 3b; R65.20 Severe sepsis without septic shock; Z88.8 Allergy status to other drugs, medicaments and biological substances; Z91.040 Latex allergy status; X58.XXXA Exposure to other specified factors, initial encounter; Y93.89 Activity, other specified; Y92.89 Other specified places as the place of occurrence of the external cause; Y99.8 Other external cause status

== ENCOUNTER 2023-12-14 07:06 | Observation (INO) | payer MEDICARE, OTHER ==
[~2023-12-14] VITALS: Ht 154.9 cm; Wt 59.6 kg
[~2023-12-14 07:06] MED LIST changes: +AMOX-CLAV 875-1 EACH PO
[2023-12-14 07:09] VITALS: BP 135/84
[2023-12-14] MEDS ORDERED: SODIUM CHLORIDE 0.9% 1,000 ML IV ONE (07:20)
[2023-12-14] MEDS ORDERED: MORPHINE Sulfate 2 MG/ML SYR IV ONE (07:20)
[2023-12-14] MEDS ORDERED: MELOXICAM15 MG PO (07:24)
[2023-12-14] MEDS ORDERED: Ondansetron Hydrochloride 4 MG/2 ML VIAL IV ONE (07:30)
[2023-12-14 07:56] LABS: BASO % 0.2 % (0.0-1.0); HEMATOCRIT 35.4 % (37.0-47.0); LYMPH # 1.6 10*3/uL (1.3-4.4); LYMPH % 8.9 % (27.0-41.0); MEAN CELL VOLUME 95.4 fl (81.0-99.0); MEAN CORPUSCULAR HGB 32.3 pg (27.0-31.0); MEAN CORPUSCULAR HGB CONC 33.9 g/dl (33.0-37.0); MEAN PLATELET VOLUME 9.9 fl (9.6-12.3); MONO # 0.7 10*3/uL (0.1-1.0); MONO % 4.1 % (3.0-9.0); NEUT # 15.8 10*3/uL (2.3-7.9); NEUT % 86.3 % (47.0-73.0); PLATELET COUNT AUTOMATED 355 10*3/uL (130-400); RED BLOOD COUNT 3.71 10*6/uL (4.10-5.10); RED CELL DISTRI WIDTH 12.6 % (0-14.5); WHITE BLOOD COUNT 18.3 10*3/uL (4.8-10.8)
[2023-12-14 08:15] LABS: ALKALINE PHOSPHATASE 114 U/L (46-116); BUN 16 mg/dl (9-23); CHLORIDE 100 mmol/L (98-107); LIPASE 22 U/L (12-53); SGPT/ALT 22 U/L (5-49); TOTAL PROTEIN 7.8 gm/dL (6.0-8.0)
[2023-12-14 08:23] LABS: ETHYL ALCOHOL < 3.0 mg/dl (<3)
[2023-12-14] MEDS ORDERED: INSULIN REGULAR, HUMAN 1 UNIT/0.01 ML IV ONE (09:45)
[2023-12-14] MEDS ORDERED: MORPHINE Sulfate 2 MG/ML SYR IV PRN (11:55)
[2023-12-14] MEDS ORDERED: Magnesium Hydroxide 30 ML UDC PO PRN (11:55)
[2023-12-14] MEDS ORDERED: BISACODYL 5 MG TAB PO PRN (11:55)
[2023-12-14] MEDS ORDERED: DEXTROSE 10 % IN WATER 250 ML IV PRN (11:55)
[2023-12-14] MEDS ORDERED: Acetaminophen/Hydrocodone 5 MG/325 MG TABLET PO PRN (11:55)
[2023-12-14] MEDS ORDERED: BISACODYL 10 MG SUPP R PRN (11:55)
[2023-12-14] MEDS ORDERED: Ondansetron Hydrochloride 4 MG/2 ML VIAL IV PRN (11:55)
[2023-12-14] MEDS ORDERED: Pantoprazole Sodium 40 MG VIAL IV PRN (12:10)
[2023-12-14] MEDS ORDERED: SODIUM CHLORIDE 0.9% 1,000 ML IV SCH (12:20)
[2023-12-14 14:00] VITALS: BP 110/72
[2023-12-14] MEDS ORDERED: INSULIN LISPRO 1 UNIT/0.01 ML SQ SCH (16:30)
[2023-12-14] MEDS ORDERED: Pantoprazole Sodium 40 MG TAB PO PRN (17:09)
[2023-12-14 18:23] VITALS: BP 122/68
[2023-12-14 18:39] LABS: POTASSIUM 3.6 mmol/L (3.4-5.1)
[2023-12-14 21:00] VITALS: BP 134/84
[2023-12-14] MEDS ORDERED: Metoclopramide Hydrochloride 5 MG TAB PO ONE (21:25)
[2023-12-14] MEDS ORDERED: Insulin Glargine, Recombinan 1 UNIT/0.01 ML SC SCH (22:15)
[2023-12-14] MEDS ORDERED: QUETIAPINE FUMARATE 300 MG TAB PO SCH (22:29)
[2023-12-14] MEDS ORDERED: LORazepam 0.5 MG TAB PO SCH (22:29)
[2023-12-14] MEDS ORDERED: Promethazine Hydrochloride 25 MG TAB PO ONE (22:35)
[2023-12-15] VITALS: BP 123/78
[2023-12-15 02:03] LABS: BILIRUBIN Negative (Negative); BLOOD Negative (Negative); CLARITY Cloudy (Clear); COLOR Yellow (Yellow); GLUCOSE 3+ (Negative); KETONE 2+ (Negative); LEUKO ESTERASE Negative (Negative); NITRITE Negative (Negative); SPECIFIC GRAVITY >= 1.030 (1.001-1.030); UROBILINOGEN 0.2 E.U./dl (0.0-1.0)
[2023-12-15] MEDS ORDERED: hydrOXYzine pamoate 25 MG CAP PO ONE (02:05)
[2023-12-15 02:10] LABS: URINE AMPHETAMINES Negative (1000ng/ml); URINE BARBITURATES Negative (200ng/ml); URINE BENZODIAZEPINES Positive (200ng/ml); URINE CANNABINOIDS (THC) Positive (50ng/ml); URINE COCAINE Negative (300ng/ml); URINE METHADONE Negative (300ng/ml); URINE OPIATES Positive (300ng/ml); URINE PHENCYCLIDINE Negative (25ng/ml)
[2023-12-15 02:23] LABS: EPITHELIAL CELLS 21-30; YEAST TRACE
[2023-12-15 06:20] LABS: BASO % 0.2 % (0.0-1.0); EOS # 0.1 10*3/uL (0.0-0.4); EOS % 0.8 % (1.0-4.0); HEMATOCRIT 33.5 % (37.0-47.0); LYMPH % 22.8 % (27.0-41.0); MEAN CELL VOLUME 94.6 fl (81.0-99.0); MEAN CORPUSCULAR HGB 31.9 pg (27.0-31.0); MEAN CORPUSCULAR HGB CONC 33.7 g/dl (33.0-37.0); MEAN PLATELET VOLUME 9.9 fl (9.6-12.3); MONO # 0.9 10*3/uL (0.1-1.0); MONO % 6.9 % (3.0-9.0); NEUT # 9.2 10*3/uL (2.3-7.9); NEUT % 68.9 % (47.0-73.0); PLATELET COUNT AUTOMATED 297 10*3/uL (130-400); RED BLOOD COUNT 3.54 10*6/uL (4.10-5.10); RED CELL DISTRI WIDTH 12.4 % (0-14.5); WHITE BLOOD COUNT 13.4 10*3/uL (4.8-10.8)
[2023-12-15 07:07] LABS: FREE T4 0.81 ng/dl (0.89-1.76); POTASSIUM 3.3 mmol/L (3.4-5.1)
[2023-12-15 08:00] VITALS: BP 106/66
[2023-12-15] MEDS ORDERED: POTASSIUM CHLORIDE 10 MEQ TAB PO ONE (08:25)
[2023-12-15] MEDS ORDERED: Enoxaparin Sodium 40 MG/0.4 ML SYR SC SCH (10:00)
[2023-12-15] MEDS ORDERED: ATORVASTATIN CALCIUM 40 MG TABLET PO SCH (10:00)
[2023-12-15] MEDS ORDERED: Duloxetine Hydrochloride 60 MG CAP PO SCH (10:00)
[2023-12-15 12:00] VITALS: BP 138/87
== END 2023-12-15 12:15 | disposition home or self-care (01) ==
LOC: ED 07:06 → EDHOLD 09:54 → 4E 19:35
PROVIDERS: Internal Medicine; Student in an Organized Health Care Education/Training Program; ADMIT Family Medicine; ATTEND Family Medicine
DX: E11.65 Type 2 diabetes mellitus with hyperglycemia (principal); E11.22 Type 2 diabetes mellitus with diabetic chronic kidney disease; N18.30 Chronic kidney disease, stage 3 unspecified; E11.43 Type 2 diabetes mellitus with diabetic autonomic (poly)neuropathy; N17.0 Acute kidney failure with tubular necrosis; R00.0 Tachycardia, unspecified; E83.59 Other disorders of calcium metabolism; E87.1 Hypo-osmolality and hyponatremia; R65.10 Systemic inflammatory response syndrome (SIRS) of non-infectious origin without acute organ dysfunction; D72.829 Elevated white blood cell count, unspecified; F31.9 Bipolar disorder, unspecified; F32.9 Major depressive disorder, single episode, unspecified; F41.0 Panic disorder [episodic paroxysmal anxiety]; F43.10 Post-traumatic stress disorder, unspecified; E83.52 Hypercalcemia; E78.5 Hyperlipidemia, unspecified; E28.2 Polycystic ovarian syndrome; F12.188 Cannabis abuse with other cannabis-induced disorder; Z79.899 Other long term (current) drug therapy

== ENCOUNTER 2024-03-20 02:23 | Emergency (ER) | payer MEDICARE, OTHER ==
[~2024-03-20] VITALS: Ht 154.9 cm; Wt 61.2 kg
[~2024-03-20 02:23] MED LIST changes: +MELOXICAM15 MG PO
[2024-03-20] MEDS ORDERED: LORazepam 2 MG/ML VIAL IV ONE (04:05)
== END 2024-03-20 04:19 | disposition short-term general hospital (02) ==
LOC: ED 02:23
DX: G45.3 Amaurosis fugax (principal); F41.9 Anxiety disorder, unspecified; E11.40 Type 2 diabetes mellitus with diabetic neuropathy, unspecified; F31.9 Bipolar disorder, unspecified; E11.22 Type 2 diabetes mellitus with diabetic chronic kidney disease; Z79.4 Long term (current) use of insulin; F12.90 Cannabis use, unspecified, uncomplicated; Z88.8 Allergy status to other drugs, medicaments and biological substances; Z91.040 Latex allergy status; Z98.890 Other specified postprocedural states

== ENCOUNTER 2024-04-24 08:20 | Emergency (ER) | payer MEDICARE, OTHER ==
[~2024-04-24] VITALS: Ht 154.9 cm; Wt 61.2 kg
[2024-04-24] MEDS ORDERED: MELOXICAM15 MG PO (08:34)
[2024-04-24] MEDS ORDERED: AMOX-CLAV 875-1 EACH PO (08:34)
[2024-04-24] MEDS ORDERED: Amoxicillin/Clavulanate Pota 875 MG TAB PO ONE (08:35)
[2024-04-24] MEDS ORDERED: Acetaminophen/Oxycodone 5 MG/325 MG TABLET PO ONE (08:35)
== END 2024-04-24 08:34 | disposition home or self-care (01) ==
LOC: ED 08:20
DX: K04.7 Periapical abscess without sinus (principal); R22.0 Localized swelling, mass and lump, head; F41.9 Anxiety disorder, unspecified; F31.9 Bipolar disorder, unspecified; E10.22 Type 1 diabetes mellitus with diabetic chronic kidney disease; Z79.4 Long term (current) use of insulin; E10.40 Type 1 diabetes mellitus with diabetic neuropathy, unspecified; F12.90 Cannabis use, unspecified, uncomplicated; Z91.040 Latex allergy status; Z88.8 Allergy status to other drugs, medicaments and biological substances; Z98.890 Other specified postprocedural states

== ENCOUNTER → 2024-06-06 | Outpatient (CLI) | payer OTHER | END | disposition home or self-care (01) | LOC: WOUNDCARE 01:00 | PROVIDERS: ATTEND Nurse Practitioner Family | DX: L60.2 Onychogryphosis (principal); B35.1 Tinea unguium; E10.65 Type 1 diabetes mellitus with hyperglycemia; E10.40 Type 1 diabetes mellitus with diabetic neuropathy, unspecified; E10.22 Type 1 diabetes mellitus with diabetic chronic kidney disease; N18.30 Chronic kidney disease, stage 3 unspecified; E55.9 Vitamin D deficiency, unspecified; E78.5 Hyperlipidemia, unspecified; L30.1 Dyshidrosis [pompholyx]; L20.9 Atopic dermatitis, unspecified; F31.9 Bipolar disorder, unspecified; F41.9 Anxiety disorder, unspecified; F12.90 Cannabis use, unspecified, uncomplicated; Z79.4 Long term (current) use of insulin; Z79.899 Other long term (current) drug therapy ==

== ENCOUNTER 2024-08-23 20:10 | Emergency (ER) | payer OTHER ==
[~2024-08-23] VITALS: Ht 162.5 cm; Wt 72.6 kg
[2024-08-23] MEDS ORDERED: Ondansetron Hydrochloride 4 MG/2 ML VIAL IV ONE (20:15)
[2024-08-23] MEDS ORDERED: SODIUM CHLORIDE 0.9% 1,000 ML IV ONE (20:15)
[2024-08-23 20:29] LABS: BASO % 0.1 % (0.0-1.0); EOS % 0.1 % (1.0-4.0); HEMATOCRIT 35.7 % (37.0-47.0); MEAN CELL VOLUME 98.9 fl (81.0-99.0); MEAN CORPUSCULAR HGB CONC 33.3 g/dl (33.0-37.0); MONO # 0.5 10*3/uL (0.1-1.0); MONO % 3.4 % (3.0-9.0); NEUT # 11.9 10*3/uL (2.3-7.9); NEUT % 87.6 % (47.0-73.0); PLATELET COUNT AUTOMATED 338 10*3/uL (130-400); RED BLOOD COUNT 3.61 10*6/uL (4.10-5.10); RED CELL DISTRI WIDTH 12.6 % (0-14.5); WHITE BLOOD COUNT 13.5 10*3/uL (4.8-10.8)
[2024-08-23 20:48] LABS: POTASSIUM 3.3 mmol/L (3.4-5.1)
[2024-08-23] MEDS ORDERED: Promethazine Hydrochloride 25 MG/ML VIAL IM ONE (22:25)
[2024-08-23 22:43] LABS: BILIRUBIN Negative (Negative); BLOOD Negative (Negative); CLARITY Clear (Clear); COLOR Yellow (Yellow); GLUCOSE 3+ (Negative); KETONE 2+ (Negative); LEUKO ESTERASE Negative (Negative); NITRITE Negative (Negative); PH 7.5 (4.5-8.0); SPECIFIC GRAVITY >= 1.030 (1.001-1.030); UROBILINOGEN 0.2 E.U./dl (0.0-1.0)
[2024-08-23 23:20] LABS: EPITHELIAL CELLS 31-40; WBC 0-2 wbc/hpf (0-5)
[2024-08-24] MEDS ORDERED: Phenergan25 MG PO (00:25)
== END 2024-08-24 00:41 | disposition home or self-care (01) ==
LOC: ED 20:10
PROVIDERS: Internal Medicine
DX: R11.2 Nausea with vomiting, unspecified (principal); N17.9 Acute kidney failure, unspecified; E10.22 Type 1 diabetes mellitus with diabetic chronic kidney disease; N18.9 Chronic kidney disease, unspecified; E87.8 Other disorders of electrolyte and fluid balance, not elsewhere classified; D72.829 Elevated white blood cell count, unspecified; D64.9 Anemia, unspecified; Z88.8 Allergy status to other drugs, medicaments and biological substances; Z91.040 Latex allergy status; Z79.4 Long term (current) use of insulin; Z79.899 Other long term (current) drug therapy

== ENCOUNTER 2024-09-05 23:29 | Emergency (ER) | payer OTHER ==
[~2024-09-05] VITALS: Ht 154.9 cm; Wt 61.2 kg
[2024-09-05] MEDS ORDERED: METHOCARBAMOL 500 MG TAB PO ONE (23:40)
[2024-09-05] MEDS ORDERED: Ketorolac Tromethamine 60 MG/2 ML VIAL IM ONE (23:40)
[2024-09-05] MEDS ORDERED: NAPROXEN250 MG PO (23:50)
[2024-09-05] MEDS ORDERED: METHOCARBAMOL500 M1 PO (23:50)
[2024-09-06] MEDS ORDERED: PENICILLIN VK500 MG PO (00:09)
== END 2024-09-06 00:18 | disposition home or self-care (01) ==
LOC: ED 23:29
DX: S39.012A Strain of muscle, fascia and tendon of lower back, initial encounter (principal); E11.9 Type 2 diabetes mellitus without complications; F31.9 Bipolar disorder, unspecified; F41.9 Anxiety disorder, unspecified; Z79.4 Long term (current) use of insulin; Z79.899 Other long term (current) drug therapy; Z88.1 Allergy status to other antibiotic agents; Z88.8 Allergy status to other drugs, medicaments and biological substances; Z91.040 Latex allergy status; F12.90 Cannabis use, unspecified, uncomplicated; Z98.890 Other specified postprocedural states; X58.XXXA Exposure to other specified factors, initial encounter; Y93.89 Activity, other specified; Y92.89 Other specified places as the place of occurrence of the external cause; Y99.8 Other external cause status

== ENCOUNTER 2024-10-03 08:22 | Emergency (ER) | payer OTHER ==
[~2024-10-03] VITALS: Ht 165.1 cm; Wt 59.1 kg
[~2024-10-03 08:22] MED LIST changes: +B-121000 MCG PO; +BENICAR20 MG PO; +BUPRENORPHINE-1 EAC2 SL; +FUROSEMIDE40 MG PO; +LEVOTHYROXINE50 MCG PO; +LEVOTHYROXINE75 MCG PO; +LYVISPAH10 M1 PO; +METHOCARBAMOL500 M1 PO; +NAPROXEN250 MG PO; +NOVOLOG10 ML SC; +PENICILLIN VK500 MG PO
[2024-10-03] MEDS ORDERED: Ondansetron Hydrochloride 4 MG/2 ML VIAL IV ONE (08:30)
[2024-10-03] MEDS ORDERED: SODIUM CHLORIDE 0.9% 1,000 ML IV ONE (08:30)
[2024-10-03 08:53] LABS: VENOUS BLOOD GAS O2 SAT 65.6 % (60.0-85.0)
[2024-10-03 08:54] LABS: BASO % 0.1 % (0.0-1.0); HEMATOCRIT 30.7 % (37.0-47.0); MEAN CELL VOLUME 96.5 fl (81.0-99.0); MEAN CORPUSCULAR HGB 32.7 pg (27.0-31.0); MEAN CORPUSCULAR HGB CONC 33.9 g/dl (33.0-37.0); MEAN PLATELET VOLUME 9.4 fl (9.6-12.3); MONO # 0.9 10*3/uL (0.1-1.0); MONO % 5.7 % (3.0-9.0); NEUT # 13.4 10*3/uL (2.3-7.9); PLATELET COUNT AUTOMATED 392 10*3/uL (130-400); RED BLOOD COUNT 3.18 10*6/uL (4.10-5.10); RED CELL DISTRI WIDTH 12.5 % (0-14.5); WHITE BLOOD COUNT 15.4 10*3/uL (4.8-10.8)
[2024-10-03 09:16] LABS: ALKALINE PHOSPHATASE 64 U/L (46-116); BUN 21 mg/dl (9-23); CHLORIDE 100 mmol/L (98-107); LIPASE 21 U/L (12-53); POTASSIUM 3.9 mmol/L (3.4-5.1); SGPT/ALT 23 U/L (5-49); TOTAL PROTEIN 7.6 gm/dL (6.0-8.0)
[2024-10-03 09:18] LABS: BETA-HCG, QUANT < 3.0 mIU/mL (3-10)
[2024-10-03] MEDS ORDERED: POTASSIUM CHLORIDE 20 MEQ TAB PO ONE (09:20)
[2024-10-03] MEDS ORDERED: INSULIN REGULAR, HUMAN 1 UNIT/0.01 ML IV ONE (09:20)
[2024-10-03] MEDS ORDERED: diphenhydrAMINE hydrochloride 50 MG/ML VIAL IV ONE (11:05)
[2024-10-03] MEDS ORDERED: SODIUM CHLORIDE 0.9% 500 ML IV ONE (11:05)
== END 2024-10-03 12:14 | disposition home or self-care (01) ==
LOC: ED 08:22
PROVIDERS: Internal Medicine
DX: E10.65 Type 1 diabetes mellitus with hyperglycemia (principal); R11.2 Nausea with vomiting, unspecified; F12.90 Cannabis use, unspecified, uncomplicated; F41.9 Anxiety disorder, unspecified; R10.2 Pelvic and perineal pain; F31.9 Bipolar disorder, unspecified; E10.10 Type 1 diabetes mellitus with ketoacidosis without coma; E10.40 Type 1 diabetes mellitus with diabetic neuropathy, unspecified; Z79.4 Long term (current) use of insulin; Z88.8 Allergy status to other drugs, medicaments and biological substances; Z91.040 Latex allergy status; Z98.890 Other specified postprocedural states